=== PATIENT | male | born 1950 | race Caucasian/White ===

== ENCOUNTER 2022-08-24 11:58 | Emergency (ER) | payer OTHER, MEDICAID, SELFPAY ==
[2022-08-24] VITALS (32 sets, daily range): BP systolic 144–187; BP diastolic 83–115; PULSE 83–103; RESP 5–47; TEMP 37.4; O2SAT 89–97; BMI 26.5
--- NOTE | 2022-08-24 12:13 | DI.RAD.S_ITS ---
PROCEDURE: XR CHEST 2V INDICATIONS: URI, coughing up green TECHNIQUE: 2 views of the chest were acquired. COMPARISON: None. FINDINGS: Surgical changes and devices: None. Lungs and pleura: Coarse interstitial markings bilaterally, particularly in the lower lungs sparing costophrenic sulci. No dense parenchymal consolidations, significant pleural effusions, or pneumothorax. Mediastinum: Heart size is normal. Central pulmonary arteries are slightly prominent. No significant central venous congestion. Bones and chest wall: No suspicious bony abnormalities. Soft tissues appear unremarkable. IMPRESSION: 1. Coarse interstitial markings may indicate chronic interstitial lung disease, viral pneumonitis, senescent changes. Presence of an acute process is uncertain. Dictated by: Rita Calles M.D. on 08/24/2022 at 12:32 Approved by: Rita Calles M.D. on 08/24/2022 at 12:35
[2022-08-24 13:02] LABS: Influenza A - CEPHEID Flu A NEGATIVE (NEGATIVE); Influenza B - CEPHEID Flu B NEGATIVE (NEGATIVE); Respiratory Syncytial Virus Negative (Negative)
--- NOTE | 2022-08-24 13:49 | PC.NURSE ---
Pt reports exposure to battery acid about 1 year ago.
[2022-08-24 13:53] LABS: COVID-19 CEPHEID 4-PLEX PCR Negative (Negative)
--- NOTE | 2022-08-24 14:13 | ED_ITS ---
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 (Vancomycin Trough) 1 request MISC 0600 ONE Stop: 08/27/22 06:01 Last Admin: 08/27/22 07:07 Dose: Not Given Documented By: HNG Vancomycin HCl (Vancomycin Peak) 1 request [facility] [place] 0900 ONE Stop: 08/27/22 09:01 Last Admin: 08/27/22 10:52 Dose: 1 request Documented By: GUILLERMO Vital Signs Vital signs: Vital Signs - 8 hr 08/27/22 03:30 08/27/22 04:00 08/27/22 04:01 Pulse Rate 63 62 Respiratory Rate 18 16 Blood Pressure 118/69 Pulse Oximetry 94 94 Oxygen Delivery Method Oxygen Flow Rate 08/27/22 04:01 08/27/22 07:57 08/27/22 07:58 Pulse Rate 63 79 Respiratory Rate 17 21 Blood Pressure 167/88 H Pulse Oximetry 94 95 Oxygen Delivery Method Nasal Cannula Oxygen Flow Rate 2 08/27/22 07:58 08/27/22 08:00 08/27/22 08:00 Pulse Rate 76 77 Respiratory Rate 21 19 Blood Pressure 168/93 H Pulse Oximetry 95 95 Oxygen Delivery Method Oxygen Flow Rate 08/27/22 08:30 08/27/22 08:30 08/27/22 09:00 Pulse Rate 88 Respiratory Rate 21 Blood Pressure 159/86 H 162/80 H Pulse Oximetry 95 Oxygen Delivery Method Nasal Cannula Oxygen Flow Rate 1 08/27/22 09:00 08/27/22 09:30 08/27/22 09:30 Pulse Rate 83 84 Respiratory Rate 18 21 Blood Pressure 150/84 H Pulse Oximetry 96 94 Oxygen Delivery Method Room Air Oxygen Flow Rate 08/27/22 09:59 08/27/22 10:00 08/27/22 10:00 Pulse Rate 74 77 Respiratory Rate 19 19 Blood Pressure 145/81 H Pulse Oximetry 90 L 90 L Oxygen Delivery Method Oxygen Flow Rate 08/27/22 10:30 Pulse Rate 79 Respiratory Rate 16 Blood Pressure Pulse Oximetry 92 Oxygen Delivery Method Oxygen Flow Rate <Finn Cali DO - Last Filed: 08/25/22 18:44> Orders Ordered: Discontinued Medications Amlodipine Besylate (Amlodipine 5 Mg Tablet) 5 mg PO NOW ONE Stop: 08/24/22 19:54 Last Admin: 08/24/22 21:58 Dose: 5 mg Documented By: DUANE Amlodipine Besylate (Amlodipine 5 Mg Tablet) 5 mg PO DAILY [facility] Last Admin: 08/26/22 08:13 Dose: 5 mg Documented By: Admin: 08/25/22 10:58 Dose: 5 mg Documented By: RB Amlodipine Besylate (Amlodipine 5 Mg Tablet) 10 mg PO NOW ONE Stop: 08/26/22 17:00 Last Admin: 08/26/22 17:03 Dose: 10 mg Documented By: RB Amlodipine Besylate (Amlodipine 5 Mg Tablet) 10 mg PO DAILY [facility] Last Admin: 08/27/22 08:28 Dose: 10 mg Documented By: GUILLERMO Aspirin (Aspirin 81 Mg Chew Tab) 324 mg PO NOW ONE Stop: 08/24/22 15:15 Last Admin: 08/24/22 15:20 Dose: 324 mg Documented By: DUANE Azithromycin (Azithromycin 250 Mg Tablet) 500 mg PO NOW ONE Stop: 08/24/22 17:32 Last Admin: 08/24/22 18:16 Dose: 500 mg Documented By: RB Carvedilol (Carvedilol 3.125 Mg Tablet) 6.25 mg PO BID [facility] Last Admin: 08/27/22 08:28 Dose: 6.25 mg Documented By: Admin: 08/26/22 20:53 Dose: 6.25 mg Documented By: VIJAYA Diazepam (Diazepam 5 Mg Tablet) 5 mg PO NOW ONE Stop: 08/24/22 21:56 Last Admin: 08/24/22 22:01 Dose: 5 mg Documented By: DUANE Diazepam (Diazepam 5 Mg Tablet) 5 mg PO NOW ONE Stop: 08/26/22 01:26 Last Admin: 08/26/22 01:32 Dose: 5 mg Documented By: ROLANDO Diazepam (Diazepam 5 Mg Tablet) 5 mg PO BEDTIME [facility] Last Admin: 08/26/22 23:44 Dose: 5 mg Documented By: VIJAYA POTASSIUM CHLORIDE IN WATER (Potassium Cl 10 Meq/100 Ml Leigh) 10 meq in 100 mls @ 100 mls/hr IV Q1H [facility] Stop: 08/24/22 18:59 Last Infusion: 08/24/22 20:16 Dose: 0 mls/hr Documented By: Admin: 08/24/22 19:05 Dose: 100 mls/hr Documented By: Infusion: 08/24/22 19:04 Dose: 0 mls/hr Documented By: Admin: 08/24/22 17:20 Dose: 100 mls/hr Documented By: Infusion: 08/24/22 17:18 Dose: 0 mls/hr Documented By: Admin: 08/24/22 16:16 Dose: 100 mls/hr Documented By: Infusion: 08/24/22 16:07 Dose: 100 mls/hr Documented By: Admin: 08/24/22 15:07 Dose: 100 mls/hr Documented By: SB Sodium Chloride (Normal Saline 0.9%) 1,000 mls @ 100 mls/hr IV CONT [facility] Last Infusion: 08/24/22 22:17 Dose: 0 mls/hr Documented By: Admin: 08/24/22 15:09 Dose: 100 mls/hr Documented By: SB Ceftriaxone Sodium 2,000 mg/ (Sodium Chloride) 100 mls @ 200 mls/hr IV NOW ONE Stop: 08/24/22 17:32 Last Infusion: 08/24/22 19:04 Dose: 0 mls/hr Documented By: Admin: 08/24/22 18:16 Dose: 200 mls/hr Documented By: RB Cefepime HCl 2 gm/ Sodium (Chloride) 100 mls @ 200 mls/hr IV NOW ONE Stop: 08/24/22 19:54 Last Infusion: 08/24/22 21:50 Dose: 0 mls/hr Documented By: Admin: 08/24/22 20:18 Dose: 200 mls/hr Documented By: SB Cefepime HCl 2 gm/ Sodium (Chloride) 100 mls @ 200 mls/hr IV Q8HR [facility] Last Admin: 08/25/22 22:18 Dose: Not Given Documented By: Infusion: 08/25/22 21:54 Dose: 0 mls/hr Documented By: Admin: 08/25/22 21:23 Dose: 200 mls/hr Documented By: HNG Vancomycin HCl (Vancomycin) 1,000 mg in 200 mls @ 200 mls/hr IV NOW ONE Stop: 08/25/22 09:59 Last Infusion: 08/25/22 10:24 Dose: 0 mls/hr Documented By: Admin: 08/25/22 09:24 Dose: 200 mls/hr Documented By: RB POTASSIUM CHLORIDE IN WATER (Potassium Cl 10 Meq/100 Ml Leigh) 10 meq in 100 mls @ 100 mls/hr IV Q1H [facility] Stop: 08/25/22 12:14 Last Infusion: 08/25/22 13:31 Dose: 0 mls/hr Documented By: Admin: 08/25/22 12:23 Dose: 100 mls/hr Documented By: Infusion: 08/25/22 12:22 Dose: 100 mls/hr Documented By: Admin: 08/25/22 11:22 Dose: 100 mls/hr Documented By: Infusion: 08/25/22 11:22 Dose: 100 mls/hr Documented By: Admin: 08/25/22 10:21 Dose: 100 mls/hr Documented By: Infusion: 08/25/22 10:20 Dose: 0 mls/hr Documented By: Admin: 08/25/22 09:14 Dose: 100 mls/hr Documented By: EUSEBIA Sodium Chloride (Normal Saline 0.9%) 1,000 mls @ 125 mls/hr IV CONT [facility] Last Infusion: 08/25/22 17:41 Dose: 0 mls/hr Documented By: Admin: 08/25/22 09:19 Dose: 125 mls/hr Documented By: EUSEBIA Vancomycin HCl/Dextrose (Vancomycin) 1,500 mg in 300 mls @ 200 mls/hr IV Q12H [facility] Last Infusion: 08/27/22 09:34 Dose: 0 mls/hr Documented By: Admin: 08/27/22 07:51 Dose: 200 mls/hr Documented By: Infusion: 08/26/22 19:43 Dose: 0 mls/hr Documented By: Admin: 08/26/22 17:58 Dose: 200 mls/hr Documented By: Infusion: 08/26/22 10:00 Dose: 0 mls/hr Documented By: Admin: 08/26/22 08:12 Dose: 200 mls/hr Documented By: Infusion: 08/25/22 21:01 Dose: 0 mls/hr Documented By: Admin: 08/25/22 19:24 Dose: 200 mls/hr Documented By: ROLANDO POTASSIUM CHLORIDE IN WATER (Potassium Cl 10 Meq/100 Ml Leigh) 10 meq in 100 mls @ 100 mls/hr IV Q1H [facility] Stop: 08/26/22 01:44 Last Infusion: 08/26/22 04:01 Dose: 0 mls/hr Documented By: Admin: 08/26/22 02:49 Dose: 100 mls/hr Documented By: Infusion: 08/26/22 02:49 Dose: 0 mls/hr Documented By: Admin: 08/26/22 01:15 Dose: 100 mls/hr Documented By: Infusion: 08/26/22 01:15 Dose: 0 mls/hr Documented By: Admin: 08/25/22 23:36 Dose: 100 mls/hr Documented By: Infusion: 08/25/22 23:36 Dose: 0 mls/hr Documented By: Admin: 08/25/22 22:11 Dose: 100 mls/hr Documented By: Infusion: 08/25/22 22:11 Dose: 0 mls/hr Documented By: Admin: 08/25/22 20:51 Dose: 100 mls/hr Documented By: Infusion: 08/25/22 20:51 Dose: 0 mls/hr Documented By: Admin: 08/25/22 19:42 Dose: 100 mls/hr Documented By: HNG Cefepime HCl 2 gm/ Sodium (Chloride) 100 mls @ 200 mls/hr IV Q8HR [facility] Last Infusion: 08/27/22 07:50 Dose: 0 mls/hr Documented By: Admin: 08/27/22 06:09 Dose: 200 mls/hr Documented By: Infusion: 08/26/22 21:49 Dose: 0 mls/hr Documented By: Admin: 08/26/22 20:45 Dose: 200 mls/hr Documented By: Infusion: 08/26/22 14:29 Dose: 0 mls/hr Documented By: Admin: 08/26/22 13:49 Dose: 200 mls/hr Documented By: Infusion: 08/26/22 07:58 Dose: 0 mls/hr Documented By: Admin: 08/26/22 06:58 Dose: 200 mls/hr Documented By: HNG POTASSIUM CHLORIDE IN WATER (Potassium Cl 10 Meq/100 Ml Leigh) 10 meq in 100 mls @ 100 mls/hr IV Q1H [facility] Stop: 08/26/22 22:44 Last Infusion: 08/27/22 00:19 Dose: 0 mls/hr Documented By: Admin: 08/26/22 22:55 Dose: 100 mls/hr Documented By: Infusion: 08/26/22 22:54 Dose: 0 mls/hr Documented By: Admin: 08/26/22 21:49 Dose: 100 mls/hr Documented By: Infusion: 08/26/22 21:44 Dose: 0 mls/hr Documented By: Admin: 08/26/22 20:42 Dose: 100 mls/hr Documented By: Infusion: 08/26/22 19:44 Dose: 100 mls/hr Documented By: Admin: 08/26/22 18:44 Dose: 100 mls/hr Documented By: EUSEBIA Sodium Chloride (Normal Saline 0.9%) 1,000 mls @ 125 mls/hr IV NOW ONE Stop: 08/27/22 02:34 Last Infusion: 08/27/22 01:46 Dose: 0 mls/hr Documented By: Admin: 08/26/22 18:43 Dose: 125 mls/hr Documented By: EUSEBIA Losartan Potassium (Losartan 50 Mg Tablet) 100 mg PO NOW ONE Stop: 08/24/22 19:54 Last Admin: 08/24/22 21:58 Dose: 100 mg Documented By: DUANE Losartan Potassium (Losartan 50 Mg Tablet) 100 mg PO DAILY [facility] Last Admin: 08/27/22 08:29 Dose: 100 mg Documented By: Admin: 08/26/22 09:09 Dose: 100 mg Documented By: Admin: 08/25/22 10:58 Dose: 100 mg Documented By: EUSEBIA Potassium Chloride (Potassium Chloride 20 Meq Tab) 40 meq PO NOW ONE Stop: 08/24/22 15:04 Last Admin: 08/24/22 15:20 Dose: 40 meq Documented By: DUANE Potassium Chloride (Potassium Chloride 20 Meq Tab) 40 meq PO NOW ONE Stop: 08/25/22 19:33 Last Admin: 08/25/22 19:41 Dose: 40 meq Documented By: ROLANDO Potassium Chloride ([facility]eq Tab) [facility] Last Admin: 08/27/22 08:28 Dose: 40 meq Documented By: Admin: 08/26/22 08:13 Dose: 40 meq Documented By: EUSEBIA Potassium Chloride (Potassium Chloride 20 Meq Tab) 40 meq PO NOW ONE Stop: 08/26/22 18:33 Last Admin: 08/26/22 18:43 Dose: 40 meq Documented By: RB Prednisone (Prednisone 20 Mg Tablet) 60 mg PO NOW ONE Stop: 08/24/22 17:08 Last Admin: 08/24/22 17:20 Dose: 60 mg Documented By: SB Vancomycin HCl (Vancomycin Per Pharmacy) 1 request MISC NOW ONE Stop: 08/25/22 18:23 Last Admin: 08/25/22 18:41 Dose: Not Given Documented By: RB Vancomycin HCl (Vancomycin Trough) 1 request MISC 0600 ONE Stop: 08/27/22 06:01 Last Admin: 08/27/22 07:07 Dose: Not Given Documented By: HNG Vancomycin HCl (Vancomycin Peak) 1 request MISC 0900 ONE Stop: 08/27/22 09:01 Last Admin: 08/27/22 10:52 Dose: 1 request Documented By: GUILLERMO Vital Signs Vital signs: Vital Signs - 8 hr 08/27/22 03:30 08/27/22 04:00 08/27/22 04:01 Pulse Rate 63 62 Respiratory Rate 18 16 Blood Pressure 118/69 Pulse Oximetry 94 94 Oxygen Delivery Method Oxygen Flow Rate 08/27/22 04:01 08/27/22 07:57 08/27/22 07:58 Pulse Rate 63 79 Respiratory Rate 17 21 Blood Pressure 167/88 H Pulse Oximetry 94 95 Oxygen Delivery Method Nasal Cannula Oxygen Flow Rate 2 08/27/22 07:58 08/27/22 08:00 08/27/22 08:00 Pulse Rate 76 77 Respiratory Rate 21 19 Blood Pressure 168/93 H Pulse Oximetry 95 95 Oxygen Delivery Method Oxygen Flow Rate 08/27/22 08:30 08/27/22 08:30 08/27/22 09:00 Pulse Rate 88 Respiratory Rate 21 Blood Pressure 159/86 H 162/80 H Pulse Oximetry 95 Oxygen Delivery Method Nasal Cannula Oxygen Flow Rate 1 08/27/22 09:00 08/27/22 09:30 08/27/22 09:30 Pulse Rate 83 84 Respiratory Rate 18 21 Blood Pressure 150/84 H Pulse Oximetry 96 94 Oxygen Delivery Method Room Air Oxygen Flow Rate 08/27/22 09:59 08/27/22 10:00 08/27/22 10:00 Pulse Rate 74 77 Respiratory Rate 19 19 Blood Pressure 145/81 H Pulse Oximetry 90 L 90 L Oxygen Delivery Method Oxygen Flow Rate 08/27/22 10:30 Pulse Rate 79 Respiratory Rate 16 Blood Pressure Pulse Oximetry 92 Oxygen Delivery Method Oxygen Flow Rate <Caitlin Emery, DO - Last Filed: 08/27/22 22:13> Orders Ordered: Discontinued Medications Amlodipine Besylate (Amlodipine 5 Mg Tablet) 5 mg PO NOW ONE Stop: 08/24/22 19:54 Last Admin: 08/24/22 21:58 Dose: 5 mg Documented By: DUANE Amlodipine Besylate (Amlodipine 5 Mg Tablet) 5 mg PO DAILY [facility] Last Admin: 08/26/22 08:13 Dose: 5 mg Documented By: Admin: 08/25/22 10:58 Dose: 5 mg Documented By: RB Amlodipine Besylate (Amlodipine 5 Mg Tablet) 10 mg PO NOW ONE Stop: 08/26/22 17:00 Last Admin: 08/26/22 17:03 Dose: 10 mg Documented By: RB Amlodipine Besylate (Amlodipine 5 Mg Tablet) 10 mg PO DAILY [facility] Last Admin: 08/27/22 08:28 Dose: 10 mg Documented By: GUILLERMO Aspirin (Aspirin 81 Mg Chew Tab) 324 mg PO NOW ONE Stop: 08/24/22 15:15 Last Admin: 08/24/22 15:20 Dose: 324 mg Documented By: DUANE Azithromycin (Azithromycin 250 Mg Tablet) 500 mg PO NOW ONE Stop: 08/24/22 17:32 Last Admin: 08/24/22 18:16 Dose: 500 mg Documented By: RB Carvedilol (Carvedilol 3.125 Mg Tablet) 6.25 mg PO BID [facility] Last Admin: 08/27/22 08:28 Dose: 6.25 mg Documented By: Admin: 08/26/22 20:53 Dose: 6.25 mg Documented By: VIJAYA Diazepam (Diazepam 5 Mg Tablet) 5 mg PO NOW ONE Stop: 08/24/22 21:56 Last Admin: 08/24/22 22:01 Dose: 5 mg Documented By: DUANE Diazepam (Diazepam 5 Mg Tablet) 5 mg PO NOW ONE Stop: 08/26/22 01:26 Last Admin: 08/26/22 01:32 Dose: 5 mg Documented By: ROLANDO Diazepam (Diazepam 5 Mg Tablet) 5 mg PO BEDTIME [facility] Last Admin: 08/26/22 23:44 Dose: 5 mg Documented By: VIJAYA POTASSIUM CHLORIDE IN WATER (Potassium Cl 10 Meq/100 Ml Leigh) 10 meq in 100 mls @ 100 mls/hr IV Q1H [facility] Stop: 08/24/22 18:59 Last Infusion: 08/24/22 20:16 Dose: 0 mls/hr Documented By: Admin: 08/24/22 19:05 Dose: 100 mls/hr Documented By: Infusion: 08/24/22 19:04 Dose: 0 mls/hr Documented By: Admin: 08/24/22 17:20 Dose: 100 mls/hr Documented By: Infusion: 08/24/22 17:18 Dose: 0 mls/hr Documented By: Admin: 08/24/22 16:16 Dose: 100 mls/hr Documented By: Infusion: 08/24/22 16:07 Dose: 100 mls/hr Documented By: Admin: 08/24/22 15:07 Dose: 100 mls/hr Documented By: SB Sodium Chloride (Normal Saline 0.9%) 1,000 mls @ 100 mls/hr IV CONT [facility] Last Infusion: 08/24/22 22:17 Dose: 0 mls/hr Documented By: Admin: 08/24/22 15:09 Dose: 100 mls/hr Documented By: SB Ceftriaxone Sodium 2,000 mg/ (Sodium Chloride) 100 mls @ 200 mls/hr IV NOW ONE Stop: 08/24/22 17:32 Last Infusion: 08/24/22 19:04 Dose: 0 mls/hr Documented By: Admin: 08/24/22 18:16 Dose: 200 mls/hr Documented By: RB Cefepime HCl 2 gm/ Sodium (Chloride) 100 mls @ 200 mls/hr IV NOW ONE Stop: 08/24/22 19:54 Last Infusion: 08/24/22 21:50 Dose: 0 mls/hr Documented By: Admin: 08/24/22 20:18 Dose: 200 mls/hr Documented By: SB Cefepime HCl 2 gm/ Sodium (Chloride) 100 mls @ 200 mls/hr IV Q8HR [facility] Last Admin: 08/25/22 22:18 Dose: Not Given Documented By: Infusion: 08/25/22 21:54 Dose: 0 mls/hr Documented By: Admin: 08/25/22 21:23 Dose: 200 mls/hr Documented By: ROLANDO Vancomycin HCl (Vancomycin) 1,000 mg in 200 mls @ 200 mls/hr IV NOW ONE Stop: 08/25/22 09:59 Last Infusion: 08/25/22 10:24 Dose: 0 mls/hr Documented By: Admin: 08/25/22 09:24 Dose: 200 mls/hr Documented By: RB POTASSIUM CHLORIDE IN WATER (Potassium Cl 10 Meq/100 Ml Leigh) 10 meq in 100 mls @ 100 mls/hr IV Q1H [facility] Stop: 08/25/22 12:14 Last Infusion: 08/25/22 13:31 Dose: 0 mls/hr Documented By: Admin: 08/25/22 12:23 Dose: 100 mls/hr Documented By: Infusion: 08/25/22 12:22 Dose: 100 mls/hr Documented By: Admin: 08/25/22 11:22 Dose: 100 mls/hr Documented By: Infusion: 08/25/22 11:22 Dose: 100 mls/hr Documented By: Admin: 08/25/22 10:21 Dose: 100 mls/hr Documented By: Infusion: 08/25/22 10:20 Dose: 0 mls/hr Documented By: Admin: 08/25/22 09:14 Dose: 100 mls/hr Documented By: RB Sodium Chloride (Normal Saline 0.9%) 1,000 mls @ 125 mls/hr IV CONT [facility] Last Infusion: 08/25/22 17:41 Dose: 0 mls/hr Documented By: Admin: 08/25/22 09:19 Dose: 125 mls/hr Documented By: EUSEBIA Vancomycin HCl/Dextrose (Vancomycin) 1,500 mg in 300 mls @ 200 mls/hr IV Q12H [facility] Last Infusion: 08/27/22 09:34 Dose: 0 mls/hr Documented By: Admin: 08/27/22 07:51 Dose: 200 mls/hr Documented By: Infusion: 08/26/22 19:43 Dose: 0 mls/hr Documented By: Admin: 08/26/22 17:58 Dose: 200 mls/hr Documented By: Infusion: 08/26/22 10:00 Dose: 0 mls/hr Documented By: Admin: 08/26/22 08:12 Dose: 200 mls/hr Documented By: Infusion: 08/25/22 21:01 Dose: 0 mls/hr Documented By: Admin: 08/25/22 19:24 Dose: 200 mls/hr Documented By: HNG POTASSIUM CHLORIDE IN WATER (Potassium Cl 10 Meq/100 Ml Leigh) 10 meq in 100 mls @ 100 mls/hr IV Q1H [facility] Stop: 08/26/22 01:44 Last Infusion: 08/26/22 04:01 Dose: 0 mls/hr Documented By: Admin: 08/26/22 02:49 Dose: 100 mls/hr Documented By: Infusion: 08/26/22 02:49 Dose: 0 mls/hr Documented By: Admin: 08/26/22 01:15 Dose: 100 mls/hr Documented By: Infusion: 08/26/22 01:15 Dose: 0 mls/hr Documented By: Admin: 08/25/22 23:36 Dose: 100 mls/hr Documented By: Infusion: 08/25/22 23:36 Dose: 0 mls/hr Documented By: Admin: 08/25/22 22:11 Dose: 100 mls/hr Documented By: Infusion: 08/25/22 22:11 Dose: 0 mls/hr Documented By: Admin: 08/25/22 20:51 Dose: 100 mls/hr Documented By: Infusion: 08/25/22 20:51 Dose: 0 mls/hr Documented By: Admin: 08/25/22 19:42 Dose: 100 mls/hr Documented By: ROLANDO Cefepime HCl 2 gm/ Sodium (Chloride) 100 mls @ 200 mls/hr IV Q8HR [facility] Last Infusion: 08/27/22 07:50 Dose: 0 mls/hr Documented By: Admin: 08/27/22 06:09 Dose: 200 mls/hr Documented By: Infusion: 08/26/22 21:49 Dose: 0 mls/hr Documented By: Admin: 08/26/22 20:45 Dose: 200 mls/hr Documented By: Infusion: 08/26/22 14:29 Dose: 0 mls/hr Documented By: Admin: 08/26/22 13:49 Dose: 200 mls/hr Documented By: Infusion: 08/26/22 07:58 Dose: 0 mls/hr Documented By: Admin: 08/26/22 06:58 Dose: 200 mls/hr Documented By: ROLANDO POTASSIUM CHLORIDE IN WATER (Potassium Cl 10 Meq/100 Ml Leigh) 10 meq in 100 mls @ 100 mls/hr IV Q1H [facility] Stop: 08/26/22 22:44 Last Infusion: 08/27/22 00:19 Dose: 0 mls/hr Documented By: Admin: 08/26/22 22:55 Dose: 100 mls/hr Documented By: Infusion: 08/26/22 22:54 Dose: 0 mls/hr Documented By: Admin: 08/26/22 21:49 Dose: 100 mls/hr Documented By: Infusion: 08/26/22 21:44 Dose: 0 mls/hr Documented By: Admin: 08/26/22 20:42 Dose: 100 mls/hr Documented By: Infusion: 08/26/22 19:44 Dose: 100 mls/hr Documented By: Admin: 08/26/22 18:44 Dose: 100 mls/hr Documented By: EUSEBIA Sodium Chloride (Normal Saline 0.9%) 1,000 mls @ 125 mls/hr IV NOW ONE Stop: 08/27/22 02:34 Last Infusion: 08/27/22 01:46 Dose: 0 mls/hr Documented By: Admin: 08/26/22 18:43 Dose: 125 mls/hr Documented By: EUSEBIA Losartan Potassium (Losartan 50 Mg Tablet) 100 mg PO NOW ONE Stop: 08/24/22 19:54 Last Admin: 08/24/22 21:58 Dose: 100 mg Documented By: DUANE Losartan Potassium (Losartan 50 Mg Tablet) 100 mg PO DAILY [facility] Last Admin: 08/27/22 08:29 Dose: 100 mg Documented By: Admin: 08/26/22 09:09 Dose: 100 mg Documented By: Admin: 08/25/22 10:58 Dose: 100 mg Documented By: EUSEBIA Potassium Chloride (Potassium Chloride 20 Meq Tab) 40 meq PO NOW ONE Stop: 08/24/22 15:04 Last Admin: 08/24/22 15:20 Dose: 40 meq Documented By: SB Potassium Chloride (Potassium Chloride 20 Meq Tab) 40 meq PO NOW ONE Stop: 08/25/22 19:33 Last Admin: 08/25/22 19:41 Dose: 40 meq Documented By: ROLANDO Potassium Chloride (Potassium Chloride 20 Meq Tab) 40 meq PO DAILYCC [facility] Last Admin: 08/27/22 08:28 Dose: 40 meq Documented By: Admin: 08/26/22 08:13 Dose: 40 meq Documented By: RB Potassium Chloride (Potassium Chloride 20 Meq Tab) 40 meq PO NOW ONE Stop: 08/26/22 18:33 Last Admin: 08/26/22 18:43 Dose: 40 meq Documented By: EUSEBIA Prednisone (Prednisone 20 Mg Tablet) 60 mg PO NOW ONE Stop: 08/24/22 17:08 Last Admin: 08/24/22 17:20 Dose: 60 mg Documented By: DUANE Vancomycin HCl (Vancomycin Per Pharmacy) 1 request MISC NOW ONE Stop: 08/25/22 18:23 Last Admin: 08/25/22 18:41 Dose: Not Given Documented By: EUSEBIA Vancomycin HCl (Vancomycin Trough) 1 request MISC 0600 ONE Stop: 08/27/22 06:01 Last Admin: 08/27/22 07:07 Dose: Not Given Documented By: ROLANDO Vancomycin HCl (Vancomycin Peak) 1 request MISC 0900 ONE Stop: 08/27/22 09:01 Last Admin: 08/27/22 10:52 Dose: 1 request Documented By: GUILLERMO Vital Signs Vital signs: Vital Signs - 8 hr 08/27/22 03:30 08/27/22 04:00 08/27/22 04:01 Pulse Rate 63 62 Respiratory Rate 18 16 Blood Pressure 118/69 Pulse Oximetry 94 94 Oxygen Delivery Method Oxygen Flow Rate 08/27/22 04:01 08/27/22 07:57 08/27/22 07:58 Pulse Rate 63 79 Respiratory Rate 17 21 Blood Pressure 167/88 H Pulse Oximetry 94 95 Oxygen Delivery Method Nasal Cannula Oxygen Flow Rate 2 08/27/22 07:58 08/27/22 08:00 08/27/22 08:00 Pulse Rate 76 77 Respiratory Rate 21 19 Blood Pressure 168/93 H Pulse Oximetry 95 95 Oxygen Delivery Method Oxygen Flow Rate 08/27/22 08:30 08/27/22 08:30 08/27/22 09:00 Pulse Rate 88 Respiratory Rate 21 Blood Pressure 159/86 H 162/80 H Pulse Oximetry 95 Oxygen Delivery Method Nasal Cannula Oxygen Flow Rate 1 08/27/22 09:00 08/27/22 09:30 08/27/22 09:30 Pulse Rate 83 84 Respiratory Rate 18 21 Blood Pressure 150/84 H Pulse Oximetry 96 94 Oxygen Delivery Method Room Air Oxygen Flow Rate 08/27/22 09:59 08/27/22 10:00 08/27/22 10:00 Pulse Rate 74 77 Respiratory Rate 19 19 Blood Pressure 145/81 H Pulse Oximetry 90 L 90 L Oxygen Delivery Method Oxygen Flow Rate 08/27/22 10:30 Pulse Rate 79 Respiratory Rate 16 Blood Pressure Pulse Oximetry 92 Oxygen Delivery Method Oxygen Flow Rate <He Olmedo MD - Last Filed: 09/08/22 12:06> Course Course Narrative: Honorio: August 26, 2022 at 9:30 a.m.. I spoke with Dr Pinto, configuration management consultant on-call consult, states patient may not need inpatient bronchoscopy. It can be done on outpatient. Would not be out of reason to admit he patient here 10:[address] Sunshine, hospitalist here, at this time he will follow as consult. But patient needs to be transferred for bronchoscopy. Honorio: s/o dr emery I spoke with Dr. Fuchs, general surgery. They do not do bronchoscopy. No new changes here today. Orders Ordered: Discontinued Medications Amlodipine Besylate (Amlodipine 5 Mg Tablet) 5 mg PO NOW ONE Stop: 08/24/22 19:54 Last Admin: 08/24/22 21:58 Dose: 5 mg Documented By: SB Amlodipine Besylate (Amlodipine 5 Mg Tablet) 5 mg PO DAILY [facility] Last Admin: 08/26/22 08:13 Dose: 5 mg Documented By: Admin: 08/25/22 10:58 Dose: 5 mg Documented By: RB Amlodipine Besylate (Amlodipine 5 Mg Tablet) 10 mg PO NOW ONE Stop: 08/26/22 17:00 Last Admin: 08/26/22 17:03 Dose: 10 mg Documented By: RB Amlodipine Besylate (Amlodipine 5 Mg Tablet) 10 mg PO DAILY [facility] Last Admin: 08/27/22 08:28 Dose: 10 mg Documented By: GUILLERMO Aspirin (Aspirin 81 Mg Chew Tab) 324 mg PO NOW ONE Stop: 08/24/22 15:15 Last Admin: 08/24/22 15:20 Dose: 324 mg Documented By: SB Azithromycin (Azithromycin 250 Mg Tablet) 500 mg PO NOW ONE Stop: 08/24/22 17:32 Last Admin: 08/24/22 18:16 Dose: 500 mg Documented By: RB Carvedilol (Carvedilol 3.125 Mg Tablet) 6.25 mg PO BID [facility] Last Admin: 08/27/22 08:28 Dose: 6.25 mg Documented By: Admin: 08/26/22 20:53 Dose: 6.25 mg Documented By: AW Diazepam (Diazepam 5 Mg Tablet) 5 mg PO NOW ONE Stop: 08/24/22 21:56 Last Admin: 08/24/22 22:01 Dose: 5 mg Documented By: SB Diazepam (Diazepam 5 Mg Tablet) 5 mg PO NOW ONE Stop: 08/26/22 01:26 Last Admin: 08/26/22 01:32 Dose: 5 mg Documented By: ROLANDO Diazepam (Diazepam 5 Mg Tablet) 5 mg PO BEDTIME [facility] Last Admin: 08/26/22 23:44 Dose: 5 mg Documented By: AW POTASSIUM CHLORIDE IN WATER (Potassium Cl 10 Meq/100 Ml Leigh) 10 meq in 100 mls @ 100 mls/hr IV Q1H ARACELI Stop: 08/24/22 18:59 Last Infusion: 08/24/22 20:16 Dose: 0 mls/hr Documented By: Admin: 08/24/22 19:05 Dose: 100 mls/hr Documented By: Infusion: 08/24/22 19:04 Dose: 0 mls/hr Documented By: Admin: 08/24/22 17:20 Dose: 100 mls/hr Documented By: Infusion: 08/24/22 17:18 Dose: 0 mls/hr Documented By: Admin: 08/24/22 16:16 Dose: 100 mls/hr Documented By: Infusion: 08/24/22 16:07 Dose: 100 mls/hr Documented By: Admin: 08/24/22 15:07 Dose: 100 mls/hr Documented By: SB Sodium Chloride (Normal Saline 0.9%) 1,000 mls @ 100 mls/hr IV CONT ARACELI Last Infusion: 08/24/22 22:17 Dose: 0 mls/hr Documented By: Admin: 08/24/22 15:09 Dose: 100 mls/hr Documented By: SB Ceftriaxone Sodium 2,000 mg/ (Sodium Chloride) 100 mls @ 200 mls/hr IV NOW ONE Stop: 08/24/22 17:32 Last Infusion: 08/24/22 19:04 Dose: 0 mls/hr Documented By: Admin: 08/24/22 18:16 Dose: 200 mls/hr Documented By: RB Cefepime HCl 2 gm/ Sodium (Chloride) 100 mls @ 200 mls/hr IV NOW ONE Stop: 08/24/22 19:54 Last Infusion: 08/24/22 21:50 Dose: 0 mls/hr Documented By: Admin: 08/24/22 20:18 Dose: 200 mls/hr Documented By: SB Cefepime HCl 2 gm/ Sodium (Chloride) 100 mls @ 200 mls/hr IV Q8HR ARACELI Last Admin: 08/25/22 22:18 Dose: Not Given Documented By: HNWilbert Infusion: 08/25/22 21:54 Dose: 0 mls/hr Documented By: Admin: 08/25/22 21:23 Dose: 200 mls/hr Documented By: ROLANDO Vancomycin HCl (Vancomycin) 1,000 mg in 200 mls @ 200 mls/hr IV NOW ONE Stop: 08/25/22 09:59 Last Infusion: 08/25/22 10:24 Dose: 0 mls/hr Documented By: Admin: 08/25/22 09:24 Dose: 200 mls/hr Documented By: EUSEBIA POTASSIUM CHLORIDE IN WATER (Potassium Cl 10 Meq/100 Ml Leigh) 10 meq in 100 mls @ 100 mls/hr IV Q1H ARACELI Stop: 08/25/22 12:14 Last Infusion: 08/25/22 13:31 Dose: 0 mls/hr Documented By: Admin: 08/25/22 12:23 Dose: 100 mls/hr Documented By: Infusion: 08/25/22 12:22 Dose: 100 mls/hr Documented By: Admin: 08/25/22 11:22 Dose: 100 mls/hr Documented By: Infusion: 08/25/22 11:22 Dose: 100 mls/hr Documented By: Admin: 08/25/22 10:21 Dose: 100 mls/hr Documented By: Infusion: 08/25/22 10:20 Dose: 0 mls/hr Documented By: Admin: 08/25/22 09:14 Dose: 100 mls/hr Documented By: EUSEBIA Sodium Chloride (Normal Saline 0.9%) 1,000 mls @ 125 mls/hr IV CONT ARACELI Last Infusion: 08/25/22 17:41 Dose: 0 mls/hr Documented By: Admin: 08/25/22 09:19 Dose: 125 mls/hr Documented By: RB Vancomycin HCl/Dextrose (Vancomycin) 1,500 mg in 300 mls @ 200 mls/hr IV Q12H ARACELI Last Infusion: 08/27/22 09:34 Dose: 0 mls/hr Documented By: Admin: 08/27/22 07:51 Dose: 200 mls/hr Documented By: Infusion: 08/26/22 19:43 Dose: 0 mls/hr Documented By: Admin: 08/26/22 17:58 Dose: 200 mls/hr Documented By: Infusion: 08/26/22 10:00 Dose: 0 mls/hr Documented By: Admin: 08/26/22 08:12 Dose: 200 mls/hr Documented By: Infusion: 08/25/22 21:01 Dose: 0 mls/hr Documented By: Admin: 08/25/22 19:24 Dose: 200 mls/hr Documented By: ROLANDO POTASSIUM CHLORIDE IN WATER (Potassium Cl 10 Meq/100 Ml Leigh) 10 meq in 100 mls @ 100 mls/hr IV Q1H ARACELI Stop: 08/26/22 01:44 Last Infusion: 08/26/22 04:01 Dose: 0 mls/hr Documented By: Admin: 08/26/22 02:49 Dose: 100 mls/hr Documented By: Infusion: 08/26/22 02:49 Dose: 0 mls/hr Documented By: Admin: 08/26/22 01:15 Dose: 100 mls/hr Documented By: Infusion: 08/26/22 01:15 Dose: 0 mls/hr Documented By: Admin: 08/25/22 23:36 Dose: 100 mls/hr Documented By: Infusion: 08/25/22 23:36 Dose: 0 mls/hr Documented By: Admin: 08/25/22 22:11 Dose: 100 mls/hr Documented By: Infusion: 08/25/22 22:11 Dose: 0 mls/hr Documented By: Admin: 08/25/22 20:51 Dose: 100 mls/hr Documented By: Infusion: 08/25/22 20:51 Dose: 0 mls/hr Documented By: Admin: 08/25/22 19:42 Dose: 100 mls/hr Documented By: HNG Cefepime HCl 2 gm/ Sodium (Chloride) 100 mls @ 200 mls/hr IV Q8HR ARACELI Last Infusion: 08/27/22 07:50 Dose: 0 mls/hr Documented By: Admin: 08/27/22 06:09 Dose: 200 mls/hr Documented By: Infusion: 08/26/22 21:49 Dose: 0 mls/hr Documented By: Admin: 08/26/22 20:45 Dose: 200 mls/hr Documented By: Infusion: 08/26/22 14:29 Dose: 0 mls/hr Documented By: Admin: 08/26/22 13:49 Dose: 200 mls/hr Documented By: Infusion: 08/26/22 07:58 Dose: 0 mls/hr Documented By: Admin: 08/26/22 06:58 Dose: 200 mls/hr Documented By: HNG POTASSIUM CHLORIDE IN WATER (Potassium Cl 10 Meq/100 Ml Leigh) 10 meq in 100 mls @ 100 mls/hr IV Q1H ARACELI Stop: 08/26/22 22:44 Last Infusion: 08/27/22 00:19 Dose: 0 mls/hr Documented By: Admin: 08/26/22 22:55 Dose: 100 mls/hr Documented By: Infusion: 08/26/22 22:54 Dose: 0 mls/hr Documented By: Admin: 08/26/22 21:49 Dose: 100 mls/hr Documented By: Infusion: 08/26/22 21:44 Dose: 0 mls/hr Documented By: Admin: 08/26/22 20:42 Dose: 100 mls/hr Documented By: Infusion: 08/26/22 19:44 Dose: 100 mls/hr Documented By: Admin: 08/26/22 18:44 Dose: 100 mls/hr Documented By: RB Sodium Chloride (Normal Saline 0.9%) 1,000 mls @ 125 mls/hr IV NOW ONE Stop: 08/27/22 02:34 Last Infusion: 08/27/22 01:46 Dose: 0 mls/hr Documented By: Admin: 08/26/22 18:43 Dose: 125 mls/hr Documented By: RB Losartan Potassium (Losartan 50 Mg Tablet) 100 mg PO NOW ONE Stop: 08/24/22 19:54 Last Admin: 08/24/22 21:58 Dose: 100 mg Documented By: DUANE Losartan Potassium (Losartan 50 Mg Tablet) 100 mg PO DAILY [facility] Last Admin: 08/27/22 08:29 Dose: 100 mg Documented By: Admin: 08/26/22 09:09 Dose: 100 mg Documented By: Admin: 08/25/22 10:58 Dose: 100 mg Documented By: RB Potassium Chloride (Potassium Chloride 20 Meq Tab) 40 meq PO NOW ONE Stop: 08/24/22 15:04 Last Admin: 08/24/22 15:20 Dose: 40 meq Documented By: DUANE Potassium Chloride (Potassium Chloride 20 Meq Tab) 40 meq PO NOW ONE Stop: 08/25/22 19:33 Last Admin: 08/25/22 19:41 Dose: 40 meq Documented By: ROLANDO Potassium Chloride (Potassium Chloride 20 Meq Tab) [facility] Last Admin: 08/27/22 08:28 Dose: 40 meq Documented By: Admin: 08/26/22 08:13 Dose: 40 meq Documented By: EUSEBIA Potassium Chloride (Potassium Chloride 20 Meq Tab) 40 meq PO NOW ONE Stop: 08/26/22 18:33 Last Admin: 08/26/22 18:43 Dose: 40 meq Documented By: RB Prednisone (Prednisone 20 Mg Tablet) 60 mg PO NOW ONE Stop: 08/24/22 17:08 Last Admin: 08/24/22 17:20 Dose: 60 mg Documented By: DUANE Vancomycin HCl (Vancomycin Per Pharmacy) 1 request MISC NOW ONE Stop: 08/25/22 18:23 Last Admin: 08/25/22 18:41 Dose: Not Given Documented By: RB Vancomycin HCl (Vancomycin Trough) 1 request MISC 0600 ONE Stop: 08/27/22 06:01 Last Admin: 08/27/22 07:07 Dose: Not Given Documented By: HNG Vancomycin HCl (Vancomycin Peak) 1 request [facility] [place] 0900 ONE Stop: 08/27/22 09:01 Last Admin: 08/27/22 10:52 Dose: 1 request Documented By: GUILLERMO Reevaluation(s) Reevaluation #1: Honorio: Introduced myself to patient. He is in no distress. Has slightly diminished lung sounds on the bases. Speaking full sentences. Informed him we are still working on transferring however I did speak with configuration management consultant and it is dependent on hospitalist here to admit. August 26, 2022 Time: 10:10 Vital Signs Vital signs: Vital Signs - 8 hr 08/27/22 03:30 08/27/22 04:00 08/27/22 04:01 Pulse Rate 63 62 Respiratory Rate 18 16 Blood Pressure 118/69 Pulse Oximetry 94 94 Oxygen Delivery Method Oxygen Flow Rate 08/27/22 04:01 08/27/22 07:57 08/27/22 07:58 Pulse Rate 63 79 Respiratory Rate 17 21 Blood Pressure 167/88 H Pulse Oximetry 94 95 Oxygen Delivery Method Nasal Cannula Oxygen Flow Rate 2 08/27/22 07:58 08/27/22 08:00 08/27/22 08:00 Pulse Rate 76 77 Respiratory Rate 21 19 Blood Pressure 168/93 H Pulse Oximetry 95 95 Oxygen Delivery Method Oxygen Flow Rate 08/27/22 08:30 08/27/22 08:30 08/27/22 09:00 Pulse Rate 88 Respiratory Rate 21 Blood Pressure 159/86 H 162/80 H Pulse Oximetry 95 Oxygen Delivery Method Nasal Cannula Oxygen Flow Rate 1 08/27/22 09:00 08/27/22 09:30 08/27/22 09:30 Pulse Rate 83 84 Respiratory Rate 18 21 Blood Pressure 150/84 H Pulse Oximetry 96 94 Oxygen Delivery Method Room Air Oxygen Flow Rate 08/27/22 09:59 08/27/22 10:00 08/27/22 10:00 Pulse Rate 74 77 Respiratory Rate 19 19 Blood Pressure 145/81 H Pulse Oximetry 90 L 90 L Oxygen Delivery Method Oxygen Flow Rate 08/27/22 10:30 Pulse Rate 79 Respiratory Rate 16 Blood Pressure Pulse Oximetry 92 Oxygen Delivery Method Oxygen Flow Rate <Divina Cabral DO - Last Filed: 08/27/22 20:10> Orders Ordered: Discontinued Medications Amlodipine Besylate (Amlodipine 5 Mg Tablet) 5 mg PO NOW ONE Stop: 08/24/22 19:54 Last Admin: 08/24/22 21:58 Dose: 5 mg Documented By: DUANE Amlodipine Besylate (Amlodipine 5 Mg Tablet) 5 mg PO DAILY [facility] Last Admin: 08/26/22 08:13 Dose: 5 mg Documented By: Admin: 08/25/22 10:58 Dose: 5 mg Documented By: RB Amlodipine Besylate (Amlodipine 5 Mg Tablet) 10 mg PO NOW ONE Stop: 08/26/22 17:00 Last Admin: 08/26/22 17:03 Dose: 10 mg Documented By: RB Amlodipine Besylate (Amlodipine 5 Mg Tablet) 10 mg PO DAILY [facility] Last Admin: 08/27/22 08:28 Dose: 10 mg Documented By: GUILLERMO Aspirin (Aspirin 81 Mg Chew Tab) 324 mg PO NOW ONE Stop: 08/24/22 15:15 Last Admin: 08/24/22 15:20 Dose: 324 mg Documented By: DUANE Azithromycin (Azithromycin 250 Mg Tablet) 500 mg PO NOW ONE Stop: 08/24/22 17:32 Last Admin: 08/24/22 18:16 Dose: 500 mg Documented By: EUSEBIA Carvedilol (Carvedilol 3.125 Mg Tablet) 6.25 mg PO BID [facility] Last Admin: 08/27/22 08:28 Dose: 6.25 mg Documented By: Admin: 08/26/22 20:53 Dose: 6.25 mg Documented By: VIJAYA Diazepam (Diazepam 5 Mg Tablet) 5 mg PO NOW ONE Stop: 08/24/22 21:56 Last Admin: 08/24/22 22:01 Dose: 5 mg Documented By: DUANE Diazepam (Diazepam 5 Mg Tablet) 5 mg PO NOW ONE Stop: 08/26/22 01:26 Last Admin: 08/26/22 01:32 Dose: 5 mg Documented By: ROLANDO Diazepam (Diazepam 5 Mg Tablet) 5 mg PO BEDTIME [facility] Last Admin: 08/26/22 23:44 Dose: 5 mg Documented By: VIJAYA POTASSIUM CHLORIDE IN WATER (Potassium Cl 10 Meq/100 Ml Leigh) 10 meq in 100 mls @ 100 mls/hr IV Q1H ARACELI Stop: 08/24/22 18:59 Last Infusion: 08/24/22 20:16 Dose: 0 mls/hr Documented By: Admin: 08/24/22 19:05 Dose: 100 mls/hr Documented By: Infusion: 08/24/22 19:04 Dose: 0 mls/hr Documented By: Admin: 08/24/22 17:20 Dose: 100 mls/hr Documented By: Infusion: 08/24/22 17:18 Dose: 0 mls/hr Documented By: Admin: 08/24/22 16:16 Dose: 100 mls/hr Documented By: Infusion: 08/24/22 16:07 Dose: 100 mls/hr Documented By: Admin: 08/24/22 15:07 Dose: 100 mls/hr Documented By: SB Sodium Chloride (Normal Saline 0.9%) 1,000 mls @ 100 mls/hr IV CONT ARACELI Last Infusion: 08/24/22 22:17 Dose: 0 mls/hr Documented By: Admin: 08/24/22 15:09 Dose: 100 mls/hr Documented By: SB Ceftriaxone Sodium 2,000 mg/ (Sodium Chloride) 100 mls @ 200 mls/hr IV NOW ONE Stop: 08/24/22 17:32 Last Infusion: 08/24/22 19:04 Dose: 0 mls/hr Documented By: Admin: 08/24/22 18:16 Dose: 200 mls/hr Documented By: RB Cefepime HCl 2 gm/ Sodium (Chloride) 100 mls @ 200 mls/hr IV NOW ONE Stop: 08/24/22 19:54 Last Infusion: 08/24/22 21:50 Dose: 0 mls/hr Documented By: Admin: 08/24/22 20:18 Dose: 200 mls/hr Documented By: SB Cefepime HCl 2 gm/ Sodium (Chloride) 100 mls @ 200 mls/hr IV Q8HR ARACELI Last Admin: 08/25/22 22:18 Dose: Not Given Documented By: Infusion: 08/25/22 21:54 Dose: 0 mls/hr Documented By: Admin: 08/25/22 21:23 Dose: 200 mls/hr Documented By: HNG Vancomycin HCl (Vancomycin) 1,000 mg in 200 mls @ 200 mls/hr IV NOW ONE Stop: 08/25/22 09:59 Last Infusion: 08/25/22 10:24 Dose: 0 mls/hr Documented By: Admin: 08/25/22 09:24 Dose: 200 mls/hr Documented By: RB POTASSIUM CHLORIDE IN WATER (Potassium Cl 10 Meq/100 Ml Leigh) 10 meq in 100 mls @ 100 mls/hr IV Q1H ARACELI Stop: 08/25/22 12:14 Last Infusion: 08/25/22 13:31 Dose: 0 mls/hr Documented By: Admin: 08/25/22 12:23 Dose: 100 mls/hr Documented By: Infusion: 08/25/22 12:22 Dose: 100 mls/hr Documented By: Admin: 08/25/22 11:22 Dose: 100 mls/hr Documented By: Infusion: 08/25/22 11:22 Dose: 100 mls/hr Documented By: Admin: 08/25/22 10:21 Dose: 100 mls/hr Documented By: Infusion: 08/25/22 10:20 Dose: 0 mls/hr Documented By: Admin: 08/25/22 09:14 Dose: 100 mls/hr Documented By: EUSEBIA Sodium Chloride (Normal Saline 0.9%) 1,000 mls @ 125 mls/hr IV CONT ARACELI Last Infusion: 08/25/22 17:41 Dose: 0 mls/hr Documented By: Admin: 08/25/22 09:19 Dose: 125 mls/hr Documented By: RB Vancomycin HCl/Dextrose (Vancomycin) 1,500 mg in 300 mls @ 200 mls/hr IV Q12H ARACELI Last Infusion: 08/27/22 09:34 Dose: 0 mls/hr Documented By: Admin: 08/27/22 07:51 Dose: 200 mls/hr Documented By: Infusion: 08/26/22 19:43 Dose: 0 mls/hr Documented By: Admin: 08/26/22 17:58 Dose: 200 mls/hr Documented By: Infusion: 08/26/22 10:00 Dose: 0 mls/hr Documented By: Admin: 08/26/22 08:12 Dose: 200 mls/hr Documented By: Infusion: 08/25/22 21:01 Dose: 0 mls/hr Documented By: Admin: 08/25/22 19:24 Dose: 200 mls/hr Documented By: ROLANDO POTASSIUM CHLORIDE IN WATER (Potassium Cl 10 Meq/100 Ml Leigh) 10 meq in 100 mls @ 100 mls/hr IV Q1H ARACELI Stop: 08/26/22 01:44 Last Infusion: 08/26/22 04:01 Dose: 0 mls/hr Documented By: Admin: 08/26/22 02:49 Dose: 100 mls/hr Documented By: Infusion: 08/26/22 02:49 Dose: 0 mls/hr Documented By: Admin: 08/26/22 01:15 Dose: 100 mls/hr Documented By: Infusion: 08/26/22 01:15 Dose: 0 mls/hr Documented By: Admin: 08/25/22 23:36 Dose: 100 mls/hr Documented By: Infusion: 08/25/22 23:36 Dose: 0 mls/hr Documented By: Admin: 08/25/22 22:11 Dose: 100 mls/hr Documented By: Infusion: 08/25/22 22:11 Dose: 0 mls/hr Documented By: Admin: 08/25/22 20:51 Dose: 100 mls/hr Documented By: Infusion: 08/25/22 20:51 Dose: 0 mls/hr Documented By: Admin: 08/25/22 19:42 Dose: 100 mls/hr Documented By: ELLENG Cefepime HCl 2 gm/ Sodium (Chloride) 100 mls @ 200 mls/hr IV Q8HR ARACELI Last Infusion: 08/27/22 07:50 Dose: 0 mls/hr Documented By: Admin: 08/27/22 06:09 Dose: 200 mls/hr Documented By: Infusion: 08/26/22 21:49 Dose: 0 mls/hr Documented By: Admin: 08/26/22 20:45 Dose: 200 mls/hr Documented By: Infusion: 08/26/22 14:29 Dose: 0 mls/hr Documented By: Admin: 08/26/22 13:49 Dose: 200 mls/hr Documented By: Infusion: 08/26/22 07:58 Dose: 0 mls/hr Documented By: Admin: 08/26/22 06:58 Dose: 200 mls/hr Documented By: ROLANDO POTASSIUM CHLORIDE IN WATER (Potassium Cl 10 Meq/100 Ml Leigh) 10 meq in 100 mls @ 100 mls/hr IV Q1H ARACELI Stop: 08/26/22 22:44 Last Infusion: 08/27/22 00:19 Dose: 0 mls/hr Documented By: Admin: 08/26/22 22:55 Dose: 100 mls/hr Documented By: Infusion: 08/26/22 22:54 Dose: 0 mls/hr Documented By: Admin: 08/26/22 21:49 Dose: 100 mls/hr Documented By: Infusion: 08/26/22 21:44 Dose: 0 mls/hr Documented By: Admin: 08/26/22 20:42 Dose: 100 mls/hr Documented By: Infusion: 08/26/22 19:44 Dose: 100 mls/hr Documented By: Admin: 08/26/22 18:44 Dose: 100 mls/hr Documented By: EUSEBIA Sodium Chloride (Normal Saline 0.9%) 1,000 mls @ 125 mls/hr IV NOW ONE Stop: 08/27/22 02:34 Last Infusion: 08/27/22 01:46 Dose: 0 mls/hr Documented By: Admin: 08/26/22 18:43 Dose: 125 mls/hr Documented By: EUSEBIA Losartan Potassium (Losartan 50 Mg Tablet) 100 mg PO NOW ONE Stop: 08/24/22 19:54 Last Admin: 08/24/22 21:58 Dose: 100 mg Documented By: DUANE Losartan Potassium (Losartan 50 Mg Tablet) 100 mg PO DAILY [facility] Last Admin: 08/27/22 08:29 Dose: 100 mg Documented By: Admin: 08/26/22 09:09 Dose: 100 mg Documented By: Admin: 08/25/22 10:58 Dose: 100 mg Documented By: EUSEBIA Potassium Chloride (Potassium Chloride 20 Meq Tab) 40 meq PO NOW ONE Stop: 08/24/22 15:04 Last Admin: 08/24/22 15:20 Dose: 40 meq Documented By: DUANE Potassium Chloride (Potassium Chloride 20 Meq Tab) 40 meq PO NOW ONE Stop: 08/25/22 19:33 Last Admin: 08/25/22 19:41 Dose: 40 meq Documented By: ROLANDO Potassium Chloride (Potassium Chloride 20 Meq Tab) 40 meq PO DAILYCC [facility] Last Admin: 08/27/22 08:28 Dose: 40 meq Documented By: Admin: 08/26/22 08:13 Dose: 40 meq Documented By: RB Potassium Chloride (Potassium Chloride 20 Meq Tab) 40 meq PO NOW ONE Stop: 08/26/22 18:33 Last Admin: 08/26/22 18:43 Dose: 40 meq Documented By: RB Prednisone (Prednisone 20 Mg Tablet) 60 mg PO NOW ONE Stop: 08/24/22 17:08 Last Admin: 08/24/22 17:20 Dose: 60 mg Documented By: DUANE Vancomycin HCl (Vancomycin Per Pharmacy) 1 request MISC NOW ONE Stop: 08/25/22 18:23 Last Admin: 08/25/22 18:41 Dose: Not Given Documented By: RB Vancomycin HCl (Vancomycin Trough) 1 request MISC 0600 ONE Stop: 08/27/22 06:01 Last Admin: 08/27/22 07:07 Dose: Not Given Documented By: ELLENG Vancomycin HCl (Vancomycin Peak) 1 request [facility] 0900 ONE Stop: 08/27/22 09:01 Last Admin: 08/27/22 10:52 Dose: 1 request Documented By: GUILLERMO Vital Signs Vital signs: Vital Signs - 8 hr 08/27/22 03:30 08/27/22 04:00 08/27/22 04:01 Pulse Rate 63 62 Respiratory Rate 18 16 Blood Pressure 118/69 Pulse Oximetry 94 94 Oxygen Delivery Method Oxygen Flow Rate 08/27/22 04:01 08/27/22 07:57 08/27/22 07:58 Pulse Rate 63 79 Respiratory Rate 17 21 Blood Pressure 167/88 H Pulse Oximetry 94 95 Oxygen Delivery Method Nasal Cannula Oxygen Flow Rate 2 08/27/22 07:58 08/27/22 08:00 08/27/22 08:00 Pulse Rate 76 77 Respiratory Rate 21 19 Blood Pressure 168/93 H Pulse Oximetry 95 95 Oxygen Delivery Method Oxygen Flow Rate 08/27/22 08:30 08/27/22 08:30 08/27/22 09:00 Pulse Rate 88 Respiratory Rate 21 Blood Pressure 159/86 H 162/80 H Pulse Oximetry 95 Oxygen Delivery Method Nasal Cannula Oxygen Flow Rate 1 08/27/22 09:00 08/27/22 09:30 08/27/22 09:30 Pulse Rate 83 84 Respiratory Rate 18 21 Blood Pressure 150/84 H Pulse Oximetry 96 94 Oxygen Delivery Method Room Air Oxygen Flow Rate 08/27/22 09:59 08/27/22 10:00 08/27/22 10:00 Pulse Rate 74 77 Respiratory Rate 19 19 Blood Pressure 145/81 H Pulse Oximetry 90 L 90 L Oxygen Delivery Method Oxygen Flow Rate 08/27/22 10:30 Pulse Rate 79 Respiratory Rate 16 Blood Pressure Pulse Oximetry 92 Oxygen Delivery Method Oxygen Flow Rate MDM - URI/Sore Throat <Miranda Esparza PA-C - Last Filed: 08/24/22 20:05> Lab Data 08/27/22 06:15 08/27/22 06:15 Labs: Lab Results 08/24/22 08/24/22 08/24/22 Range/Units 12:14 14:27 14:27 WBC 17.7 H (4.5-11.0) X10^3/uL RBC 5.73 (4.5-5.9) X10^6/uL Hgb 17.2 (13.5-17.5) g/dL Hct 51.3 (41-53) % MCV 89.5 (80-100) fL MCH 30.0 (26-34) PG MCHC 33.6 (30-36) % RDW 14.3 (11.6-14.8) % Plt Count 220 (150-400) X10^3/uL Neut % (Auto) 87.1 H (50-75) % Lymph % (Auto) 6.1 L (25-40) % [place] % (Auto) 6.1 (3-14) % Eos % (Auto) 0.2 L (2-4) % Baso % (Auto) 0.5 (0-2) % Neut # (Auto) 05063 H (2466-0803) /uL Lymph # (Auto) 1100 (8847-1242) /uL [place] # (Auto) 1100 H (0-900) /uL Eos # (Auto) 0 (0-450) /uL Baso # (Auto) 100 (0-100) /uL ABG pH (7.35-7.45) ABG pCO2 (35-45) mmHg ABG pO2 (80-100) mmHg ABG HCO3 (23-27) mmol/L ABG Total CO2 (23-27) mmol/L ABG O2 Saturation (95-100) % ABG Base Excess (-2-3) mmol/L FiO2 Sodium 139 (137-145) mmol/L Potassium 2.1 L* (3.4-5.1) mmol/L Chloride 90 L (98-107) mmol/L Carbon Dioxide 44 H* (22-32) mmol/L BUN 17 (9-20) mg/dL Creatinine 0.72 (0.66-1.25) mg/dL Estimated GFR > 60 (>60) mL/min BUN/Creatinine Ratio 23.6 H (6-22) Glucose 141 H (80-110) mg/dL Lactate (0.7-2.1) mmol/L Calcium 8.9 (8.4-10.2) mg/dL Phosphorus (2.3-3.7) mg/dL Magnesium (1.6-2.3) mg/dL Total Bilirubin 0.9 (0.2-1.3) mg/dL AST 63 H (17-59) IU/L ALT 169 H (<50) IU/L Alkaline Phosphatase 98 (38-126) U/L Total Creatine Kinase 31 L (55-170) U/L CK-MB (CK-2) TNP CK-MB (CK-2) Rel Index TNP Troponin I 0.046 H (0.01-0.034) ng/mL NT-Pro-B Natriuret Pep 401 H (<125) pg/mL Total Protein 7.2 (6.3-8.2) g/dL Albumin 3.6 (3.5-5.0) g/dL Globulin 3.6 (1.7-4.1) g/dL Albumin/Globulin Ratio 1.0 (1.0-2.8) Lipase 173 (23-300) U/L Procalcitonin (<0.5) ng/mL Nasal Screen MRSA (PCR) (Not Detect) Vancomycin Peak (20-40) ug/mL Vancomycin Trough (10-20) ug/mL SARS-CoV-2 (PCR) Negative (Negative) Influenza A (RT-PCR) Flu a negative (NEGATIVE) Influenza B (RT-PCR) Flu b negative (NEGATIVE) RSV (PCR) Negative (Negative) 08/24/22 08/24/22 08/24/22 Range/Units 14:27 16:27 16:41 WBC (4.5-11.0) X10^3/uL RBC (4.5-5.9) X10^6/uL Hgb (13.5-17.5) g/dL Hct (41-53) % MCV (80-100) fL MCH (26-34) PG MCHC (30-36) % RDW (11.6-14.8) % Plt Count (150-400) X10^3/uL Neut % (Auto) (50-75) % Lymph % (Auto) (25-40) % [place] % (Auto) (3-14) % Eos % (Auto) (2-4) % Baso % (Auto) (0-2) % Neut # (Auto) (0529-0899) /uL Lymph # (Auto) (7165-6649) /uL [place] # (Auto) (0-900) /uL Eos # (Auto) (0-450) /uL Baso # (Auto) (0-100) /uL ABG pH 7.53 H (7.35-7.45) ABG pCO2 52.0 H (35-45) mmHg ABG pO2 54 L (80-100) mmHg ABG HCO3 44 H (23-27) mmol/L ABG Total CO2 45 H (23-27) mmol/L ABG O2 Saturation 90 L (95-100) % ABG Base Excess 21.0 H (-2-3) mmol/L FiO2 24 Sodium (137-145) mmol/L Potassium (3.4-5.1) mmol/L Chloride (98-107) mmol/L Carbon Dioxide (22-32) mmol/L BUN (9-20) mg/dL Creatinine (0.66-1.25) mg/dL Estimated GFR (>60) mL/min BUN/Creatinine Ratio (6-22) Glucose (80-110) mg/dL Lactate (0.7-2.1) mmol/L Calcium (8.4-10.2) mg/dL Phosphorus (2.3-3.7) mg/dL Magnesium 2.1 (1.6-2.3) mg/dL Total Bilirubin (0.2-1.3) mg/dL AST (17-59) IU/L ALT (<50) IU/L Alkaline Phosphatase (38-126) U/L Total Creatine Kinase 29 L (55-170) U/L CK-MB (CK-2) TNP CK-MB (CK-2) Rel Index TNP Troponin I 0.053 H (0.01-0.034) ng/mL NT-Pro-B Natriuret Pep (<125) pg/mL Total Protein (6.3-8.2) g/dL Albumin (3.5-5.0) g/dL Globulin (1.7-4.1) g/dL Albumin/Globulin Ratio (1.0-2.8) Lipase (23-300) U/L Procalcitonin (<0.5) ng/mL Nasal Screen MRSA (PCR) (Not Detect) Vancomycin Peak (20-40) ug/mL Vancomycin Trough (10-20) ug/mL SARS-CoV-2 (PCR) (Negative) Influenza A (RT-PCR) (NEGATIVE) Influenza B (RT-PCR) (NEGATIVE) RSV (PCR) (Negative) 08/24/22 08/24/22 08/24/22 Range/Units 18:03 18:03 19:55 WBC (4.5-11.0) X10^3/uL RBC (4.5-5.9) X10^6/uL Hgb (13.5-17.5) g/dL Hct (41-53) % MCV (80-100) fL MCH (26-34) PG MCHC (30-36) % RDW (11.6-14.8) % Plt Count (150-400) X10^3/uL Neut % (Auto) (50-75) % Lymph % (Auto) (25-40) % [place] % (Auto) (3-14) % Eos % (Auto) (2-4) % Baso % (Auto) (0-2) % Neut # (Auto) (2674-3220) /uL Lymph # (Auto) (3377-0724) /uL [place] # (Auto) (0-900) /uL Eos # (Auto) (0-450) /uL Baso # (Auto) (0-100) /uL ABG pH (7.35-7.45) ABG pCO2 (35-45) mmHg ABG pO2 (80-100) mmHg ABG HCO3 (23-27) mmol/L ABG Total CO2 (23-27) mmol/L ABG O2 Saturation (95-100) % ABG Base Excess (-2-3) mmol/L FiO2 Sodium 139 (137-145) mmol/L Potassium 2.7 L* (3.4-5.1) mmol/L Chloride 90 L (98-107) mmol/L Carbon Dioxide 40 H* (22-32) mmol/L BUN 16 (9-20) mg/dL Creatinine 0.67 (0.66-1.25) mg/dL Estimated GFR > 60 (>60) mL/min BUN/Creatinine Ratio 23.9 H (6-22) Glucose 147 H (80-110) mg/dL Lactate (0.7-2.1) mmol/L Calcium 8.9 (8.4-10.2) mg/dL Phosphorus 2.4 (2.3-3.7) mg/dL Magnesium 2.1 (1.6-2.3) mg/dL Total Bilirubin 1.0 (0.2-1.3) mg/dL AST 67 H (17-59) IU/L ALT 166 H (<50) IU/L Alkaline Phosphatase 105 (38-126) U/L Total Creatine Kinase (55-170) U/L CK-MB (CK-2) CK-MB (CK-2) Rel Index Troponin I 0.054 H (0.01-0.034) ng/mL NT-Pro-B Natriuret Pep (<125) pg/mL Total Protein 7.4 (6.3-8.2) g/dL Albumin 3.7 (3.5-5.0) g/dL Globulin 3.7 (1.7-4.1) g/dL Albumin/Globulin Ratio 1.0 (1.0-2.8) Lipase (23-300) U/L Procalcitonin 0.43 (<0.5) ng/mL Nasal Screen MRSA (PCR) (Not Detect) Vancomycin Peak (20-40) ug/mL Vancomycin Trough (10-20) ug/mL SARS-CoV-2 (PCR) (Negative) Influenza A (RT-PCR) (NEGATIVE) Influenza B (RT-PCR) (NEGATIVE) RSV (PCR) (Negative) 08/24/22 08/25/22 08/25/22 Range/Units 19:55 07:30 07:30 WBC 14.6 H (4.5-11.0) X10^3/uL RBC 5.53 (4.5-5.9) X10^6/uL Hgb 16.7 (13.5-17.5) g/dL Hct 49.6 (41-53) % MCV 89.6 (80-100) fL MCH 30.2 (26-34) PG MCHC 33.7 (30-36) % RDW 14.3 (11.6-14.8) % Plt Count 216 (150-400) X10^3/uL Neut % (Auto) 84.7 H (50-75) % Lymph % (Auto) 9.8 L (25-40) % [place] % (Auto) 5.1 (3-14) % Eos % (Auto) 0.0 L (2-4) % Baso % (Auto) 0.4 (0-2) % Neut # (Auto) 32795 H (9716-3069) /uL Lymph # (Auto) 1400 (8276-5332) /uL [place] # (Auto) 700 (0-900) /uL Eos # (Auto) 0 (0-450) /uL Baso # (Auto) 100 (0-100) /uL ABG pH (7.35-7.45) ABG pCO2 (35-45) mmHg ABG pO2 (80-100) mmHg ABG HCO3 (23-27) mmol/L ABG Total CO2 (23-27) mmol/L ABG O2 Saturation (95-100) % ABG Base Excess (-2-3) mmol/L FiO2 Sodium 140 (137-145) mmol/L Potassium 2.6 L* (3.4-5.1) mmol/L Chloride 93 L (98-107) mmol/L Carbon Dioxide 43 H* (22-32) mmol/L BUN 20 (9-20) mg/dL Creatinine 0.67 (0.66-1.25) mg/dL Estimated GFR > 60 (>60) mL/min BUN/Creatinine Ratio 29.9 H (6-22) Glucose 129 H (80-110) mg/dL Lactate 1.2 (0.7-2.1) mmol/L Calcium 8.7 (8.4-10.2) mg/dL Phosphorus (2.3-3.7) mg/dL Magnesium (1.6-2.3) mg/dL Total Bilirubin 0.9 (0.2-1.3) mg/dL AST 51 (17-59) IU/L ALT 142 H (<50) IU/L Alkaline Phosphatase 87 (38-126) U/L Total Creatine Kinase (55-170) U/L CK-MB (CK-2) CK-MB (CK-2) Rel Index Troponin I (0.01-0.034) ng/mL NT-Pro-B Natriuret Pep (<125) pg/mL Total Protein 7.1 (6.3-8.2) g/dL Albumin 3.6 (3.5-5.0) g/dL Globulin 3.5 (1.7-4.1) g/dL Albumin/Globulin Ratio 1.0 (1.0-2.8) Lipase (23-300) U/L Procalcitonin (<0.5) ng/mL Nasal Screen MRSA (PCR) (Not Detect) Vancomycin Peak (20-40) ug/mL Vancomycin Trough (10-20) ug/mL SARS-CoV-2 (PCR) (Negative) Influenza A (RT-PCR) (NEGATIVE) Influenza B (RT-PCR) (NEGATIVE) RSV (PCR) (Negative) 08/25/22 08/25/22 08/26/22 Range/Units 18:40 19:50 03:55 WBC 19.6 H (4.5-11.0) X10^3/uL RBC 5.23 (4.5-5.9) X10^6/uL Hgb 15.7 (13.5-17.5) g/dL Hct 47.1 (41-53) % MCV 90.1 (80-100) fL MCH 30.1 (26-34) PG MCHC 33.4 (30-36) % RDW 14.2 (11.6-14.8) % Plt Count 222 (150-400) X10^3/uL Neut % (Auto) 88.3 H (50-75) % Lymph % (Auto) 6.4 L (25-40) % [place] % (Auto) 4.9 (3-14) % Eos % (Auto) 0.0 L (2-4) % Baso % (Auto) 0.4 (0-2) % Neut # (Auto) 33607 H (2813-1358) /uL Lymph # (Auto) 1300 (3392-1886) /uL [place] # (Auto) 1000 H (0-900) /uL Eos # (Auto) 0 (0-450) /uL Baso # (Auto) 100 (0-100) /uL ABG pH (7.35-7.45) ABG pCO2 (35-45) mmHg ABG pO2 (80-100) mmHg ABG HCO3 (23-27) mmol/L ABG Total CO2 (23-27) mmol/L ABG O2 Saturation (95-100) % ABG Base Excess (-2-3) mmol/L FiO2 Sodium 139 (137-145) mmol/L Potassium 2.3 L* (3.4-5.1) mmol/L Chloride 95 L (98-107) mmol/L Carbon Dioxide 37 H (22-32) mmol/L BUN 22 H (9-20) mg/dL Creatinine 0.69 (0.66-1.25) mg/dL Estimated GFR > 60 (>60) mL/min BUN/Creatinine Ratio 31.9 H (6-22) Glucose 163 H (80-110) mg/dL Lactate (0.7-2.1) mmol/L Calcium 8.5 (8.4-10.2) mg/dL Phosphorus (2.3-3.7) mg/dL Magnesium 2.0 (1.6-2.3) mg/dL Total Bilirubin (0.2-1.3) mg/dL AST (17-59) IU/L ALT (<50) IU/L Alkaline Phosphatase (38-126) U/L Total Creatine Kinase (55-170) U/L CK-MB (CK-2) CK-MB (CK-2) Rel Index Troponin I (0.01-0.034) ng/mL NT-Pro-B Natriuret Pep (<125) pg/mL Total Protein (6.3-8.2) g/dL Albumin (3.5-5.0) g/dL Globulin (1.7-4.1) g/dL Albumin/Globulin Ratio (1.0-2.8) Lipase (23-300) U/L Procalcitonin (<0.5) ng/mL Nasal Screen MRSA (PCR) Not detected (Not Detect) Vancomycin Peak (20-40) ug/mL Vancomycin Trough (10-20) ug/mL SARS-CoV-2 (PCR) (Negative) Influenza A (RT-PCR) (NEGATIVE) Influenza B (RT-PCR) (NEGATIVE) RSV (PCR) (Negative) 08/26/22 08/26/22 08/26/22 Range/Units 03:55 03:55 17:38 WBC (4.5-11.0) X10^3/uL RBC (4.5-5.9) X10^6/uL Hgb (13.5-17.5) g/dL Hct (41-53) % MCV (80-100) fL MCH (26-34) PG MCHC (30-36) % RDW (11.6-14.8) % Plt Count (150-400) X10^3/uL Neut % (Auto) (50-75) % Lymph % (Auto) (25-40) % [place] % (Auto) (3-14) % Eos % (Auto) (2-4) % Baso % (Auto) (0-2) % Neut # (Auto) (9815-1784) /uL Lymph # (Auto) (2208-8153) /uL [place] # (Auto) (0-900) /uL Eos # (Auto) (0-450) /uL Baso # (Auto) (0-100) /uL ABG pH (7.35-7.45) ABG pCO2 (35-45) mmHg ABG pO2 (80-100) mmHg ABG HCO3 (23-27) mmol/L ABG Total CO2 (23-27) mmol/L ABG O2 Saturation (95-100) % ABG Base Excess (-2-3) mmol/L FiO2 Sodium 139 141 (137-145) mmol/L Potassium 3.2 L 2.6 L* (3.4-5.1) mmol/L Chloride 97 L 96 L (98-107) mmol/L Carbon Dioxide 39 H 39 H (22-32) mmol/L BUN 18 22 H (9-20) mg/dL Creatinine 0.60 L 0.69 (0.66-1.25) mg/dL Estimated GFR > 60 > 60 (>60) mL/min BUN/Creatinine Ratio 30.0 H 31.9 H (6-22) Glucose 151 H 132 H (80-110) mg/dL Lactate (0.7-2.1) mmol/L Calcium 8.6 8.7 (8.4-10.2) mg/dL Phosphorus (2.3-3.7) mg/dL Magnesium (1.6-2.3) mg/dL Total Bilirubin (0.2-1.3) mg/dL AST (17-59) IU/L ALT (<50) IU/L Alkaline Phosphatase (38-126) U/L Total Creatine Kinase (55-170) U/L CK-MB (CK-2) CK-MB (CK-2) Rel Index Troponin I (0.01-0.034) ng/mL NT-Pro-B Natriuret Pep (<125) pg/mL Total Protein (6.3-8.2) g/dL Albumin (3.5-5.0) g/dL Globulin (1.7-4.1) g/dL Albumin/Globulin Ratio (1.0-2.8) Lipase (23-300) U/L Procalcitonin 0.39 (<0.5) ng/mL Nasal Screen MRSA (PCR) (Not Detect) Vancomycin Peak (20-40) ug/mL Vancomycin Trough (10-20) ug/mL SARS-CoV-2 (PCR) (Negative) Influenza A (RT-PCR) (NEGATIVE) Influenza B (RT-PCR) (NEGATIVE) RSV (PCR) (Negative) 08/27/22 08/27/22 08/27/22 Range/Units 06:15 06:15 06:15 WBC 13.9 H (4.5-11.0) X10^3/uL RBC 4.79 (4.5-5.9) X10^6/uL Hgb 14.5 (13.5-17.5) g/dL Hct 42.8 (41-53) % MCV 89.4 (80-100) fL MCH 30.3 (26-34) PG MCHC 33.9 (30-36) % RDW 13.9 (11.6-14.8) % Plt Count 189 (150-400) X10^3/uL Neut % (Auto) 87.8 H (50-75) % Lymph % (Auto) 7.5 L (25-40) % [place] % (Auto) 4.5 (3-14) % Eos % (Auto) 0.0 L (2-4) % Baso % (Auto) 0.2 (0-2) % Neut # (Auto) 56361 H (0859-6211) /uL Lymph # (Auto) 1000 L (0303-4995) /uL [place] # (Auto) 600 (0-900) /uL Eos # (Auto) 0 (0-450) /uL Baso # (Auto) 0 (0-100) /uL ABG pH (7.35-7.45) ABG pCO2 (35-45) mmHg ABG pO2 (80-100) mmHg ABG HCO3 (23-27) mmol/L ABG Total CO2 (23-27) mmol/L ABG O2 Saturation (95-100) % ABG Base Excess (-2-3) mmol/L FiO2 Sodium 140 (137-145) mmol/L Potassium 3.2 L (3.4-5.1) mmol/L Chloride 101 (98-107) mmol/L Carbon Dioxide 38 H (22-32) mmol/L BUN 23 H (9-20) mg/dL Creatinine 0.66 (0.66-1.25) mg/dL Estimated GFR > 60 (>60) mL/min BUN/Creatinine Ratio 34.8 H (6-22) Glucose 135 H (80-110) mg/dL Lactate (0.7-2.1) mmol/L Calcium 8.3 L (8.4-10.2) mg/dL Phosphorus (2.3-3.7) mg/dL Magnesium (1.6-2.3) mg/dL Total Bilirubin (0.2-1.3) mg/dL AST (17-59) IU/L ALT (<50) IU/L Alkaline Phosphatase (38-126) U/L Total Creatine Kinase (55-170) U/L CK-MB (CK-2) CK-MB (CK-2) Rel Index Troponin I (0.01-0.034) ng/mL NT-Pro-B Natriuret Pep (<125) pg/mL Total Protein (6.3-8.2) g/dL Albumin (3.5-5.0) g/dL Globulin (1.7-4.1) g/dL Albumin/Globulin Ratio (1.0-2.8) Lipase (23-300) U/L Procalcitonin (<0.5) ng/mL Nasal Screen MRSA (PCR) (Not Detect) Vancomycin Peak (20-40) ug/mL Vancomycin Trough 9.4 L (10-20) ug/mL SARS-CoV-2 (PCR) (Negative) Influenza A (RT-PCR) (NEGATIVE) Influenza B (RT-PCR) (NEGATIVE) RSV (PCR) (Negative) 08/27/22 Range/Units 10:35 WBC (4.5-11.0) X10^3/uL RBC (4.5-5.9) X10^6/uL Hgb (13.5-17.5) g/dL Hct (41-53) % MCV (80-100) fL MCH (26-34) PG MCHC (30-36) % RDW (11.6-14.8) % Plt Count (150-400) X10^3/uL Neut % (Auto) (50-75) % Lymph % (Auto) (25-40) % [place] % (Auto) (3-14) % Eos % (Auto) (2-4) % Baso % (Auto) (0-2) % Neut # (Auto) (6817-6622) /uL Lymph # (Auto) (9300-8146) /uL [place] # (Auto) (0-900) /uL Eos # (Auto) (0-450) /uL Baso # (Auto) (0-100) /uL ABG pH (7.35-7.45) ABG pCO2 (35-45) mmHg ABG pO2 (80-100) mmHg ABG HCO3 (23-27) mmol/L ABG Total CO2 (23-27) mmol/L ABG O2 Saturation (95-100) % ABG Base Excess (-2-3) mmol/L FiO2 Sodium (137-145) mmol/L Potassium (3.4-5.1) mmol/L Chloride (98-107) mmol/L Carbon Dioxide (22-32) mmol/L BUN (9-20) mg/dL Creatinine (0.66-1.25) mg/dL Estimated GFR (>60) mL/min BUN/Creatinine Ratio (6-22) Glucose (80-110) mg/dL Lactate (0.7-2.1) mmol/L Calcium (8.4-10.2) mg/dL Phosphorus (2.3-3.7) mg/dL Magnesium (1.6-2.3) mg/dL Total Bilirubin (0.2-1.3) mg/dL AST (17-59) IU/L ALT (<50) IU/L Alkaline Phosphatase (38-126) U/L Total Creatine Kinase (55-170) U/L CK-MB (CK-2) CK-MB (CK-2) Rel Index Troponin I (0.01-0.034) ng/mL NT-Pro-B Natriuret Pep (<125) pg/mL Total Protein (6.3-8.2) g/dL Albumin (3.5-5.0) g/dL Globulin (1.7-4.1) g/dL Albumin/Globulin Ratio (1.0-2.8) Lipase (23-300) U/L Procalcitonin (<0.5) ng/mL Nasal Screen MRSA (PCR) (Not Detect) Vancomycin Peak 24.1 (20-40) ug/mL Vancomycin Trough (10-20) ug/mL SARS-CoV-2 (PCR) (Negative) Influenza A (RT-PCR) (NEGATIVE) Influenza B (RT-PCR) (NEGATIVE) RSV (PCR) (Negative) Urine Dip Bedside Urine Glucose Negative Bedside Urine Bilirubin - Negative Bedside Urine Ketone - Negative Urine Specific [place] 1.015 Bedside Urine Occult Blood - Negative Bedside Urine pH 7.5 Bedside Urine Protein - Negative Bedside Urine Urobilinogen - Negative Bedside Urine Nitrite - Negative Bedside Urine Leukocytes - Negative Esterase MDM Narrative Medical decision making narrative: 71-year-old male with past medical history hypertension presents to the ED with 2 weeks of cough, sputum, chest tightness. Concern for URI versus ACS versus pneumonia versus congestive heart failure versus hypertension versus other. Will obtain EKG, chest x-ray, labs, troponin, BNP. Will reassess. EKG without acute ST-T changes. Chest x-ray shows chronic interstitial lung disease versus viral pneumonitis. Potassium low at 2.1. CO2 elevated to 44. Troponin elevated to 0.046. WBC elevated to 17. Urine without UTI. Cardiology was consulted regarding the troponin rise. Dr. Preston suspects that the troponin rise is more related to patient's pulmonary issues, which could be possibly COPD versus ILD versus pneumonitis vs other. He recommends getting an echo, stress test, serial troponins, no strong indication for heparin. Repeat troponin was 0.053. No EKG changes noted on repeat EKG. Potassium was repleted with 40 p.o. and 40 IV, IV fluids. Repeat potassium was 2.7. ABG was obtained which shows metabolic alkalosis. Patient was given aspirin 324. Patient's SpO2 hovered between 90 and 92, sometimes dipping to 88. A CT PE was obtained to rule out PE. The CT showed no pulmonary embolism, however shows possible postobstructive pneumonitis versus neoplasm. Patient also treated like a COPD exacerbation with prednisone, azithromycin, Rocephin. No albuterol at this time, given the hypokalemia. Patient was discussed with Dr. Jessica Simon, and hospitalist Dr. Storey and the consensus was to find a outside facility to transfer the patient to that has pulmonology. Patient's antibiotic coverage broadened with vancomycin and Zosyn. Patient signed out to Dr. Tracy Simon. <Jessica Simon MD - Last Filed: 09/04/22 15:45> Lab Data Labs: Lab Results 08/24/22 08/24/22 08/24/22 Range/Units 12:14 14:27 14:27 WBC 17.7 H (4.5-11.0) X10^3/uL RBC 5.73 (4.5-5.9) X10^6/uL Hgb 17.2 (13.5-17.5) g/dL Hct 51.3 (41-53) % MCV 89.5 (80-100) fL MCH 30.0 (26-34) PG MCHC 33.6 (30-36) % RDW 14.3 (11.6-14.8) % Plt Count 220 (150-400) X10^3/uL Neut % (Auto) 87.1 H (50-75) % Lymph % (Auto) 6.1 L (25-40) % [place] % (Auto) 6.1 (3-14) % Eos % (Auto) 0.2 L (2-4) % Baso % (Auto) 0.5 (0-2) % Neut # (Auto) 61239 H (6312-9015) /uL Lymph # (Auto) 1100 (0820-7390) /uL [place] # (Auto) 1100 H (0-900) /uL Eos # (Auto) 0 (0-450) /uL Baso # (Auto) 100 (0-100) /uL ABG pH (7.35-7.45) ABG pCO2 (35-45) mmHg ABG pO2 (80-100) mmHg ABG HCO3 (23-27) mmol/L ABG Total CO2 (23-27) mmol/L ABG O2 Saturation (95-100) % ABG Base Excess (-2-3) mmol/L FiO2 Sodium 139 (137-145) mmol/L Potassium 2.1 L* (3.4-5.1) mmol/L Chloride 90 L (98-107) mmol/L Carbon Dioxide 44 H* (22-32) mmol/L BUN 17 (9-20) mg/dL Creatinine 0.72 (0.66-1.25) mg/dL Estimated GFR > 60 (>60) mL/min BUN/Creatinine Ratio 23.6 H (6-22) Glucose 141 H (80-110) mg/dL Lactate (0.7-2.1) mmol/L Calcium 8.9 (8.4-10.2) mg/dL Phosphorus (2.3-3.7) mg/dL Magnesium (1.6-2.3) mg/dL Total Bilirubin 0.9 (0.2-1.3) mg/dL AST 63 H (17-59) IU/L ALT 169 H (<50) IU/L Alkaline Phosphatase 98 (38-126) U/L Total Creatine Kinase 31 L (55-170) U/L CK-MB (CK-2) TNP CK-MB (CK-2) Rel Index TNP Troponin I 0.046 H (0.01-0.034) ng/mL NT-Pro-B Natriuret Pep 401 H (<125) pg/mL Total Protein 7.2 (6.3-8.2) g/dL Albumin 3.6 (3.5-5.0) g/dL Globulin 3.6 (1.7-4.1) g/dL Albumin/Globulin Ratio 1.0 (1.0-2.8) Lipase 173 (23-300) U/L Procalcitonin (<0.5) ng/mL Nasal Screen MRSA (PCR) (Not Detect) Vancomycin Peak (20-40) ug/mL Vancomycin Trough (10-20) ug/mL SARS-CoV-2 (PCR) Negative (Negative) Influenza A (RT-PCR) Flu a negative (NEGATIVE) Influenza B (RT-PCR) Flu b negative (NEGATIVE) RSV (PCR) Negative (Negative) 08/24/22 08/24/22 08/24/22 Range/Units 14:27 16:27 16:41 WBC (4.5-11.0) X10^3/uL RBC (4.5-5.9) X10^6/uL Hgb (13.5-17.5) g/dL Hct (41-53) % MCV (80-100) fL MCH (26-34) PG MCHC (30-36) % RDW (11.6-14.8) % Plt Count (150-400) X10^3/uL Neut % (Auto) (50-75) % Lymph % (Auto) (25-40) % [place] % (Auto) (3-14) % Eos % (Auto) (2-4) % Baso % (Auto) (0-2) % Neut # (Auto) (2058-4694) /uL Lymph # (Auto) (4959-7552) /uL [place] # (Auto) (0-900) /uL Eos # (Auto) (0-450) /uL Baso # (Auto) (0-100) /uL ABG pH 7.53 H (7.35-7.45) ABG pCO2 52.0 H (35-45) mmHg ABG pO2 54 L (80-100) mmHg ABG HCO3 44 H (23-27) mmol/L ABG Total CO2 45 H (23-27) mmol/L ABG O2 Saturation 90 L (95-100) % ABG Base Excess 21.0 H (-2-3) mmol/L FiO2 24 Sodium (137-145) mmol/L Potassium (3.4-5.1) mmol/L Chloride (98-107) mmol/L Carbon Dioxide (22-32) mmol/L BUN (9-20) mg/dL Creatinine (0.66-1.25) mg/dL Estimated GFR (>60) mL/min BUN/Creatinine Ratio (6-22) Glucose (80-110) mg/dL Lactate (0.7-2.1) mmol/L Calcium (8.4-10.2) mg/dL Phosphorus (2.3-3.7) mg/dL Magnesium 2.1 (1.6-2.3) mg/dL Total Bilirubin (0.2-1.3) mg/dL AST (17-59) IU/L ALT (<50) IU/L Alkaline Phosphatase (38-126) U/L Total Creatine Kinase 29 L (55-170) U/L CK-MB (CK-2) TNP CK-MB (CK-2) Rel Index TNP Troponin I 0.053 H (0.01-0.034) ng/mL NT-Pro-B Natriuret Pep (<125) pg/mL Total Protein (6.3-8.2) g/dL Albumin (3.5-5.0) g/dL Globulin (1.7-4.1) g/dL Albumin/Globulin Ratio (1.0-2.8) Lipase (23-300) U/L Procalcitonin (<0.5) ng/mL Nasal Screen MRSA (PCR) (Not Detect) Vancomycin Peak (20-40) ug/mL Vancomycin Trough (10-20) ug/mL SARS-CoV-2 (PCR) (Negative) Influenza A (RT-PCR) (NEGATIVE) Influenza B (RT-PCR) (NEGATIVE) RSV (PCR) (Negative) 08/24/22 08/24/22 08/24/22 Range/Units 18:03 18:03 19:55 WBC (4.5-11.0) X10^3/uL RBC (4.5-5.9) X10^6/uL Hgb (13.5-17.5) g/dL Hct (41-53) % MCV (80-100) fL MCH (26-34) PG MCHC (30-36) % RDW (11.6-14.8) % Plt Count (150-400) X10^3/uL Neut % (Auto) (50-75) % Lymph % (Auto) (25-40) % [place] % (Auto) (3-14) % Eos % (Auto) (2-4) % Baso % (Auto) (0-2) % Neut # (Auto) (9830-7719) /uL Lymph # (Auto) (6222-7598) /uL [place] # (Auto) (0-900) /uL Eos # (Auto) (0-450) /uL Baso # (Auto) (0-100) /uL ABG pH (7.35-7.45) ABG pCO2 (35-45) mmHg ABG pO2 (80-100) mmHg ABG HCO3 (23-27) mmol/L ABG Total CO2 (23-27) mmol/L ABG O2 Saturation (95-100) % ABG Base Excess (-2-3) mmol/L FiO2 Sodium 139 (137-145) mmol/L Potassium 2.7 L* (3.4-5.1) mmol/L Chloride 90 L (98-107) mmol/L Carbon Dioxide 40 H* (22-32) mmol/L BUN 16 (9-20) mg/dL Creatinine 0.67 (0.66-1.25) mg/dL Estimated GFR > 60 (>60) mL/min BUN/Creatinine Ratio 23.9 H (6-22) Glucose 147 H (80-110) mg/dL Lactate (0.7-2.1) mmol/L Calcium 8.9 (8.4-10.2) mg/dL Phosphorus 2.4 (2.3-3.7) mg/dL Magnesium 2.1 (1.6-2.3) mg/dL Total Bilirubin 1.0 (0.2-1.3) mg/dL AST 67 H (17-59) IU/L ALT 166 H (<50) IU/L Alkaline Phosphatase 105 (38-126) U/L Total Creatine Kinase (55-170) U/L CK-MB (CK-2) CK-MB (CK-2) Rel Index Troponin I 0.054 H (0.01-0.034) ng/mL NT-Pro-B Natriuret Pep (<125) pg/mL Total Protein 7.4 (6.3-8.2) g/dL Albumin 3.7 (3.5-5.0) g/dL Globulin 3.7 (1.7-4.1) g/dL Albumin/Globulin Ratio 1.0 (1.0-2.8) Lipase (23-300) U/L Procalcitonin 0.43 (<0.5) ng/mL Nasal Screen MRSA (PCR) (Not Detect) Vancomycin Peak (20-40) ug/mL Vancomycin Trough (10-20) ug/mL SARS-CoV-2 (PCR) (Negative) Influenza A (RT-PCR) (NEGATIVE) Influenza B (RT-PCR) (NEGATIVE) RSV (PCR) (Negative) 08/24/22 08/25/22 08/25/22 Range/Units 19:55 07:30 07:30 WBC 14.6 H (4.5-11.0) X10^3/uL RBC 5.53 (4.5-5.9) X10^6/uL Hgb 16.7 (13.5-17.5) g/dL Hct 49.6 (41-53) % MCV 89.6 (80-100) fL MCH 30.2 (26-34) PG MCHC 33.7 (30-36) % RDW 14.3 (11.6-14.8) % Plt Count 216 (150-400) X10^3/uL Neut % (Auto) 84.7 H (50-75) % Lymph % (Auto) 9.8 L (25-40) % [place] % (Auto) 5.1 (3-14) % Eos % (Auto) 0.0 L (2-4) % Baso % (Auto) 0.4 (0-2) % Neut # (Auto) 64457 H (1605-9309) /uL Lymph # (Auto) 1400 (9449-5532) /uL [place] # (Auto) 700 (0-900) /uL Eos # (Auto) 0 (0-450) /uL Baso # (Auto) 100 (0-100) /uL ABG pH (7.35-7.45) ABG pCO2 (35-45) mmHg ABG pO2 (80-100) mmHg ABG HCO3 (23-27) mmol/L ABG Total CO2 (23-27) mmol/L ABG O2 Saturation (95-100) % ABG Base Excess (-2-3) mmol/L FiO2 Sodium 140 (137-145) mmol/L Potassium 2.6 L* (3.4-5.1) mmol/L Chloride 93 L (98-107) mmol/L Carbon Dioxide 43 H* (22-32) mmol/L BUN 20 (9-20) mg/dL Creatinine 0.67 (0.66-1.25) mg/dL Estimated GFR > 60 (>60) mL/min BUN/Creatinine Ratio 29.9 H (6-22) Glucose 129 H (80-110) mg/dL Lactate 1.2 (0.7-2.1) mmol/L Calcium 8.7 (8.4-10.2) mg/dL Phosphorus (2.3-3.7) mg/dL Magnesium (1.6-2.3) mg/dL Total Bilirubin 0.9 (0.2-1.3) mg/dL AST 51 (17-59) IU/L ALT 142 H (<50) IU/L Alkaline Phosphatase 87 (38-126) U/L Total Creatine Kinase (55-170) U/L CK-MB (CK-2) CK-MB (CK-2) Rel Index Troponin I (0.01-0.034) ng/mL NT-Pro-B Natriuret Pep (<125) pg/mL Total Protein 7.1 (6.3-8.2) g/dL Albumin 3.6 (3.5-5.0) g/dL Globulin 3.5 (1.7-4.1) g/dL Albumin/Globulin Ratio 1.0 (1.0-2.8) Lipase (23-300) U/L Procalcitonin (<0.5) ng/mL Nasal Screen MRSA (PCR) (Not Detect) Vancomycin Peak (20-40) ug/mL Vancomycin Trough (10-20) ug/mL SARS-CoV-2 (PCR) (Negative) Influenza A (RT-PCR) (NEGATIVE) Influenza B (RT-PCR) (NEGATIVE) RSV (PCR) (Negative) 08/25/22 08/25/22 08/26/22 Range/Units 18:40 19:50 03:55 WBC 19.6 H (4.5-11.0) X10^3/uL RBC 5.23 (4.5-5.9) X10^6/uL Hgb 15.7 (13.5-17.5) g/dL Hct 47.1 (41-53) % MCV 90.1 (80-100) fL MCH 30.1 (26-34) PG MCHC 33.4 (30-36) % RDW 14.2 (11.6-14.8) % Plt Count 222 (150-400) X10^3/uL Neut % (Auto) 88.3 H (50-75) % Lymph % (Auto) 6.4 L (25-40) % [place] % (Auto) 4.9 (3-14) % Eos % (Auto) 0.0 L (2-4) % Baso % (Auto) 0.4 (0-2) % Neut # (Auto) 90351 H (6629-6042) /uL Lymph # (Auto) 1300 (1971-1272) /uL [place] # (Auto) 1000 H (0-900) /uL Eos # (Auto) 0 (0-450) /uL Baso # (Auto) 100 (0-100) /uL ABG pH (7.35-7.45) ABG pCO2 (35-45) mmHg ABG pO2 (80-100) mmHg ABG HCO3 (23-27) mmol/L ABG Total CO2 (23-27) mmol/L ABG O2 Saturation (95-100) % ABG Base Excess (-2-3) mmol/L FiO2 Sodium 139 (137-145) mmol/L Potassium 2.3 L* (3.4-5.1) mmol/L Chloride 95 L (98-107) mmol/L Carbon Dioxide 37 H (22-32) mmol/L BUN 22 H (9-20) mg/dL Creatinine 0.69 (0.66-1.25) mg/dL Estimated GFR > 60 (>60) mL/min BUN/Creatinine Ratio 31.9 H (6-22) Glucose 163 H (80-110) mg/dL Lactate (0.7-2.1) mmol/L Calcium 8.5 (8.4-10.2) mg/dL Phosphorus (2.3-3.7) mg/dL Magnesium 2.0 (1.6-2.3) mg/dL Total Bilirubin (0.2-1.3) mg/dL AST (17-59) IU/L ALT (<50) IU/L Alkaline Phosphatase (38-126) U/L Total Creatine Kinase (55-170) U/L CK-MB (CK-2) CK-MB (CK-2) Rel Index Troponin I (0.01-0.034) ng/mL NT-Pro-B Natriuret Pep (<125) pg/mL Total Protein (6.3-8.2) g/dL Albumin (3.5-5.0) g/dL Globulin (1.7-4.1) g/dL Albumin/Globulin Ratio (1.0-2.8) Lipase (23-300) U/L Procalcitonin (<0.5) ng/mL Nasal Screen MRSA (PCR) Not detected (Not Detect) Vancomycin Peak (20-40) ug/mL Vancomycin Trough (10-20) ug/mL SARS-CoV-2 (PCR) (Negative) Influenza A (RT-PCR) (NEGATIVE) Influenza B (RT-PCR) (NEGATIVE) RSV (PCR) (Negative) 08/26/22 08/26/22 08/26/22 Range/Units 03:55 03:55 17:38 WBC (4.5-11.0) X10^3/uL RBC (4.5-5.9) X10^6/uL Hgb (13.5-17.5) g/dL Hct (41-53) % MCV (80-100) fL MCH (26-34) PG MCHC (30-36) % RDW (11.6-14.8) % Plt Count (150-400) X10^3/uL Neut % (Auto) (50-75) % Lymph % (Auto) (25-40) % [place] % (Auto) (3-14) % Eos % (Auto) (2-4) % Baso % (Auto) (0-2) % Neut # (Auto) (9308-8599) /uL Lymph # (Auto) (7070-9937) /uL [place] # (Auto) (0-900) /uL Eos # (Auto) (0-450) /uL Baso # (Auto) (0-100) /uL ABG pH (7.35-7.45) ABG pCO2 (35-45) mmHg ABG pO2 (80-100) mmHg ABG HCO3 (23-27) mmol/L ABG Total CO2 (23-27) mmol/L ABG O2 Saturation (95-100) % ABG Base Excess (-2-3) mmol/L FiO2 Sodium 139 141 (137-145) mmol/L Potassium 3.2 L 2.6 L* (3.4-5.1) mmol/L Chloride 97 L 96 L (98-107) mmol/L Carbon Dioxide 39 H 39 H (22-32) mmol/L BUN 18 22 H (9-20) mg/dL Creatinine 0.60 L 0.69 (0.66-1.25) mg/dL Estimated GFR > 60 > 60 (>60) mL/min BUN/Creatinine Ratio 30.0 H 31.9 H (6-22) Glucose 151 H 132 H (80-110) mg/dL Lactate (0.7-2.1) mmol/L Calcium 8.6 8.7 (8.4-10.2) mg/dL Phosphorus (2.3-3.7) mg/dL Magnesium (1.6-2.3) mg/dL Total Bilirubin (0.2-1.3) mg/dL AST (17-59) IU/L ALT (<50) IU/L Alkaline Phosphatase (38-126) U/L Total Creatine Kinase (55-170) U/L CK-MB (CK-2) CK-MB (CK-2) Rel Index Troponin I (0.01-0.034) ng/mL NT-Pro-B Natriuret Pep (<125) pg/mL Total Protein (6.3-8.2) g/dL Albumin (3.5-5.0) g/dL Globulin (1.7-4.1) g/dL Albumin/Globulin Ratio (1.0-2.8) Lipase (23-300) U/L Procalcitonin 0.39 (<0.5) ng/mL Nasal Screen MRSA (PCR) (Not Detect) Vancomycin Peak (20-40) ug/mL Vancomycin Trough (10-20) ug/mL SARS-CoV-2 (PCR) (Negative) Influenza A (RT-PCR) (NEGATIVE) Influenza B (RT-PCR) (NEGATIVE) RSV (PCR) (Negative) 08/27/22 08/27/22 08/27/22 Range/Units 06:15 06:15 06:15 WBC 13.9 H (4.5-11.0) X10^3/uL RBC 4.79 (4.5-5.9) X10^6/uL Hgb 14.5 (13.5-17.5) g/dL Hct 42.8 (41-53) % MCV 89.4 (80-100) fL MCH 30.3 (26-34) PG MCHC 33.9 (30-36) % RDW 13.9 (11.6-14.8) % Plt Count 189 (150-400) X10^3/uL Neut % (Auto) 87.8 H (50-75) % Lymph % (Auto) 7.5 L (25-40) % [place] % (Auto) 4.5 (3-14) % Eos % (Auto) 0.0 L (2-4) % Baso % (Auto) 0.2 (0-2) % Neut # (Auto) 72090 H (2990-1933) /uL Lymph # (Auto) 1000 L (8139-0987) /uL [place] # (Auto) 600 (0-900) /uL Eos # (Auto) 0 (0-450) /uL Baso # (Auto) 0 (0-100) /uL ABG pH (7.35-7.45) ABG pCO2 (35-45) mmHg ABG pO2 (80-100) mmHg ABG HCO3 (23-27) mmol/L ABG Total CO2 (23-27) mmol/L ABG O2 Saturation (95-100) % ABG Base Excess (-2-3) mmol/L FiO2 Sodium 140 (137-145) mmol/L Potassium 3.2 L (3.4-5.1) mmol/L Chloride 101 (98-107) mmol/L Carbon Dioxide 38 H (22-32) mmol/L BUN 23 H (9-20) mg/dL Creatinine 0.66 (0.66-1.25) mg/dL Estimated GFR > 60 (>60) mL/min BUN/Creatinine Ratio 34.8 H (6-22) Glucose 135 H (80-110) mg/dL Lactate (0.7-2.1) mmol/L Calcium 8.3 L (8.4-10.2) mg/dL Phosphorus (2.3-3.7) mg/dL Magnesium (1.6-2.3) mg/dL Total Bilirubin (0.2-1.3) mg/dL AST (17-59) IU/L ALT (<50) IU/L Alkaline Phosphatase (38-126) U/L Total Creatine Kinase (55-170) U/L CK-MB (CK-2) CK-MB (CK-2) Rel Index Troponin I (0.01-0.034) ng/mL NT-Pro-B Natriuret Pep (<125) pg/mL Total Protein (6.3-8.2) g/dL Albumin (3.5-5.0) g/dL Globulin (1.7-4.1) g/dL Albumin/Globulin Ratio (1.0-2.8) Lipase (23-300) U/L Procalcitonin (<0.5) ng/mL Nasal Screen MRSA (PCR) (Not Detect) Vancomycin Peak (20-40) ug/mL Vancomycin Trough 9.4 L (10-20) ug/mL SARS-CoV-2 (PCR) (Negative) Influenza A (RT-PCR) (NEGATIVE) Influenza B (RT-PCR) (NEGATIVE) RSV (PCR) (Negative) 08/27/22 Range/Units 10:35 WBC (4.5-11.0) X10^3/uL RBC (4.5-5.9) X10^6/uL Hgb (13.5-17.5) g/dL Hct (41-53) % MCV (80-100) fL MCH (26-34) PG MCHC (30-36) % RDW (11.6-14.8) % Plt Count (150-400) X10^3/uL Neut % (Auto) (50-75) % Lymph % (Auto) (25-40) % [place] % (Auto) (3-14) % Eos % (Auto) (2-4) % Baso % (Auto) (0-2) % Neut # (Auto) (8612-9550) /uL Lymph # (Auto) (8995-0699) /uL [place] # (Auto) (0-900) /uL Eos # (Auto) (0-450) /uL Baso # (Auto) (0-100) /uL ABG pH (7.35-7.45) ABG pCO2 (35-45) mmHg ABG pO2 (80-100) mmHg ABG HCO3 (23-27) mmol/L ABG Total CO2 (23-27) mmol/L ABG O2 Saturation (95-100) % ABG Base Excess (-2-3) mmol/L FiO2 Sodium (137-145) mmol/L Potassium (3.4-5.1) mmol/L Chloride (98-107) mmol/L Carbon Dioxide (22-32) mmol/L BUN (9-20) mg/dL Creatinine (0.66-1.25) mg/dL Estimated GFR (>60) mL/min BUN/Creatinine Ratio (6-22) Glucose (80-110) mg/dL Lactate (0.7-2.1) mmol/L Calcium (8.4-10.2) mg/dL Phosphorus (2.3-3.7) mg/dL Magnesium (1.6-2.3) mg/dL Total Bilirubin (0.2-1.3) mg/dL AST (17-59) IU/L ALT (<50) IU/L Alkaline Phosphatase (38-126) U/L Total Creatine Kinase (55-170) U/L CK-MB (CK-2) CK-MB (CK-2) Rel Index Troponin I (0.01-0.034) ng/mL NT-Pro-B Natriuret Pep (<125) pg/mL Total Protein (6.3-8.2) g/dL Albumin (3.5-5.0) g/dL Globulin (1.7-4.1) g/dL Albumin/Globulin Ratio (1.0-2.8) Lipase (23-300) U/L Procalcitonin (<0.5) ng/mL Nasal Screen MRSA (PCR) (Not Detect) Vancomycin Peak 24.1 (20-40) ug/mL Vancomycin Trough (10-20) ug/mL SARS-CoV-2 (PCR) (Negative) Influenza A (RT-PCR) (NEGATIVE) Influenza B (RT-PCR) (NEGATIVE) RSV (PCR) (Negative) Urine Dip Bedside Urine Glucose Negative Bedside Urine Bilirubin - Negative Bedside Urine Ketone - Negative Urine Specific [place] 1.015 Bedside Urine Occult Blood - Negative Bedside Urine pH 7.5 Bedside Urine Protein - Negative Bedside Urine Urobilinogen - Negative Bedside Urine Nitrite - Negative Bedside Urine Leukocytes - Negative Esterase MDM Narrative Medical decision making narrative: 71-year-old male with past medical history hypertension presents to the ED with 2 weeks of cough, sputum, chest tightness. Concern for URI versus ACS versus pneumonia versus congestive heart failure versus hypertension versus other. Will obtain EKG, chest x-ray, labs, troponin, BNP. Will reassess. EKG without acute ST-T changes. Chest x-ray shows chronic interstitial lung disease versus viral pneumonitis. Potassium low at 2.1. CO2 elevated to 44. Troponin elevated to 0.046. WBC elevated to 17. Urine without UTI. Cardiology was consulted regarding the troponin rise. Dr. Preston suspects that the troponin rise is more related to patient's pulmonary issues, which could be possibly COPD versus ILD versus pneumonitis vs other. He recommends getting an echo, stress test, serial troponins, no strong indication for heparin. Repeat troponin was 0.053. No EKG changes noted on repeat EKG. Potassium was repleted with 40 p.o. and 40 IV, IV fluids. Repeat potassium was 2.7. ABG was obtained which shows metabolic alkalosis. Patient was given aspirin 324. Patient's SpO2 hovered between 90 and 92, sometimes dipping to 88. A CT PE was obtained to rule out PE. The CT showed no pulmonary embolism, however shows possible postobstructive pneumonitis versus neoplasm. Patient also treated like a COPD exacerbation with prednisone, azithromycin, Rocephin. No albuterol at this time, given the hypokalemia. Patient was discussed with Dr. Jessica Simon, and hospitalist Dr. Storey and the consensus was to find a outside facility to transfer the patient to that has pulmonology. Patient's antibiotic coverage broadened with vancomycin and Zosyn. Patient signed out to Dr. Jessica Simon. 930pm Care is accepted. Patient is independently reviewed and labs and studies reviewed. In short, 71-year-old gentleman with increasing cough CT scan suggests mediastinal and right hilar adenopathy suspicious for neoplasm with right lower lung abnormalities that likely are postobstructive pneumonia. Patient does have a significant white count at 17.7 was initially started on ceftriaxone and azithromycin which was broadened to cefepime and vancomycin once CT scan was reviewed. He is mildly hypoxic and oxygen is in place with goal to keep sats 90-94%. Lactic acid is not elevated and he is not hypotensive. Slightly elevated transaminases. Mild bump in troponin that seems to be stabilizing in his likely reaction to work of breathing and pulmonary source rather than NSTEMI. EKG does not suggest acute ischemia or STEMI. Currently needing minimal ventilatory support and is feeling significantly improved. Blood pressure is dramatically elevated and has been as an outpatient as well. There had been an extended period of time he was not taking his losartan and that was restarted along with the addition of amlodipine about a week ago. He was given these medications this morning will give him a 2nd dose this evening as systolics were consistently above 200. We are looking for bed availability with pulmonary inpatient consultation available. At this point is not an ICU candidate and I do not anticipate need for advanced oxygen such as high-flow CPAP or intubation was in the next 24 hours. Patient understands findings, concerns on CT scan and reasons for transfer. Patient is appropriately upset over diagnosis and inability to transfer. With shared decision-making we opted to treat with 5 mg of oral diaze christina for this evening. Multiple hospitals have been contacted and currently beds are not immediately available. Will continue working on availablilty 10pm discussed with [facility] transfer center <Finn Cali DO - Last Filed: 08/25/22 18:44> Lab Data Labs: Lab Results 08/24/22 08/24/22 08/24/22 Range/Units 12:14 14:27 14:27 WBC 17.7 H (4.5-11.0) X10^3/uL RBC 5.73 (4.5-5.9) X10^6/uL Hgb 17.2 (13.5-17.5) g/dL Hct 51.3 (41-53) % MCV 89.5 (80-100) fL MCH 30.0 (26-34) PG MCHC 33.6 (30-36) % RDW 14.3 (11.6-14.8) % Plt Count 220 (150-400) X10^3/uL Neut % (Auto) 87.1 H (50-75) % Lymph % (Auto) 6.1 L (25-40) % [place] % (Auto) 6.1 (3-14) % Eos % (Auto) 0.2 L (2-4) % Baso % (Auto) 0.5 (0-2) % Neut # (Auto) 98016 H (7226-8497) /uL Lymph # (Auto) 1100 (6528-5717) /uL [place] # (Auto) 1100 H (0-900) /uL Eos # (Auto) 0 (0-450) /uL Baso # (Auto) 100 (0-100) /uL ABG pH (7.35-7.45) ABG pCO2 (35-45) mmHg ABG pO2 (80-100) mmHg ABG HCO3 (23-27) mmol/L ABG Total CO2 (23-27) mmol/L ABG O2 Saturation (95-100) % ABG Base Excess (-2-3) mmol/L FiO2 Sodium 139 (137-145) mmol/L Potassium 2.1 L* (3.4-5.1) mmol/L Chloride 90 L (98-107) mmol/L Carbon Dioxide 44 H* (22-32) mmol/L BUN 17 (9-20) mg/dL Creatinine 0.72 (0.66-1.25) mg/dL Estimated GFR > 60 (>60) mL/min BUN/Creatinine Ratio 23.6 H (6-22) Glucose 141 H (80-110) mg/dL Lactate (0.7-2.1) mmol/L Calcium 8.9 (8.4-10.2) mg/dL Phosphorus (2.3-3.7) mg/dL Magnesium (1.6-2.3) mg/dL Total Bilirubin 0.9 (0.2-1.3) mg/dL AST 63 H (17-59) IU/L ALT 169 H (<50) IU/L Alkaline Phosphatase 98 (38-126) U/L Total Creatine Kinase 31 L (55-170) U/L CK-MB (CK-2) TNP CK-MB (CK-2) Rel Index TNP Troponin I 0.046 H (0.01-0.034) ng/mL NT-Pro-B Natriuret Pep 401 H (<125) pg/mL Total Protein 7.2 (6.3-8.2) g/dL Albumin 3.6 (3.5-5.0) g/dL Globulin 3.6 (1.7-4.1) g/dL Albumin/Globulin Ratio 1.0 (1.0-2.8) Lipase 173 (23-300) U/L Procalcitonin (<0.5) ng/mL Nasal Screen MRSA (PCR) (Not Detect) Vancomycin Peak (20-40) ug/mL Vancomycin Trough (10-20) ug/mL SARS-CoV-2 (PCR) Negative (Negative) Influenza A (RT-PCR) Flu a negative (NEGATIVE) Influenza B (RT-PCR) Flu b negative (NEGATIVE) RSV (PCR) Negative (Negative) 08/24/22 08/24/22 08/24/22 Range/Units 14:27 16:27 16:41 WBC (4.5-11.0) X10^3/uL RBC (4.5-5.9) X10^6/uL Hgb (13.5-17.5) g/dL Hct (41-53) % MCV (80-100) fL MCH (26-34) PG MCHC (30-36) % RDW (11.6-14.8) % Plt Count (150-400) X10^3/uL Neut % (Auto) (50-75) % Lymph % (Auto) (25-40) % [place] % (Auto) (3-14) % Eos % (Auto) (2-4) % Baso % (Auto) (0-2) % Neut # (Auto) (7357-8562) /uL Lymph # (Auto) (7673-5743) /uL [place] # (Auto) (0-900) /uL Eos # (Auto) (0-450) /uL Baso # (Auto) (0-100) /uL ABG pH 7.53 H (7.35-7.45) ABG pCO2 52.0 H (35-45) mmHg ABG pO2 54 L (80-100) mmHg ABG HCO3 44 H (23-27) mmol/L ABG Total CO2 45 H (23-27) mmol/L ABG O2 Saturation 90 L (95-100) % ABG Base Excess 21.0 H (-2-3) mmol/L FiO2 24 Sodium (137-145) mmol/L Potassium (3.4-5.1) mmol/L Chloride (98-107) mmol/L Carbon Dioxide (22-32) mmol/L BUN (9-20) mg/dL Creatinine (0.66-1.25) mg/dL Estimated GFR (>60) mL/min BUN/Creatinine Ratio (6-22) Glucose (80-110) mg/dL Lactate (0.7-2.1) mmol/L Calcium (8.4-10.2) mg/dL Phosphorus (2.3-3.7) mg/dL Magnesium 2.1 (1.6-2.3) mg/dL Total Bilirubin (0.2-1.3) mg/dL AST (17-59) IU/L ALT (<50) IU/L Alkaline Phosphatase (38-126) U/L Total Creatine Kinase 29 L (55-170) U/L CK-MB (CK-2) TNP CK-MB (CK-2) Rel Index TNP Troponin I 0.053 H (0.01-0.034) ng/mL NT-Pro-B Natriuret Pep (<125) pg/mL Total Protein (6.3-8.2) g/dL Albumin (3.5-5.0) g/dL Globulin (1.7-4.1) g/dL Albumin/Globulin Ratio (1.0-2.8) Lipase (23-300) U/L Procalcitonin (<0.5) ng/mL Nasal Screen MRSA (PCR) (Not Detect) Vancomycin Peak (20-40) ug/mL Vancomycin Trough (10-20) ug/mL SARS-CoV-2 (PCR) (Negative) Influenza A (RT-PCR) (NEGATIVE) Influenza B (RT-PCR) (NEGATIVE) RSV (PCR) (Negative) 08/24/22 08/24/22 08/24/22 Range/Units 18:03 18:03 19:55 WBC (4.5-11.0) X10^3/uL RBC (4.5-5.9) X10^6/uL Hgb (13.5-17.5) g/dL Hct (41-53) % MCV (80-100) fL MCH (26-34) PG MCHC (30-36) % RDW (11.6-14.8) % Plt Count (150-400) X10^3/uL Neut % (Auto) (50-75) % Lymph % (Auto) (25-40) % [place] % (Auto) (3-14) % Eos % (Auto) (2-4) % Baso % (Auto) (0-2) % Neut # (Auto) (6451-4891) /uL Lymph # (Auto) (0292-5024) /uL [place] # (Auto) (0-900) /uL Eos # (Auto) (0-450) /uL Baso # (Auto) (0-100) /uL ABG pH (7.35-7.45) ABG pCO2 (35-45) mmHg ABG pO2 (80-100) mmHg ABG HCO3 (23-27) mmol/L ABG Total CO2 (23-27) mmol/L ABG O2 Saturation (95-100) % ABG Base Excess (-2-3) mmol/L FiO2 Sodium 139 (137-145) mmol/L Potassium 2.7 L* (3.4-5.1) mmol/L Chloride 90 L (98-107) mmol/L Carbon Dioxide 40 H* (22-32) mmol/L BUN 16 (9-20) mg/dL Creatinine 0.67 (0.66-1.25) mg/dL Estimated GFR > 60 (>60) mL/min BUN/Creatinine Ratio 23.9 H (6-22) Glucose 147 H (80-110) mg/dL Lactate (0.7-2.1) mmol/L Calcium 8.9 (8.4-10.2) mg/dL Phosphorus 2.4 (2.3-3.7) mg/dL Magnesium 2.1 (1.6-2.3) mg/dL Total Bilirubin 1.0 (0.2-1.3) mg/dL AST 67 H (17-59) IU/L ALT 166 H (<50) IU/L Alkaline Phosphatase 105 (38-126) U/L Total Creatine Kinase (55-170) U/L CK-MB (CK-2) CK-MB (CK-2) Rel Index Troponin I 0.054 H (0.01-0.034) ng/mL NT-Pro-B Natriuret Pep (<125) pg/mL Total Protein 7.4 (6.3-8.2) g/dL Albumin 3.7 (3.5-5.0) g/dL Globulin 3.7 (1.7-4.1) g/dL Albumin/Globulin Ratio 1.0 (1.0-2.8) Lipase (23-300) U/L Procalcitonin 0.43 (<0.5) ng/mL Nasal Screen MRSA (PCR) (Not Detect) Vancomycin Peak (20-40) ug/mL Vancomycin Trough (10-20) ug/mL SARS-CoV-2 (PCR) (Negative) Influenza A (RT-PCR) (NEGATIVE) Influenza B (RT-PCR) (NEGATIVE) RSV (PCR) (Negative) 08/24/22 08/25/22 08/25/22 Range/Units 19:55 07:30 07:30 WBC 14.6 H (4.5-11.0) X10^3/uL RBC 5.53 (4.5-5.9) X10^6/uL Hgb 16.7 (13.5-17.5) g/dL Hct 49.6 (41-53) % MCV 89.6 (80-100) fL MCH 30.2 (26-34) PG MCHC 33.7 (30-36) % RDW 14.3 (11.6-14.8) % Plt Count 216 (150-400) X10^3/uL Neut % (Auto) 84.7 H (50-75) % Lymph % (Auto) 9.8 L (25-40) % [place] % (Auto) 5.1 (3-14) % Eos % (Auto) 0.0 L (2-4) % Baso % (Auto) 0.4 (0-2) % Neut # (Auto) 13322 H (8439-3619) /uL Lymph # (Auto) 1400 (0837-2297) /uL [place] # (Auto) 700 (0-900) /uL Eos # (Auto) 0 (0-450) /uL Baso # (Auto) 100 (0-100) /uL ABG pH (7.35-7.45) ABG pCO2 (35-45) mmHg ABG pO2 (80-100) mmHg ABG HCO3 (23-27) mmol/L ABG Total CO2 (23-27) mmol/L ABG O2 Saturation (95-100) % ABG Base Excess (-2-3) mmol/L FiO2 Sodium 140 (137-145) mmol/L Potassium 2.6 L* (3.4-5.1) mmol/L Chloride 93 L (98-107) mmol/L Carbon Dioxide 43 H* (22-32) mmol/L BUN 20 (9-20) mg/dL Creatinine 0.67 (0.66-1.25) mg/dL Estimated GFR > 60 (>60) mL/min BUN/Creatinine Ratio 29.9 H (6-22) Glucose 129 H (80-110) mg/dL Lactate 1.2 (0.7-2.1) mmol/L Calcium 8.7 (8.4-10.2) mg/dL Phosphorus (2.3-3.7) mg/dL Magnesium (1.6-2.3) mg/dL Total Bilirubin 0.9 (0.2-1.3) mg/dL AST 51 (17-59) IU/L ALT 142 H (<50) IU/L Alkaline Phosphatase 87 (38-126) U/L Total Creatine Kinase (55-170) U/L CK-MB (CK-2) CK-MB (CK-2) Rel Index Troponin I (0.01-0.034) ng/mL NT-Pro-B Natriuret Pep (<125) pg/mL Total Protein 7.1 (6.3-8.2) g/dL Albumin 3.6 (3.5-5.0) g/dL Globulin 3.5 (1.7-4.1) g/dL Albumin/Globulin Ratio 1.0 (1.0-2.8) Lipase (23-300) U/L Procalcitonin (<0.5) ng/mL Nasal Screen MRSA (PCR) (Not Detect) Vancomycin Peak (20-40) ug/mL Vancomycin Trough (10-20) ug/mL SARS-CoV-2 (PCR) (Negative) Influenza A (RT-PCR) (NEGATIVE) Influenza B (RT-PCR) (NEGATIVE) RSV (PCR) (Negative) 08/25/22 08/25/22 08/26/22 Range/Units 18:40 19:50 03:55 WBC 19.6 H (4.5-11.0) X10^3/uL RBC 5.23 (4.5-5.9) X10^6/uL Hgb 15.7 (13.5-17.5) g/dL Hct 47.1 (41-53) % MCV 90.1 (80-100) fL MCH 30.1 (26-34) PG MCHC 33.4 (30-36) % RDW 14.2 (11.6-14.8) % Plt Count 222 (150-400) X10^3/uL Neut % (Auto) 88.3 H (50-75) % Lymph % (Auto) 6.4 L (25-40) % [place] % (Auto) 4.9 (3-14) % Eos % (Auto) 0.0 L (2-4) % Baso % (Auto) 0.4 (0-2) % Neut # (Auto) 22598 H (9952-2237) /uL Lymph # (Auto) 1300 (9991-0444) /uL [place] # (Auto) 1000 H (0-900) /uL Eos # (Auto) 0 (0-450) /uL Baso # (Auto) 100 (0-100) /uL ABG pH (7.35-7.45) ABG pCO2 (35-45) mmHg ABG pO2 (80-100) mmHg ABG HCO3 (23-27) mmol/L ABG Total CO2 (23-27) mmol/L ABG O2 Saturation (95-100) % ABG Base Excess (-2-3) mmol/L FiO2 Sodium 139 (137-145) mmol/L Potassium 2.3 L* (3.4-5.1) mmol/L Chloride 95 L (98-107) mmol/L Carbon Dioxide 37 H (22-32) mmol/L BUN 22 H (9-20) mg/dL Creatinine 0.69 (0.66-1.25) mg/dL Estimated GFR > 60 (>60) mL/min BUN/Creatinine Ratio 31.9 H (6-22) Glucose 163 H (80-110) mg/dL Lactate (0.7-2.1) mmol/L Calcium 8.5 (8.4-10.2) mg/dL Phosphorus (2.3-3.7) mg/dL Magnesium 2.0 (1.6-2.3) mg/dL Total Bilirubin (0.2-1.3) mg/dL AST (17-59) IU/L ALT (<50) IU/L Alkaline Phosphatase (38-126) U/L Total Creatine Kinase (55-170) U/L CK-MB (CK-2) CK-MB (CK-2) Rel Index Troponin I (0.01-0.034) ng/mL NT-Pro-B Natriuret Pep (<125) pg/mL Total Protein (6.3-8.2) g/dL Albumin (3.5-5.0) g/dL Globulin (1.7-4.1) g/dL Albumin/Globulin Ratio (1.0-2.8) Lipase (23-300) U/L Procalcitonin (<0.5) ng/mL Nasal Screen MRSA (PCR) Not detected (Not Detect) Vancomycin Peak (20-40) ug/mL Vancomycin Trough (10-20) ug/mL SARS-CoV-2 (PCR) (Negative) Influenza A (RT-PCR) (NEGATIVE) Influenza B (RT-PCR) (NEGATIVE) RSV (PCR) (Negative) 08/26/22 08/26/22 08/26/22 Range/Units 03:55 03:55 17:38 WBC (4.5-11.0) X10^3/uL RBC (4.5-5.9) X10^6/uL Hgb (13.5-17.5) g/dL Hct (41-53) % MCV (80-100) fL MCH (26-34) PG MCHC (30-36) % RDW (11.6-14.8) % Plt Count (150-400) X10^3/uL Neut % (Auto) (50-75) % Lymph % (Auto) (25-40) % [place] % (Auto) (3-14) % Eos % (Auto) (2-4) % Baso % (Auto) (0-2) % Neut # (Auto) (5450-4892) /uL Lymph # (Auto) (5357-4594) /uL [place] # (Auto) (0-900) /uL Eos # (Auto) (0-450) /uL Baso # (Auto) (0-100) /uL ABG pH (7.35-7.45) ABG pCO2 (35-45) mmHg ABG pO2 (80-100) mmHg ABG HCO3 (23-27) mmol/L ABG Total CO2 (23-27) mmol/L ABG O2 Saturation (95-100) % ABG Base Excess (-2-3) mmol/L FiO2 Sodium 139 141 (137-145) mmol/L Potassium 3.2 L 2.6 L* (3.4-5.1) mmol/L Chloride 97 L 96 L (98-107) mmol/L Carbon Dioxide 39 H 39 H (22-32) mmol/L BUN 18 22 H (9-20) mg/dL Creatinine 0.60 L 0.69 (0.66-1.25) mg/dL Estimated GFR > 60 > 60 (>60) mL/min BUN/Creatinine Ratio 30.0 H 31.9 H (6-22) Glucose 151 H 132 H (80-110) mg/dL Lactate (0.7-2.1) mmol/L Calcium 8.6 8.7 (8.4-10.2) mg/dL Phosphorus (2.3-3.7) mg/dL Magnesium (1.6-2.3) mg/dL Total Bilirubin (0.2-1.3) mg/dL AST (17-59) IU/L ALT (<50) IU/L Alkaline Phosphatase (38-126) U/L Total Creatine Kinase (55-170) U/L CK-MB (CK-2) CK-MB (CK-2) Rel Index Troponin I (0.01-0.034) ng/mL NT-Pro-B Natriuret Pep (<125) pg/mL Total Protein (6.3-8.2) g/dL Albumin (3.5-5.0) g/dL Globulin (1.7-4.1) g/dL Albumin/Globulin Ratio (1.0-2.8) Lipase (23-300) U/L Procalcitonin 0.39 (<0.5) ng/mL Nasal Screen MRSA (PCR) (Not Detect) Vancomycin Peak (20-40) ug/mL Vancomycin Trough (10-20) ug/mL SARS-CoV-2 (PCR) (Negative) Influenza A (RT-PCR) (NEGATIVE) Influenza B (RT-PCR) (NEGATIVE) RSV (PCR) (Negative) 08/27/22 08/27/22 08/27/22 Range/Units 06:15 06:15 06:15 WBC 13.9 H (4.5-11.0) X10^3/uL RBC 4.79 (4.5-5.9) X10^6/uL Hgb 14.5 (13.5-17.5) g/dL Hct 42.8 (41-53) % MCV 89.4 (80-100) fL MCH 30.3 (26-34) PG MCHC 33.9 (30-36) % RDW 13.9 (11.6-14.8) % Plt Count 189 (150-400) X10^3/uL Neut % (Auto) 87.8 H (50-75) % Lymph % (Auto) 7.5 L (25-40) % [place] % (Auto) 4.5 (3-14) % Eos % (Auto) 0.0 L (2-4) % Baso % (Auto) 0.2 (0-2) % Neut # (Auto) 03357 H (8514-6630) /uL Lymph # (Auto) 1000 L (7665-8025) /uL [place] # (Auto) 600 (0-900) /uL Eos # (Auto) 0 (0-450) /uL Baso # (Auto) 0 (0-100) /uL ABG pH (7.35-7.45) ABG pCO2 (35-45) mmHg ABG pO2 (80-100) mmHg ABG HCO3 (23-27) mmol/L ABG Total CO2 (23-27) mmol/L ABG O2 Saturation (95-100) % ABG Base Excess (-2-3) mmol/L FiO2 Sodium 140 (137-145) mmol/L Potassium 3.2 L (3.4-5.1) mmol/L Chloride 101 (98-107) mmol/L Carbon Dioxide 38 H (22-32) mmol/L BUN 23 H (9-20) mg/dL Creatinine 0.66 (0.66-1.25) mg/dL Estimated GFR > 60 (>60) mL/min BUN/Creatinine Ratio 34.8 H (6-22) Glucose 135 H (80-110) mg/dL Lactate (0.7-2.1) mmol/L Calcium 8.3 L (8.4-10.2) mg/dL Phosphorus (2.3-3.7) mg/dL Magnesium (1.6-2.3) mg/dL Total Bilirubin (0.2-1.3) mg/dL AST (17-59) IU/L ALT (<50) IU/L Alkaline Phosphatase (38-126) U/L Total Creatine Kinase (55-170) U/L CK-MB (CK-2) CK-MB (CK-2) Rel Index Troponin I (0.01-0.034) ng/mL NT-Pro-B Natriuret Pep (<125) pg/mL Total Protein (6.3-8.2) g/dL Albumin (3.5-5.0) g/dL Globulin (1.7-4.1) g/dL Albumin/Globulin Ratio (1.0-2.8) Lipase (23-300) U/L Procalcitonin (<0.5) ng/mL Nasal Screen MRSA (PCR) (Not Detect) Vancomycin Peak (20-40) ug/mL Vancomycin Trough 9.4 L (10-20) ug/mL SARS-CoV-2 (PCR) (Negative) Influenza A (RT-PCR) (NEGATIVE) Influenza B (RT-PCR) (NEGATIVE) RSV (PCR) (Negative) 08/27/22 Range/Units 10:35 WBC (4.5-11.0) X10^3/uL RBC (4.5-5.9) X10^6/uL Hgb (13.5-17.5) g/dL Hct (41-53) % MCV (80-100) fL MCH (26-34) PG MCHC (30-36) % RDW (11.6-14.8) % Plt Count (150-400) X10^3/uL Neut % (Auto) (50-75) % Lymph % (Auto) (25-40) % [place] % (Auto) (3-14) % Eos % (Auto) (2-4) % Baso % (Auto) (0-2) % Neut # (Auto) (3358-5040) /uL Lymph # (Auto) (4719-1279) /uL [place] # (Auto) (0-900) /uL Eos # (Auto) (0-450) /uL Baso # (Auto) (0-100) /uL ABG pH (7.35-7.45) ABG pCO2 (35-45) mmHg ABG pO2 (80-100) mmHg ABG HCO3 (23-27) mmol/L ABG Total CO2 (23-27) mmol/L ABG O2 Saturation (95-100) % ABG Base Excess (-2-3) mmol/L FiO2 Sodium (137-145) mmol/L Potassium (3.4-5.1) mmol/L Chloride (98-107) mmol/L Carbon Dioxide (22-32) mmol/L BUN (9-20) mg/dL Creatinine (0.66-1.25) mg/dL Estimated GFR (>60) mL/min BUN/Creatinine Ratio (6-22) Glucose (80-110) mg/dL Lactate (0.7-2.1) mmol/L Calcium (8.4-10.2) mg/dL Phosphorus (2.3-3.7) mg/dL Magnesium (1.6-2.3) mg/dL Total Bilirubin (0.2-1.3) mg/dL AST (17-59) IU/L ALT (<50) IU/L Alkaline Phosphatase (38-126) U/L Total Creatine Kinase (55-170) U/L CK-MB (CK-2) CK-MB (CK-2) Rel Index Troponin I (0.01-0.034) ng/mL NT-Pro-B Natriuret Pep (<125) pg/mL Total Protein (6.3-8.2) g/dL Albumin (3.5-5.0) g/dL Globulin (1.7-4.1) g/dL Albumin/Globulin Ratio (1.0-2.8) Lipase (23-300) U/L Procalcitonin (<0.5) ng/mL Nasal Screen MRSA (PCR) (Not Detect) Vancomycin Peak 24.1 (20-40) ug/mL Vancomycin Trough (10-20) ug/mL SARS-CoV-2 (PCR) (Negative) Influenza A (RT-PCR) (NEGATIVE) Influenza B (RT-PCR) (NEGATIVE) RSV (PCR) (Negative) Urine Dip Bedside Urine Glucose Negative Bedside Urine Bilirubin - Negative Bedside Urine Ketone - Negative Urine Specific [place] 1.015 Bedside Urine Occult Blood - Negative Bedside Urine pH 7.5 Bedside Urine Protein - Negative Bedside Urine Urobilinogen - Negative Bedside Urine Nitrite - Negative Bedside Urine Leukocytes - Negative Esterase MDM Narrative Medical decision making narrative: 71-year-old male with past medical history hypertension presents to the ED with 2 weeks of cough, sputum, chest tightness. Concern for URI versus ACS versus pneumonia versus congestive heart failure versus hypertension versus other. Will obtain EKG, chest x-ray, labs, troponin, BNP. Will reassess. EKG without acute ST-T changes. Chest x-ray shows chronic interstitial lung disease versus viral pneumonitis. Potassium low at 2.1. CO2 elevated to 44. Troponin elevated to 0.046. WBC elevated to 17. Urine without UTI. Cardiology was consulted regarding the troponin rise. Dr. Preston suspects that the troponin rise is more related to patient's pulmonary issues, which could be possibly COPD versus ILD versus pneumonitis vs other. He recommends getting an echo, stress test, serial troponins, no strong indication for heparin. Repeat troponin was 0.053. No EKG changes noted on repeat EKG. Potassium was repleted with 40 p.o. and 40 IV, IV fluids. Repeat potassium was 2.7. ABG was obtained which shows metabolic alkalosis. Patient was given aspirin 324. Patient's SpO2 hovered between 90 and 92, sometimes dipping to 88. A CT PE was obtained to rule out PE. The CT showed no pulmonary embolism, however shows possible postobstructive pneumonitis versus neoplasm. Patient also treated like a COPD exacerbation with prednisone, azithromycin, Rocephin. No albuterol at this time, given the hypokalemia. Patient was discussed with Dr. Jessica Simon, and hospitalist Dr. Storey and the consensus was to find a outside facility to transfer the patient to that has pulmonology. Patient's antibiotic coverage broadened with vancomycin and Zosyn. Patient signed out to Dr. Jessica Simon. 930pm Care is accepted. Patient is independently reviewed and labs and studies reviewed. In short, 71-year-old gentleman with increasing cough CT scan suggests mediastinal and right hilar adenopathy suspicious for neoplasm with right lower lung abnormalities that likely are postobstructive pneumonia. Patient does have a significant white count at 17.7 was initially started on ceftriaxone and azithromycin which was broadened to cefepime and vancomycin once CT scan was reviewed. He is mildly hypoxic and oxygen is in place with goal to keep sats 90-94%. Lactic acid is not elevated and he is not hypotensive. Slightly elevated transaminases. Mild bump in troponin that seems to be stabilizing in his likely reaction to work of breathing and pulmonary source rather than NSTEMI. EKG does not suggest acute ischemia or STEMI. Currently needing min imal ventilatory support and is feeling significantly improved. Blood pressure is dramatically elevated and has been as an outpatient as well. There had been an extended period of time he was not taking his losartan and that was restarted along with the addition of amlodipine about a week ago. He was given these medications this morning will give him a 2nd dose this evening as systolics were consistently above 200. We are looking for bed availability with pulmonary inpatient consultation micah hopkins. At this point is not an ICU candidate and I do not anticipate need for advanced oxygen such as high-flow CPAP or intubation was in the next 24 hours. Patient understands findings, concerns on CT scan and reasons for transfer. Patient is appropriately upset over diagnosis and inability to transfer. With shared decision-making we opted to treat with 5 mg of oral diazepam for this evening. Multiple hospitals have been contacted and currently beds are not immediately available. Will continue working on availablilty 10pm discussed with [facility] transfer center Dr cali: Received turned over. Reviewed patient's history and physical exam and workup. Over today the patient has been very stable. Has had occasional episodes where he is become hypoxic requiring oxygen by nasal cannula. His potassium continues to be low and it has been repleted. We will repeat a chemistry and a magnesium. Antibiotics have been continued. Throughout the day there has been no bed availability. Care turned over to Dr. Emery to continue to observe until disposition can be met. <Caitlin Emery, DO - Last Filed: 08/27/22 22:13> Lab Data Labs: Lab Results 08/24/22 08/24/22 08/24/22 Range/Units 12:14 14:27 14:27 WBC 17.7 H (4.5-11.0) X10^3/uL RBC 5.73 (4.5-5.9) X10^6/uL Hgb 17.2 (13.5-17.5) g/dL Hct 51.3 (41-53) % MCV 89.5 (80-100) fL MCH 30.0 (26-34) PG MCHC 33.6 (30-36) % RDW 14.3 (11.6-14.8) % Plt Count 220 (150-400) X10^3/uL Neut % (Auto) 87.1 H (50-75) % Lymph % (Auto) 6.1 L (25-40) % [place] % (Auto) 6.1 (3-14) % Eos % (Auto) 0.2 L (2-4) % Baso % (Auto) 0.5 (0-2) % Neut # (Auto) 39850 H (2478-7380) /uL Lymph # (Auto) 1100 (8675-7576) /uL [place] # (Auto) 1100 H (0-900) /uL Eos # (Auto) 0 (0-450) /uL Baso # (Auto) 100 (0-100) /uL ABG pH (7.35-7.45) ABG pCO2 (35-45) mmHg ABG pO2 (80-100) mmHg ABG HCO3 (23-27) mmol/L ABG Total CO2 (23-27) mmol/L ABG O2 Saturation (95-100) % ABG Base Excess (-2-3) mmol/L FiO2 Sodium 139 (137-145) mmol/L Potassium 2.1 L* (3.4-5.1) mmol/L Chloride 90 L (98-107) mmol/L Carbon Dioxide 44 H* (22-32) mmol/L BUN 17 (9-20) mg/dL Creatinine 0.72 (0.66-1.25) mg/dL Estimated GFR > 60 (>60) mL/min BUN/Creatinine Ratio 23.6 H (6-22) Glucose 141 H (80-110) mg/dL Lactate (0.7-2.1) mmol/L Calcium 8.9 (8.4-10.2) mg/dL Phosphorus (2.3-3.7) mg/dL Magnesium (1.6-2.3) mg/dL Total Bilirubin 0.9 (0.2-1.3) mg/dL AST 63 H (17-59) IU/L ALT 169 H (<50) IU/L Alkaline Phosphatase 98 (38-126) U/L Total Creatine Kinase 31 L (55-170) U/L CK-MB (CK-2) TNP CK-MB (CK-2) Rel Index TNP Troponin I 0.046 H (0.01-0.034) ng/mL NT-Pro-B Natriuret Pep 401 H (<125) pg/mL Total Protein 7.2 (6.3-8.2) g/dL Albumin 3.6 (3.5-5.0) g/dL Globulin 3.6 (1.7-4.1) g/dL Albumin/Globulin Ratio 1.0 (1.0-2.8) Lipase 173 (23-300) U/L Procalcitonin (<0.5) ng/mL Nasal Screen MRSA (PCR) (Not Detect) Vancomycin Peak (20-40) ug/mL Vancomycin Trough (10-20) ug/mL SARS-CoV-2 (PCR) Negative (Negative) Influenza A (RT-PCR) Flu a negative (NEGATIVE) Influenza B (RT-PCR) Flu b negative (NEGATIVE) RSV (PCR) Negative (Negative) 08/24/22 08/24/22 08/24/22 Range/Units 14:27 16:27 16:41 WBC (4.5-11.0) X10^3/uL RBC (4.5-5.9) X10^6/uL Hgb (13.5-17.5) g/dL Hct (41-53) % MCV (80-100) fL MCH (26-34) PG MCHC (30-36) % RDW (11.6-14.8) % Plt Count (150-400) X10^3/uL Neut % (Auto) (50-75) % Lymph % (Auto) (25-40) % [place] % (Auto) (3-14) % Eos % (Auto) (2-4) % Baso % (Auto) (0-2) % Neut # (Auto) (0519-4598) /uL Lymph # (Auto) (1071-0328) /uL [place] # (Auto) (0-900) /uL Eos # (Auto) (0-450) /uL Baso # (Auto) (0-100) /uL ABG pH 7.53 H (7.35-7.45) ABG pCO2 52.0 H (35-45) mmHg ABG pO2 54 L (80-100) mmHg ABG HCO3 44 H (23-27) mmol/L ABG Total CO2 45 H (23-27) mmol/L ABG O2 Saturation 90 L (95-100) % ABG Base Excess 21.0 H (-2-3) mmol/L FiO2 24 Sodium (137-145) mmol/L Potassium (3.4-5.1) mmol/L Chloride (98-107) mmol/L Carbon Dioxide (22-32) mmol/L BUN (9-20) mg/dL Creatinine (0.66-1.25) mg/dL Estimated GFR (>60) mL/min BUN/Creatinine Ratio (6-22) Glucose (80-110) mg/dL Lactate (0.7-2.1) mmol/L Calcium (8.4-10.2) mg/dL Phosphorus (2.3-3.7) mg/dL Magnesium 2.1 (1.6-2.3) mg/dL Total Bilirubin (0.2-1.3) mg/dL AST (17-59) IU/L ALT (<50) IU/L Alkaline Phosphatase (38-126) U/L Total Creatine Kinase 29 L (55-170) U/L CK-MB (CK-2) TNP CK-MB (CK-2) Rel Index TNP Troponin I 0.053 H (0.01-0.034) ng/mL NT-Pro-B Natriuret Pep (<125) pg/mL Total Protein (6.3-8.2) g/dL Albumin (3.5-5.0) g/dL Globulin (1.7-4.1) g/dL Albumin/Globulin Ratio (1.0-2.8) Lipase (23-300) U/L Procalcitonin (<0.5) ng/mL Nasal Screen MRSA (PCR) (Not Detect) Vancomycin Peak (20-40) ug/mL Vancomycin Trough (10-20) ug/mL SARS-CoV-2 (PCR) (Negative) Influenza A (RT-PCR) (NEGATIVE) Influenza B (RT-PCR) (NEGATIVE) RSV (PCR) (Negative) 08/24/22 08/24/22 08/24/22 Range/Units 18:03 18:03 19:55 WBC (4.5-11.0) X10^3/uL RBC (4.5-5.9) X10^6/uL Hgb (13.5-17.5) g/dL Hct (41-53) % MCV (80-100) fL MCH (26-34) PG MCHC (30-36) % RDW (11.6-14.8) % Plt Count (150-400) X10^3/uL Neut % (Auto) (50-75) % Lymph % (Auto) (25-40) % [place] % (Auto) (3-14) % Eos % (Auto) (2-4) % Baso % (Auto) (0-2) % Neut # (Auto) (2983-2950) /uL Lymph # (Auto) (5013-9271) /uL [place] # (Auto) (0-900) /uL Eos # (Auto) (0-450) /uL Baso # (Auto) (0-100) /uL ABG pH (7.35-7.45) ABG pCO2 (35-45) mmHg ABG pO2 (80-100) mmHg ABG HCO3 (23-27) mmol/L ABG Total CO2 (23-27) mmol/L ABG O2 Saturation (95-100) % ABG Base Excess (-2-3) mmol/L FiO2 Sodium 139 (137-145) mmol/L Potassium 2.7 L* (3.4-5.1) mmol/L Chloride 90 L (98-107) mmol/L Carbon Dioxide 40 H* (22-32) mmol/L BUN 16 (9-20) mg/dL Creatinine 0.67 (0.66-1.25) mg/dL Estimated GFR > 60 (>60) mL/min BUN/Creatinine Ratio 23.9 H (6-22) Glucose 147 H (80-110) mg/dL Lactate (0.7-2.1) mmol/L Calcium 8.9 (8.4-10.2) mg/dL Phosphorus 2.4 (2.3-3.7) mg/dL Magnesium 2.1 (1.6-2.3) mg/dL Total Bilirubin 1.0 (0.2-1.3) mg/dL AST 67 H (17-59) IU/L ALT 166 H (<50) IU/L Alkaline Phosphatase 105 (38-126) U/L Total Creatine Kinase (55-170) U/L CK-MB (CK-2) CK-MB (CK-2) Rel Index Troponin I 0.054 H (0.01-0.034) ng/mL NT-Pro-B Natriuret Pep (<125) pg/mL Total Protein 7.4 (6.3-8.2) g/dL Albumin 3.7 (3.5-5.0) g/dL Globulin 3.7 (1.7-4.1) g/dL Albumin/Globulin Ratio 1.0 (1.0-2.8) Lipase (23-300) U/L Procalcitonin 0.43 (<0.5) ng/mL Nasal Screen MRSA (PCR) (Not Detect) Vancomycin Peak (20-40) ug/mL Vancomycin Trough (10-20) ug/mL SARS-CoV-2 (PCR) (Negative) Influenza A (RT-PCR) (NEGATIVE) Influenza B (RT-PCR) (NEGATIVE) RSV (PCR) (Negative) 08/24/22 08/25/22 08/25/22 Range/Units 19:55 07:30 07:30 WBC 14.6 H (4.5-11.0) X10^3/uL RBC 5.53 (4.5-5.9) X10^6/uL Hgb 16.7 (13.5-17.5) g/dL Hct 49.6 (41-53) % MCV 89.6 (80-100) fL MCH 30.2 (26-34) PG MCHC 33.7 (30-36) % RDW 14.3 (11.6-14.8) % Plt Count 216 (150-400) X10^3/uL Neut % (Auto) 84.7 H (50-75) % Lymph % (Auto) 9.8 L (25-40) % [place] % (Auto) 5.1 (3-14) % Eos % (Auto) 0.0 L (2-4) % Baso % (Auto) 0.4 (0-2) % Neut # (Auto) 39257 H (9202-5125) /uL Lymph # (Auto) 1400 (5556-7118) /uL [place] # (Auto) 700 (0-900) /uL Eos # (Auto) 0 (0-450) /uL Baso # (Auto) 100 (0-100) /uL ABG pH (7.35-7.45) ABG pCO2 (35-45) mmHg ABG pO2 (80-100) mmHg ABG HCO3 (23-27) mmol/L ABG Total CO2 (23-27) mmol/L ABG O2 Saturation (95-100) % ABG Base Excess (-2-3) mmol/L FiO2 Sodium 140 (137-145) mmol/L Potassium 2.6 L* (3.4-5.1) mmol/L Chloride 93 L (98-107) mmol/L Carbon Dioxide 43 H* (22-32) mmol/L BUN 20 (9-20) mg/dL Creatinine 0.67 (0.66-1.25) mg/dL Estimated GFR > 60 (>60) mL/min BUN/Creatinine Ratio 29.9 H (6-22) Glucose 129 H (80-110) mg/dL Lactate 1.2 (0.7-2.1) mmol/L Calcium 8.7 (8.4-10.2) mg/dL Phosphorus (2.3-3.7) mg/dL Magnesium (1.6-2.3) mg/dL Total Bilirubin 0.9 (0.2-1.3) mg/dL AST 51 (17-59) IU/L ALT 142 H (<50) IU/L Alkaline Phosphatase 87 (38-126) U/L Total Creatine Kinase (55-170) U/L CK-MB (CK-2) CK-MB (CK-2) Rel Index Troponin I (0.01-0.034) ng/mL NT-Pro-B Natriuret Pep (<125) pg/mL Total Protein 7.1 (6.3-8.2) g/dL Albumin 3.6 (3.5-5.0) g/dL Globulin 3.5 (1.7-4.1) g/dL Albumin/Globulin Ratio 1.0 (1.0-2.8) Lipase (23-300) U/L Procalcitonin (<0.5) ng/mL Nasal Screen MRSA (PCR) (Not Detect) Vancomycin Peak (20-40) ug/mL Vancomycin Trough (10-20) ug/mL SARS-CoV-2 (PCR) (Negative) Influenza A (RT-PCR) (NEGATIVE) Influenza B (RT-PCR) (NEGATIVE) RSV (PCR) (Negative) 08/25/22 08/25/22 08/26/22 Range/Units 18:40 19:50 03:55 WBC 19.6 H (4.5-11.0) X10^3/uL RBC 5.23 (4.5-5.9) X10^6/uL Hgb 15.7 (13.5-17.5) g/dL Hct 47.1 (41-53) % MCV 90.1 (80-100) fL MCH 30.1 (26-34) PG MCHC 33.4 (30-36) % RDW 14.2 (11.6-14.8) % Plt Count 222 (150-400) X10^3/uL Neut % (Auto) 88.3 H (50-75) % Lymph % (Auto) 6.4 L (25-40) % [place] % (Auto) 4.9 (3-14) % Eos % (Auto) 0.0 L (2-4) % Baso % (Auto) 0.4 (0-2) % Neut # (Auto) 79156 H (9860-1230) /uL Lymph # (Auto) 1300 (2524-2915) /uL [place] # (Auto) 1000 H (0-900) /uL Eos # (Auto) 0 (0-450) /uL Baso # (Auto) 100 (0-100) /uL ABG pH (7.35-7.45) ABG pCO2 (35-45) mmHg ABG pO2 (80-100) mmHg ABG HCO3 (23-27) mmol/L ABG Total CO2 (23-27) mmol/L ABG O2 Saturation (95-100) % ABG Base Excess (-2-3) mmol/L FiO2 Sodium 139 (137-145) mmol/L Potassium 2.3 L* (3.4-5.1) mmol/L Chloride 95 L (98-107) mmol/L Carbon Dioxide 37 H (22-32) mmol/L BUN 22 H (9-20) mg/dL Creatinine 0.69 (0.66-1.25) mg/dL Estimated GFR > 60 (>60) mL/min BUN/Creatinine Ratio 31.9 H (6-22) Glucose 163 H (80-110) mg/dL Lactate (0.7-2.1) mmol/L Calcium 8.5 (8.4-10.2) mg/dL Phosphorus (2.3-3.7) mg/dL Magnesium 2.0 (1.6-2.3) mg/dL Total Bilirubin (0.2-1.3) mg/dL AST (17-59) IU/L ALT (<50) IU/L Alkaline Phosphatase (38-126) U/L Total Creatine Kinase (55-170) U/L CK-MB (CK-2) CK-MB (CK-2) Rel Index Troponin I (0.01-0.034) ng/mL NT-Pro-B Natriuret Pep (<125) pg/mL Total Protein (6.3-8.2) g/dL Albumin (3.5-5.0) g/dL Globulin (1.7-4.1) g/dL Albumin/Globulin Ratio (1.0-2.8) Lipase (23-300) U/L Procalcitonin (<0.5) ng/mL Nasal Screen MRSA (PCR) Not detected (Not Detect) Vancomycin Peak (20-40) ug/mL Vancomycin Trough (10-20) ug/mL SARS-CoV-2 (PCR) (Negative) Influenza A (RT-PCR) (NEGATIVE) Influenza B (RT-PCR) (NEGATIVE) RSV (PCR) (Negative) 08/26/22 08/26/22 08/26/22 Range/Units 03:55 03:55 17:38 WBC (4.5-11.0) X10^3/uL RBC (4.5-5.9) X10^6/uL Hgb (13.5-17.5) g/dL Hct (41-53) % MCV (80-100) fL MCH (26-34) PG MCHC (30-36) % RDW (11.6-14.8) % Plt Count (150-400) X10^3/uL Neut % (Auto) (50-75) % Lymph % (Auto) (25-40) % [place] % (Auto) (3-14) % Eos % (Auto) (2-4) % Baso % (Auto) (0-2) % Neut # (Auto) (0195-2818) /uL Lymph # (Auto) (5446-0403) /uL [place] # (Auto) (0-900) /uL Eos # (Auto) (0-450) /uL Baso # (Auto) (0-100) /uL ABG pH (7.35-7.45) ABG pCO2 (35-45) mmHg ABG pO2 (80-100) mmHg ABG HCO3 (23-27) mmol/L ABG Total CO2 (23-27) mmol/L ABG O2 Saturation (95-100) % ABG Base Excess (-2-3) mmol/L FiO2 Sodium 139 141 (137-145) mmol/L Potassium 3.2 L 2.6 L* (3.4-5.1) mmol/L Chloride 97 L 96 L (98-107) mmol/L Carbon Dioxide 39 H 39 H (22-32) mmol/L BUN 18 22 H (9-20) mg/dL Creatinine 0.60 L 0.69 (0.66-1.25) mg/dL Estimated GFR > 60 > 60 (>60) mL/min BUN/Creatinine Ratio 30.0 H 31.9 H (6-22) Glucose 151 H 132 H (80-110) mg/dL Lactate (0.7-2.1) mmol/L Calcium 8.6 8.7 (8.4-10.2) mg/dL Phosphorus (2.3-3.7) mg/dL Magnesium (1.6-2.3) mg/dL Total Bilirubin (0.2-1.3) mg/dL AST (17-59) IU/L ALT (<50) IU/L Alkaline Phosphatase (38-126) U/L Total Creatine Kinase (55-170) U/L CK-MB (CK-2) CK-MB (CK-2) Rel Index Troponin I (0.01-0.034) ng/mL NT-Pro-B Natriuret Pep (<125) pg/mL Total Protein (6.3-8.2) g/dL Albumin (3.5-5.0) g/dL Globulin (1.7-4.1) g/dL Albumin/Globulin Ratio (1.0-2.8) Lipase (23-300) U/L Procalcitonin 0.39 (<0.5) ng/mL Nasal Screen MRSA (PCR) (Not Detect) Vancomycin Peak (20-40) ug/mL Vancomycin Trough (10-20) ug/mL SARS-CoV-2 (PCR) (Negative) Influenza A (RT-PCR) (NEGATIVE) Influenza B (RT-PCR) (NEGATIVE) RSV (PCR) (Negative) 08/27/22 08/27/22 08/27/22 Range/Units 06:15 06:15 06:15 WBC 13.9 H (4.5-11.0) X10^3/uL RBC 4.79 (4.5-5.9) X10^6/uL Hgb 14.5 (13.5-17.5) g/dL Hct 42.8 (41-53) % MCV 89.4 (80-100) fL MCH 30.3 (26-34) PG MCHC 33.9 (30-36) % RDW 13.9 (11.6-14.8) % Plt Count 189 (150-400) X10^3/uL Neut % (Auto) 87.8 H (50-75) % Lymph % (Auto) 7.5 L (25-40) % [place] % (Auto) 4.5 (3-14) % Eos % (Auto) 0.0 L (2-4) % Baso % (Auto) 0.2 (0-2) % Neut # (Auto) 35980 H (5680-9684) /uL Lymph # (Auto) 1000 L (5591-4747) /uL [place] # (Auto) 600 (0-900) /uL Eos # (Auto) 0 (0-450) /uL Baso # (Auto) 0 (0-100) /uL ABG pH (7.35-7.45) ABG pCO2 (35-45) mmHg ABG pO2 (80-100) mmHg ABG HCO3 (23-27) mmol/L ABG Total CO2 (23-27) mmol/L ABG O2 Saturation (95-100) % ABG Base Excess (-2-3) mmol/L FiO2 Sodium 140 (137-145) mmol/L Potassium 3.2 L (3.4-5.1) mmol/L Chloride 101 (98-107) mmol/L Carbon Dioxide 38 H (22-32) mmol/L BUN 23 H (9-20) mg/dL Creatinine 0.66 (0.66-1.25) mg/dL Estimated GFR > 60 (>60) mL/min BUN/Creatinine Ratio 34.8 H (6-22) Glucose 135 H (80-110) mg/dL Lactate (0.7-2.1) mmol/L Calcium 8.3 L (8.4-10.2) mg/dL Phosphorus (2.3-3.7) mg/dL Magnesium (1.6-2.3) mg/dL Total Bilirubin (0.2-1.3) mg/dL AST (17-59) IU/L ALT (<50) IU/L Alkaline Phosphatase (38-126) U/L Total Creatine Kinase (55-170) U/L CK-MB (CK-2) CK-MB (CK-2) Rel Index Troponin I (0.01-0.034) ng/mL NT-Pro-B Natriuret Pep (<125) pg/mL Total Protein (6.3-8.2) g/dL Albumin (3.5-5.0) g/dL Globulin (1.7-4.1) g/dL Albumin/Globulin Ratio (1.0-2.8) Lipase (23-300) U/L Procalcitonin (<0.5) ng/mL Nasal Screen MRSA (PCR) (Not Detect) Vancomycin Peak (20-40) ug/mL Vancomycin Trough 9.4 L (10-20) ug/mL SARS-CoV-2 (PCR) (Negative) Influenza A (RT-PCR) (NEGATIVE) Influenza B (RT-PCR) (NEGATIVE) RSV (PCR) (Negative) 08/27/22 Range/Units 10:35 WBC (4.5-11.0) X10^3/uL RBC (4.5-5.9) X10^6/uL Hgb (13.5-17.5) g/dL Hct (41-53) % MCV (80-100) fL MCH (26-34) PG MCHC (30-36) % RDW (11.6-14.8) % Plt Count (150-400) X10^3/uL Neut % (Auto) (50-75) % Lymph % (Auto) (25-40) % [place] % (Auto) (3-14) % Eos % (Auto) (2-4) % Baso % (Auto) (0-2) % Neut # (Auto) (5098-0756) /uL Lymph # (Auto) (1900-4013) /uL [place] # (Auto) (0-900) /uL Eos # (Auto) (0-450) /uL Baso # (Auto) (0-100) /uL ABG pH (7.35-7.45) ABG pCO2 (35-45) mmHg ABG pO2 (80-100) mmHg ABG HCO3 (23-27) mmol/L ABG Total CO2 (23-27) mmol/L ABG O2 Saturation (95-100) % ABG Base Excess (-2-3) mmol/L FiO2 Sodium (137-145) mmol/L Potassium (3.4-5.1) mmol/L Chloride (98-107) mmol/L Carbon Dioxide (22-32) mmol/L BUN (9-20) mg/dL Creatinine (0.66-1.25) mg/dL Estimated GFR (>60) mL/min BUN/Creatinine Ratio (6-22) Glucose (80-110) mg/dL Lactate (0.7-2.1) mmol/L Calcium (8.4-10.2) mg/dL Phosphorus (2.3-3.7) mg/dL Magnesium (1.6-2.3) mg/dL Total Bilirubin (0.2-1.3) mg/dL AST (17-59) IU/L ALT (<50) IU/L Alkaline Phosphatase (38-126) U/L Total Creatine Kinase (55-170) U/L CK-MB (CK-2) CK-MB (CK-2) Rel Index Troponin I (0.01-0.034) ng/mL NT-Pro-B Natriuret Pep (<125) pg/mL Total Protein (6.3-8.2) g/dL Albumin (3.5-5.0) g/dL Globulin (1.7-4.1) g/dL Albumin/Globulin Ratio (1.0-2.8) Lipase (23-300) U/L Procalcitonin (<0.5) ng/mL Nasal Screen MRSA (PCR) (Not Detect) Vancomycin Peak 24.1 (20-40) ug/mL Vancomycin Trough (10-20) ug/mL SARS-CoV-2 (PCR) (Negative) Influenza A (RT-PCR) (NEGATIVE) Influenza B (RT-PCR) (NEGATIVE) RSV (PCR) (Negative) Urine Dip Bedside Urine Glucose Negative Bedside Urine Bilirubin - Negative Bedside Urine Ketone - Negative Urine Specific [place] 1.015 Bedside Urine Occult Blood - Negative Bedside Urine pH 7.5 Bedside Urine Protein - Negative Bedside Urine Urobilinogen - Negative Bedside Urine Nitrite - Negative Bedside Urine Leukocytes - Negative Esterase MDM Narrative Medical decision making narrative: 71-year-old male with past medical history hypertension presents to the ED with 2 weeks of cough, sputum, chest tightness. Concern for URI versus ACS versus pneumonia versus congestive heart failure versus hypertension versus other. Will obtain EKG, chest x-ray, labs, troponin, BNP. Will reassess. EKG without acute ST-T changes. Chest x-ray shows chronic interstitial lung disease versus viral pneumonitis. Potassium low at 2.1. CO2 elevated to 44. Troponin elevated to 0.046. WBC elevated to 17. Urine without UTI. Cardiology was consulted regarding the troponin rise. Dr. Preston suspects that the troponin rise is more related to patient's pulmonary issues, which could be possibly COPD versus ILD versus pneumonitis vs other. He recommends getting an echo, stress test, serial troponins, no strong indication for heparin. Repeat troponin was 0.053. No EKG changes noted on repeat EKG. Potassium was repleted with 40 p.o. and 40 IV, IV fluids. Repeat potassium was 2.7. ABG was obtained which shows metabolic alkalosis. Patient was given aspirin 324. P atient's SpO2 hovered between 90 and 92, sometimes dipping to 88. A CT PE was obtained to rule out PE. The CT showed no pulmonary embolism, however shows possible postobstructive pneumonitis versus neoplasm. Patient also treated like a COPD exacerbation with prednisone, azithromycin, Rocephin. No albuterol at this time, given the hypokalemia. Patient was discussed with Dr. Jessica Simon, and hospitalist Dr. Storey and the consensus was to find a outside facility to transfer the patient to that has pulmonology. Patient's antibiotic coverage broadened with vancomycin and Zosyn. Patient signed out to Dr. Jessica Simon. 930pm Care is accepted. Patient is independently reviewed and labs and studies reviewed. In short, 71-year-old gentleman with increasing cough CT scan suggests me diastinal and right hilar adenopathy suspicious for neoplasm with right lower lung abnormalities that likely are postobstructive pneumonia. Patient does have a significant white count at 17.7 was initially started on ceftriaxone and azithromycin which was broadened to cefepime and vancomycin once CT scan was reviewed. He is mildly hypoxic and oxygen is in place with goal to keep sats 90-94%. Lactic acid is not elevated and he is not hypotensive. Slightly elevated transaminases. Mild bump in troponin that seems to be stabilizing in his likely reaction to work of breathing and pulmonary source rather than NSTEMI. EKG does not suggest acute ischemia or STEMI. Currently needing minimal ventilatory support and is feeling significantly improved. Blood pressure is dramatically elevated and has been as an outpatient as well. There had been an extended period of time he was not taking his losartan and that was restarted along with the addition of amlodipine about a week ago. He was given these medications this morning will give him a 2nd dose this evening as systolics were consistently above 200. We are looking for bed availability with pulmonary inpatient consultation available. At this point is not an ICU candidate and I do not anticipate need for advanced oxygen such as high-flow CPAP or intubation was in the next 24 hours. Patient understands findings, concerns on CT scan and reasons for transfer. Patient is appropriately upset over diagnosis and inability to transfer. With shared decision-making we opted to treat with 5 mg of oral diazepam for this evening. Multiple hospitals have been contacted and currently beds are not immediately available. Will continue working on availablilty 10pm discussed with [facility] transfer center Dr cali: Received turned over. Reviewed patient's history and physical exam and workup. Over today the patient has been very stable. Has had occasional episodes where he is become hypoxic requiring oxygen by nasal cannula. His potassium continues to be low and it has been repleted. We will repeat a chemistry and a magnesium. Antibiotics have been continued. Throughout the day there has been no bed availability. Care turned over to Dr. Emery to continue to observe until disposition can be met. Dr. Emery: Received sign-out from Dr. Cali. Patient is 71-year-old male awaiting placement for postobstructive pneumonia. Mildly hypoxic requiring 1-2 L of oxygen without evidence of severe sepsis, significant hypokalemia of unknown origin, indeterminate troponins with a normal echocardiogram, currently awaiting placement for bronchoscopy. Hospitalist was consulted yesterday for admission he did speak to a curve saw operator who recommended transferring to higher level of care. Patient has now been in the emergency department for over 30 hours awaiting placement on multiple list no significant movement. He has been receiving cefepime and vancomycin. He received Valium at night to help him sleep which he is requesting now. Daughter thinks he is having some mild hallucinations. The patient signed out to Dr. Honorio Olemdo: August 26, 2022 at 7:00 a.m. I received sign-out from Dr Emery, we need to try to reach out to configuration management consultant to see if need urgent bronchoscopy. Medications have been automated. No new issues overnight. Dr. Emery-received sign-out from Dr. Campbell. Patient has continuous hypokalemia despite p.o. replacement. He has been up to the restroom urinating is not hypoxic will ambulating but while sleeping dips down to 80%. Blood work is overall improving, except for the hypokalemia. Dr. Olmedo spoke with pulmonology who states the patient can likely be treated with antibiotics however patient was still not admitted here to this hospital. Still awaiting bronchoscopy. Patient signed out to Dr. Cabral 08/27/22 [facility] 0806: Patient signed out to myself by Dr. Emery. Patient seen and independently evaluated. He states he is feeling much improved today he is on 1-2 L currently and is eating breakfast. Patient had developed postobstructive pneumonia with plan for transfer for bronch and possibly thoracic surgery for sample. Patient labs show improving leukocytosis at 13, patient has been persistently hypokalemic and requiring replacement. Renal function appropriate BUN 23. Patient does not have any other complaints or concerns currently. Plan for repeat chest x-ray. Patient's medications were also increased his amlodipine was increased last night to 10 mg from 5 any had Coreg added as his diastolic pressure was quite elevated. Patient is currently on vancomycin and cefepime. Echo showed no acute changes with an EF of 65%. Spoke with Dr. Machado at [facility], hospitalist. Reviewed patient's history, treatments thus far, labs, echo and she accepts for transfer she asked if we can speak with pulmonology as needed. Discussed happy to do so. She may also speak with them. Transfer center called back and stated patient is acce pted and bed is available and can set up transport. <He Olmedo MD - Last Filed: 09/08/22 12:06> Lab Data Labs: Lab Results 08/24/22 08/24/22 08/24/22 Range/Units 12:14 14:27 14:27 WBC 17.7 H (4.5-11.0) X10^3/uL RBC 5.73 (4.5-5.9) X10^6/uL Hgb 17.2 (13.5-17.5) g/dL Hct 51.3 (41-53) % MCV 89.5 (80-100) fL MCH 30.0 (26-34) PG MCHC 33.6 (30-36) % RDW 14.3 (11.6-14.8) % Plt Count 220 (150-400) X10^3/uL Neut % (Auto) 87.1 H (50-75) % Lymph % (Auto) 6.1 L (25-40) % [place] % (Auto) 6.1 (3-14) % Eos % (Auto) 0.2 L (2-4) % Baso % (Auto) 0.5 (0-2) % Neut # (Auto) 14446 H (3439-7543) /uL Lymph # (Auto) 1100 (5856-5851) /uL [place] # (Auto) 1100 H (0-900) /uL Eos # (Auto) 0 (0-450) /uL Baso # (Auto) 100 (0-100) /uL ABG pH (7.35-7.45) ABG pCO2 (35-45) mmHg ABG pO2 (80-100) mmHg ABG HCO3 (23-27) mmol/L ABG Total CO2 (23-27) mmol/L ABG O2 Saturation (95-100) % ABG Base Excess (-2-3) mmol/L FiO2 Sodium 139 (137-145) mmol/L Potassium 2.1 L* (3.4-5.1) mmol/L Chloride 90 L (98-107) mmol/L Carbon Dioxide 44 H* (22-32) mmol/L BUN 17 (9-20) mg/dL Creatinine 0.72 (0.66-1.25) mg/dL Estimated GFR > 60 (>60) mL/min BUN/Creatinine Ratio 23.6 H (6-22) Glucose 141 H (80-110) mg/dL Lactate (0.7-2.1) mmol/L Calcium 8.9 (8.4-10.2) mg/dL Phosphorus (2.3-3.7) mg/dL Magnesium (1.6-2.3) mg/dL Total Bilirubin 0.9 (0.2-1.3) mg/dL AST 63 H (17-59) IU/L ALT 169 H (<50) IU/L Alkaline Phosphatase 98 (38-126) U/L Total Creatine Kinase 31 L (55-170) U/L CK-MB (CK-2) TNP CK-MB (CK-2) Rel Index TNP Troponin I 0.046 H (0.01-0.034) ng/mL NT-Pro-B Natriuret Pep 401 H (<125) pg/mL Total Protein 7.2 (6.3-8.2) g/dL Albumin 3.6 (3.5-5.0) g/dL Globulin 3.6 (1.7-4.1) g/dL Albumin/Globulin Ratio 1.0 (1.0-2.8) Lipase 173 (23-300) U/L Procalcitonin (<0.5) ng/mL Nasal Screen MRSA (PCR) (Not Detect) Vancomycin Peak (20-40) ug/mL Vancomycin Trough (10-20) ug/mL SARS-CoV-2 (PCR) Negative (Negative) Influenza A (RT-PCR) Flu a negative (NEGATIVE) Influenza B (RT-PCR) Flu b negative (NEGATIVE) RSV (PCR) Negative (Negative) 08/24/22 08/24/22 08/24/22 Range/Units 14:27 16:27 16:41 WBC (4.5-11.0) X10^3/uL RBC (4.5-5.9) X10^6/uL Hgb (13.5-17.5) g/dL Hct (41-53) % MCV (80-100) fL MCH (26-34) PG MCHC (30-36) % RDW (11.6-14.8) % Plt Count (150-400) X10^3/uL Neut % (Auto) (50-75) % Lymph % (Auto) (25-40) % [place] % (Auto) (3-14) % Eos % (Auto) (2-4) % Baso % (Auto) (0-2) % Neut # (Auto) (0548-4441) /uL Lymph # (Auto) (4216-5112) /uL [place] # (Auto) (0-900) /uL Eos # (Auto) (0-450) /uL Baso # (Auto) (0-100) /uL ABG pH 7.53 H (7.35-7.45) ABG pCO2 52.0 H (35-45) mmHg ABG pO2 54 L (80-100) mmHg ABG HCO3 44 H (23-27) mmol/L ABG Total CO2 45 H (23-27) mmol/L ABG O2 Saturation 90 L (95-100) % ABG Base Excess 21.0 H (-2-3) mmol/L FiO2 24 Sodium (137-145) mmol/L Potassium (3.4-5.1) mmol/L Chloride (98-107) mmol/L Carbon Dioxide (22-32) mmol/L BUN (9-20) mg/dL Creatinine (0.66-1.25) mg/dL Estimated GFR (>60) mL/min BUN/Creatinine Ratio (6-22) Glucose (80-110) mg/dL Lactate (0.7-2.1) mmol/L Calcium (8.4-10.2) mg/dL Phosphorus (2.3-3.7) mg/dL Magnesium 2.1 (1.6-2.3) mg/dL Total Bilirubin (0.2-1.3) mg/dL AST (17-59) IU/L ALT (<50) IU/L Alkaline Phosphatase (38-126) U/L Total Creatine Kinase 29 L (55-170) U/L CK-MB (CK-2) TNP CK-MB (CK-2) Rel Index TNP Troponin I 0.053 H (0.01-0.034) ng/mL NT-Pro-B Natriuret Pep (<125) pg/mL Total Protein (6.3-8.2) g/dL Albumin (3.5-5.0) g/dL Globulin (1.7-4.1) g/dL Albumin/Globulin Ratio (1.0-2.8) Lipase (23-300) U/L Procalcitonin (<0.5) ng/mL Nasal Screen MRSA (PCR) (Not Detect) Vancomycin Peak (20-40) ug/mL Vancomycin Trough (10-20) ug/mL SARS-CoV-2 (PCR) (Negative) Influenza A (RT-PCR) (NEGATIVE) Influenza B (RT-PCR) (NEGATIVE) RSV (PCR) (Negative) 08/24/22 08/24/22 08/24/22 Range/Units 18:03 18:03 19:55 WBC (4.5-11.0) X10^3/uL RBC (4.5-5.9) X10^6/uL Hgb (13.5-17.5) g/dL Hct (41-53) % MCV (80-100) fL MCH (26-34) PG MCHC (30-36) % RDW (11.6-14.8) % Plt Count (150-400) X10^3/uL Neut % (Auto) (50-75) % Lymph % (Auto) (25-40) % [place] % (Auto) (3-14) % Eos % (Auto) (2-4) % Baso % (Auto) (0-2) % Neut # (Auto) (5169-5459) /uL Lymph # (Auto) (3190-8005) /uL [place] # (Auto) (0-900) /uL Eos # (Auto) (0-450) /uL Baso # (Auto) (0-100) /uL ABG pH (7.35-7.45) ABG pCO2 (35-45) mmHg ABG pO2 (80-100) mmHg ABG HCO3 (23-27) mmol/L ABG Total CO2 (23-27) mmol/L ABG O2 Saturation (95-100) % ABG Base Excess (-2-3) mmol/L FiO2 Sodium 139 (137-145) mmol/L Potassium 2.7 L* (3.4-5.1) mmol/L Chloride 90 L (98-107) mmol/L Carbon Dioxide 40 H* (22-32) mmol/L BUN 16 (9-20) mg/dL Creatinine 0.67 (0.66-1.25) mg/dL Estimated GFR > 60 (>60) mL/min BUN/Creatinine Ratio 23.9 H (6-22) Glucose 147 H (80-110) mg/dL Lactate (0.7-2.1) mmol/L Calcium 8.9 (8.4-10.2) mg/dL Phosphorus 2.4 (2.3-3.7) mg/dL Magnesium 2.1 (1.6-2.3) mg/dL Total Bilirubin 1.0 (0.2-1.3) mg/dL AST 67 H (17-59) IU/L ALT 166 H (<50) IU/L Alkaline Phosphatase 105 (38-126) U/L Total Creatine Kinase (55-170) U/L CK-MB (CK-2) CK-MB (CK-2) Rel Index Troponin I 0.054 H (0.01-0.034) ng/mL NT-Pro-B Natriuret Pep (<125) pg/mL Total Protein 7.4 (6.3-8.2) g/dL Albumin 3.7 (3.5-5.0) g/dL Globulin 3.7 (1.7-4.1) g/dL Albumin/Globulin Ratio 1.0 (1.0-2.8) Lipase (23-300) U/L Procalcitonin 0.43 (<0.5) ng/mL Nasal Screen MRSA (PCR) (Not Detect) Vancomycin Peak (20-40) ug/mL Vancomycin Trough (10-20) ug/mL SARS-CoV-2 (PCR) (Negative) Influenza A (RT-PCR) (NEGATIVE) Influenza B (RT-PCR) (NEGATIVE) RSV (PCR) (Negative) 04/17/23 04/18/23 04/18/23 Range/Units 19:55 07:30 07:30 WBC 14.6 H (4.5-11.0) X10^3/uL RBC 5.53 (4.5-5.9) X10^6/uL Hgb 16.7 (13.5-17.5) g/dL Hct 49.6 (41-53) % MCV 89.6 (80-100) fL MCH 30.2 (26-34) PG MCHC 33.7 (30-36) % RDW 14.3 (11.6-14.8) % Plt Count 216 (150-400) X10^3/uL Neut % (Auto) 84.7 H (50-75) % Lymph % (Auto) 9.8 L (25-40) % [place] % (Auto) 5.1 (3-14) % Eos % (Auto) 0.0 L (2-4) % Baso % (Auto) 0.4 (0-2) % Neut # (Auto) 68241 H (6427-8135) /uL Lymph # (Auto) 1400 (0085-9412) /uL [place] # (Auto) 700 (0-900) /uL Eos # (Auto) 0 (0-450) /uL Baso # (Auto) 100 (0-100) /uL ABG pH (7.35-7.45) ABG pCO2 (35-45) mmHg ABG pO2 (80-100) mmHg ABG HCO3 (23-27) mmol/L ABG Total CO2 (23-27) mmol/L ABG O2 Saturation (95-100) % ABG Base Excess (-2-3) mmol/L FiO2 Sodium 140 (137-145) mmol/L Potassium 2.6 L* (3.4-5.1) mmol/L Chloride 93 L (98-107) mmol/L Carbon Dioxide 43 H* (22-32) mmol/L BUN 20 (9-20) mg/dL Creatinine 0.67 (0.66-1.25) mg/dL Estimated GFR > 60 (>60) mL/min BUN/Creatinine Ratio 29.9 H (6-22) Glucose 129 H (80-110) mg/dL Lactate 1.2 (0.7-2.1) mmol/L Calcium 8.7 (8.4-10.2) mg/dL Phosphorus (2.3-3.7) mg/dL Magnesium (1.6-2.3) mg/dL Total Bilirubin 0.9 (0.2-1.3) mg/dL AST 51 (17-59) IU/L ALT 142 H (<50) IU/L Alkaline Phosphatase 87 (38-126) U/L Total Creatine Kinase (55-170) U/L CK-MB (CK-2) CK-MB (CK-2) Rel Index Troponin I (0.01-0.034) ng/mL NT-Pro-B Natriuret Pep (<125) pg/mL Total Protein 7.1 (6.3-8.2) g/dL Albumin 3.6 (3.5-5.0) g/dL Globulin 3.5 (1.7-4.1) g/dL Albumin/Globulin Ratio 1.0 (1.0-2.8) Lipase (23-300) U/L Procalcitonin (<0.5) ng/mL Nasal Screen MRSA (PCR) (Not Detect) Vancomycin Peak (20-40) ug/mL Vancomycin Trough (10-20) ug/mL SARS-CoV-2 (PCR) (Negative) Influenza A (RT-PCR) (NEGATIVE) Influenza B (RT-PCR) (NEGATIVE) RSV (PCR) (Negative) 08/25/22 08/25/22 08/26/22 Range/Units 18:40 19:50 03:55 WBC 19.6 H (4.5-11.0) X10^3/uL RBC 5.23 (4.5-5.9) X10^6/uL Hgb 15.7 (13.5-17.5) g/dL Hct 47.1 (41-53) % MCV 90.1 (80-100) fL MCH 30.1 (26-34) PG MCHC 33.4 (30-36) % RDW 14.2 (11.6-14.8) % Plt Count 222 (150-400) X10^3/uL Neut % (Auto) 88.3 H (50-75) % Lymph % (Auto) 6.4 L (25-40) % [place] % (Auto) 4.9 (3-14) % Eos % (Auto) 0.0 L (2-4) % Baso % (Auto) 0.4 (0-2) % Neut # (Auto) 32842 H (8210-1035) /uL Lymph # (Auto) 1300 (7267-8715) /uL [place] # (Auto) 1000 H (0-900) /uL Eos # (Auto) 0 (0-450) /uL Baso # (Auto) 100 (0-100) /uL ABG pH (7.35-7.45) ABG pCO2 (35-45) mmHg ABG pO2 (80-100) mmHg ABG HCO3 (23-27) mmol/L ABG Total CO2 (23-27) mmol/L ABG O2 Saturation (95-100) % ABG Base Excess (-2-3) mmol/L FiO2 Sodium 139 (137-145) mmol/L Potassium 2.3 L* (3.4-5.1) mmol/L Chloride 95 L (98-107) mmol/L Carbon Dioxide 37 H (22-32) mmol/L BUN 22 H (9-20) mg/dL Creatinine 0.69 (0.66-1.25) mg/dL Estimated GFR > 60 (>60) mL/min BUN/Creatinine Ratio 31.9 H (6-22) Glucose 163 H (80-110) mg/dL Lactate (0.7-2.1) mmol/L Calcium 8.5 (8.4-10.2) mg/dL Phosphorus (2.3-3.7) mg/dL Magnesium 2.0 (1.6-2.3) mg/dL Total Bilirubin (0.2-1.3) mg/dL AST (17-59) IU/L ALT (<50) IU/L Alkaline Phosphatase (38-126) U/L Total Creatine Kinase (55-170) U/L CK-MB (CK-2) CK-MB (CK-2) Rel Index Troponin I (0.01-0.034) ng/mL NT-Pro-B Natriuret Pep (<125) pg/mL Total Protein (6.3-8.2) g/dL Albumin (3.5-5.0) g/dL Globulin (1.7-4.1) g/dL Albumin/Globulin Ratio (1.0-2.8) Lipase (23-300) U/L Procalcitonin (<0.5) ng/mL Nasal Screen MRSA (PCR) Not detected (Not Detect) Vancomycin Peak (20-40) ug/mL Vancomycin Trough (10-20) ug/mL SARS-CoV-2 (PCR) (Negative) Influenza A (RT-PCR) (NEGATIVE) Influenza B (RT-PCR) (NEGATIVE) RSV (PCR) (Negative) 08/26/22 08/26/22 08/26/22 Range/Units 03:55 03:55 17:38 WBC (4.5-11.0) X10^3/uL RBC (4.5-5.9) X10^6/uL Hgb (13.5-17.5) g/dL Hct (41-53) % MCV (80-100) fL MCH (26-34) PG MCHC (30-36) % RDW (11.6-14.8) % Plt Count (150-400) X10^3/uL Neut % (Auto) (50-75) % Lymph % (Auto) (25-40) % [place] % (Auto) (3-14) % Eos % (Auto) (2-4) % Baso % (Auto) (0-2) % Neut # (Auto) (9465-1960) /uL Lymph # (Auto) (2289-0476) /uL [place] # (Auto) (0-900) /uL Eos # (Auto) (0-450) /uL Baso # (Auto) (0-100) /uL ABG pH (7.35-7.45) ABG pCO2 (35-45) mmHg ABG pO2 (80-100) mmHg ABG HCO3 (23-27) mmol/L ABG Total CO2 (23-27) mmol/L ABG O2 Saturation (95-100) % ABG Base Excess (-2-3) mmol/L FiO2 Sodium 139 141 (137-145) mmol/L Potassium 3.2 L 2.6 L* (3.4-5.1) mmol/L Chloride 97 L 96 L (98-107) mmol/L Carbon Dioxide 39 H 39 H (22-32) mmol/L BUN 18 22 H (9-20) mg/dL Creatinine 0.60 L 0.69 (0.66-1.25) mg/dL Estimated GFR > 60 > 60 (>60) mL/min BUN/Creatinine Ratio 30.0 H 31.9 H (6-22) Glucose 151 H 132 H (80-110) mg/dL Lactate (0.7-2.1) mmol/L Calcium 8.6 8.7 (8.4-10.2) mg/dL Phosphorus (2.3-3.7) mg/dL Magnesium (1.6-2.3) mg/dL Total Bilirubin (0.2-1.3) mg/dL AST (17-59) IU/L ALT (<50) IU/L Alkaline Phosphatase (38-126) U/L Total Creatine Kinase (55-170) U/L CK-MB (CK-2) CK-MB (CK-2) Rel Index Troponin I (0.01-0.034) ng/mL NT-Pro-B Natriuret Pep (<125) pg/mL Total Protein (6.3-8.2) g/dL Albumin (3.5-5.0) g/dL Globulin (1.7-4.1) g/dL Albumin/Globulin Ratio (1.0-2.8) Lipase (23-300) U/L Procalcitonin 0.39 (<0.5) ng/mL Nasal Screen MRSA (PCR) (Not Detect) Vancomycin Peak (20-40) ug/mL Vancomycin Trough (10-20) ug/mL SARS-CoV-2 (PCR) (Negative) Influenza A (RT-PCR) (NEGATIVE) Influenza B (RT-PCR) (NEGATIVE) RSV (PCR) (Negative) 08/27/22 08/27/22 08/27/22 Range/Units 06:15 06:15 06:15 WBC 13.9 H (4.5-11.0) X10^3/uL RBC 4.79 (4.5-5.9) X10^6/uL Hgb 14.5 (13.5-17.5) g/dL Hct 42.8 (41-53) % MCV 89.4 (80-100) fL MCH 30.3 (26-34) PG MCHC 33.9 (30-36) % RDW 13.9 (11.6-14.8) % Plt Count 189 (150-400) X10^3/uL Neut % (Auto) 87.8 H (50-75) % Lymph % (Auto) 7.5 L (25-40) % [place] % (Auto) 4.5 (3-14) % Eos % (Auto) 0.0 L (2-4) % Baso % (Auto) 0.2 (0-2) % Neut # (Auto) 46309 H (2362-4542) /uL Lymph # (Auto) 1000 L (7925-1114) /uL [place] # (Auto) 600 (0-900) /uL Eos # (Auto) 0 (0-450) /uL Baso # (Auto) 0 (0-100) /uL ABG pH (7.35-7.45) ABG pCO2 (35-45) mmHg ABG pO2 (80-100) mmHg ABG HCO3 (23-27) mmol/L ABG Total CO2 (23-27) mmol/L ABG O2 Saturation (95-100) % ABG Base Excess (-2-3) mmol/L FiO2 Sodium 140 (137-145) mmol/L Potassium 3.2 L (3.4-5.1) mmol/L Chloride 101 (98-107) mmol/L Carbon Dioxide 38 H (22-32) mmol/L BUN 23 H (9-20) mg/dL Creatinine 0.66 (0.66-1.25) mg/dL Estimated GFR > 60 (>60) mL/min BUN/Creatinine Ratio 34.8 H (6-22) Glucose 135 H (80-110) mg/dL Lactate (0.7-2.1) mmol/L Calcium 8.3 L (8.4-10.2) mg/dL Phosphorus (2.3-3.7) mg/dL Magnesium (1.6-2.3) mg/dL Total Bilirubin (0.2-1.3) mg/dL AST (17-59) IU/L ALT (<50) IU/L Alkaline Phosphatase (38-126) U/L Total Creatine Kinase (55-170) U/L CK-MB (CK-2) CK-MB (CK-2) Rel Index Troponin I (0.01-0.034) ng/mL NT-Pro-B Natriuret Pep (<125) pg/mL Total Protein (6.3-8.2) g/dL Albumin (3.5-5.0) g/dL Globulin (1.7-4.1) g/dL Albumin/Globulin Ratio (1.0-2.8) Lipase (23-300) U/L Procalcitonin (<0.5) ng/mL Nasal Screen MRSA (PCR) (Not Detect) Vancomycin Peak (20-40) ug/mL Vancomycin Trough 9.4 L (10-20) ug/mL SARS-CoV-2 (PCR) (Negative) Influenza A (RT-PCR) (NEGATIVE) Influenza B (RT-PCR) (NEGATIVE) RSV (PCR) (Negative) 08/27/22 Range/Units 10:35 WBC (4.5-11.0) X10^3/uL RBC (4.5-5.9) X10^6/uL Hgb (13.5-17.5) g/dL Hct (41-53) % MCV (80-100) fL MCH (26-34) PG MCHC (30-36) % RDW (11.6-14.8) % Plt Count (150-400) X10^3/uL Neut % (Auto) (50-75) % Lymph % (Auto) (25-40) % [place] % (Auto) (3-14) % Eos % (Auto) (2-4) % Baso % (Auto) (0-2) % Neut # (Auto) (6536-5495) /uL Lymph # (Auto) (6476-0648) /uL [place] # (Auto) (0-900) /uL Eos # (Auto) (0-450) /uL Baso # (Auto) (0-100) /uL ABG pH (7.35-7.45) ABG pCO2 (35-45) mmHg ABG pO2 (80-100) mmHg ABG HCO3 (23-27) mmol/L ABG Total CO2 (23-27) mmol/L ABG O2 Saturation (95-100) % ABG Base Excess (-2-3) mmol/L FiO2 Sodium (137-145) mmol/L Potassium (3.4-5.1) mmol/L Chloride (98-107) mmol/L Carbon Dioxide (22-32) mmol/L BUN (9-20) mg/dL Creatinine (0.66-1.25) mg/dL Estimated GFR (>60) mL/min BUN/Creatinine Ratio (6-22) Glucose (80-110) mg/dL Lactate (0.7-2.1) mmol/L Calcium (8.4-10.2) mg/dL Phosphorus (2.3-3.7) mg/dL Magnesium (1.6-2.3) mg/dL Total Bilirubin (0.2-1.3) mg/dL AST (17-59) IU/L ALT (<50) IU/L Alkaline Phosphatase (38-126) U/L Total Creatine Kinase (55-170) U/L CK-MB (CK-2) CK-MB (CK-2) Rel Index Troponin I (0.01-0.034) ng/mL NT-Pro-B Natriuret Pep (<125) pg/mL Total Protein (6.3-8.2) g/dL Albumin (3.5-5.0) g/dL Globulin (1.7-4.1) g/dL Albumin/Globulin Ratio (1.0-2.8) Lipase (23-300) U/L Procalcitonin (<0.5) ng/mL Nasal Screen MRSA (PCR) (Not Detect) Vancomycin Peak 24.1 (20-40) ug/mL Vancomycin Trough (10-20) ug/mL SARS-CoV-2 (PCR) (Negative) Influenza A (RT-PCR) (NEGATIVE) Influenza B (RT-PCR) (NEGATIVE) RSV (PCR) (Negative) Urine Dip Bedside Urine Glucose Negative Bedside Urine Bilirubin - Negative Bedside Urine Ketone - Negative Urine Specific [place] 1.015 Bedside Urine Occult Blood - Negative Bedside Urine pH 7.5 Bedside Urine Protein - Negative Bedside Urine Urobilinogen - Negative Bedside Urine Nitrite - Negative Bedside Urine Leukocytes - Negative Esterase MDM Narrative Medical decision making narrative: 71-year-old male with past medical history hypertension presents to the ED with 2 weeks of cough, sputum, chest tightness. Concern for URI versus ACS versus pneumonia versus congestive heart failure versus hypertension versus other. Will obtain EKG, chest x-ray, labs, troponin, BNP. Will reassess. EKG without acute ST-T changes. Chest x-ray shows chronic interstitial lung disease versus viral pneumonitis. Potassium low at 2.1. CO2 elevated to 44. Troponin elevated to 0.046. WBC elevated to 17. Urine without UTI. Cardiology was consulted regarding the troponin rise. Dr. Preston suspects that the troponin rise is more related to patient's pulmonary issues, which could be possibly COPD versus ILD versus pneumonitis vs other. He recommends getting an echo, stress test, serial troponins, no strong indication for heparin. Repeat troponin was 0.053. No EKG changes noted on repeat EKG. Potassium was repleted with 40 p.o. and 40 IV, IV fluids. Repeat potassium was 2.7. ABG was obtained which shows metabolic alkalosis. Patient was given aspirin 324. Patient's SpO2 hovered between 90 and 92, sometimes dipping to 88. A CT PE was obtained to rule out PE. The CT showed no pulmonary embolism, however shows possible postobstructive pneumonitis versus neoplasm. Patient also treated like a COPD exacerbation with prednisone, azithromycin, Rocephin. No albuterol at this time, given the hypokalemia. Patient was discussed with Dr. Jessica Simon, and hospitalist Dr. Storey and the consensus was to find a outside facility to transfer the patient to that has pulmonology. Patient's antibiotic coverage broadened with vancomycin and Zosyn. Patient signed out to Dr. Jessica Simon. 930pm Care is accepted. Patient is independently reviewed and labs and studies reviewed. In short, 71-year-old gentleman with increasing cough CT scan suggests mediastinal and right hilar adenopathy suspicious for neoplasm with right lower lung abnormalities that likely are postobstructive pneumonia. Patient does have a significant white count at 17.7 was initially started on ceftriaxone and a zithromycin which was broadened to cefepime and vancomycin once CT scan was reviewed. He is mildly hypoxic and oxygen is in place with goal to keep sats 90-94%. Lactic acid is not elevated and he is not hypotensive. Slightly elevated transaminases. Mild bump in troponin that seems to be stabilizing in his likely reaction to work of breathing and pulmonary source rather than NSTEMI. EKG does not suggest acute ischemia or STEMI. Currently needing minimal ventilatory support and is feeling significantly improved. Blood pressure is dramatically elevated and has been as an outpatient as well. There had been an extended period of time he was not taking his losartan and that was restarted along with the addition of amlodipine about a week ago. He was given these medications this morning will give him a 2nd dose this evening as systolics were consistently above 200. We are looking for bed availability with pulmonary inpatient consultation available. At this point is not an ICU candidate and I do not anticipate need for advanced oxygen such as high-flow CPAP or intubation was in the next 24 hours. Patient understands findings, concerns on CT scan and reasons for transfer. Patient is appropriately upset over diagnosis and inability to transfer. With shared decision-making we opted to treat with 5 mg of oral diazepam for this evening. Multiple hospitals have been contacted and currently beds are not immediately available. Will continue working on availablilty 10pm discussed with [facility] transfer center Dr cali: Received turned over. Reviewed patient's history and physical exam and workup. Over today the patient has been very stable. Has had occasional episodes where he is become hypoxic requiring oxygen by nasal cannula. His potassium continues to be low and it has been repleted. We will repeat a chemistry and a magnesium. Antibiotics have been continued. Throughout the day there has been no bed availability. Care turned over to Dr. Emery to continue to observe until disposition can be met. Dr. Emery: Received sign-out from Dr. Cali. Patient is 71-year-old male awaiting placement for postobstructive pneumonia. Mildly hypoxic requiring 1-2 L of oxygen without evidence of severe sepsis, significant hypokalemia of unknown origin, indeterminate troponins with a normal echocardiogram, currently awaiting placement for bronchoscopy. Hospitalist was consulted yesterday for admission he did speak to a curve saw operator who recommended transferring to higher level of care. Patient has now been in the emergency department for over 30 hours awaiting placement on multiple list no significant movement. He has been receiving cefepime and vancomycin. He received Valium at night to help him sleep which he is requesting now. Daughter thinks he is having some mild hallucinations. The patient signed out to Dr. Honorio Olmedo: August 26, 2022 at 7:00 a.m. I received sign-out from Dr Emery, we need to try to reach out to configuration management consultant to see if need urgent bronchoscopy. Medications have been automated. No new issues overnight. <Divina Cabral, DO - Last Filed: 08/27/22 20:10> Lab Data Labs: Lab Results 08/24/22 08/24/22 08/24/22 Range/Units 12:14 14:27 14:27 WBC 17.7 H (4.5-11.0) X10^3/uL RBC 5.73 (4.5-5.9) X10^6/uL Hgb 17.2 (13.5-17.5) g/dL Hct 51.3 (41-53) % MCV 89.5 (80-100) fL MCH 30.0 (26-34) PG MCHC 33.6 (30-36) % RDW 14.3 (11.6-14.8) % Plt Count 220 (150-400) X10^3/uL Neut % (Auto) 87.1 H (50-75) % Lymph % (Auto) 6.1 L (25-40) % [place] % (Auto) 6.1 (3-14) % Eos % (Auto) 0.2 L (2-4) % Baso % (Auto) 0.5 (0-2) % Neut # (Auto) 96457 H (3041-8900) /uL Lymph # (Auto) 1100 (2082-9816) /uL [place] # (Auto) 1100 H (0-900) /uL Eos # (Auto) 0 (0-450) /uL Baso # (Auto) 100 (0-100) /uL ABG pH (7.35-7.45) ABG pCO2 (35-45) mmHg ABG pO2 (80-100) mmHg ABG HCO3 (23-27) mmol/L ABG Total CO2 (23-27) mmol/L ABG O2 Saturation (95-100) % ABG Base Excess (-2-3) mmol/L FiO2 Sodium 139 (137-145) mmol/L Potassium 2.1 L* (3.4-5.1) mmol/L Chloride 90 L (98-107) mmol/L Carbon Dioxide 44 H* (22-32) mmol/L BUN 17 (9-20) mg/dL Creatinine 0.72 (0.66-1.25) mg/dL Estimated GFR > 60 (>60) mL/min BUN/Creatinine Ratio 23.6 H (6-22) Glucose 141 H (80-110) mg/dL Lactate (0.7-2.1) mmol/L Calcium 8.9 (8.4-10.2) mg/dL Phosphorus (2.3-3.7) mg/dL Magnesium (1.6-2.3) mg/dL Total Bilirubin 0.9 (0.2-1.3) mg/dL AST 63 H (17-59) IU/L ALT 169 H (<50) IU/L Alkaline Phosphatase 98 (38-126) U/L Total Creatine Kinase 31 L (55-170) U/L CK-MB (CK-2) TNP CK-MB (CK-2) Rel Index TNP Troponin I 0.046 H (0.01-0.034) ng/mL NT-Pro-B Natriuret Pep 401 H (<125) pg/mL Total Protein 7.2 (6.3-8.2) g/dL Albumin 3.6 (3.5-5.0) g/dL Globulin 3.6 (1.7-4.1) g/dL Albumin/Globulin Ratio 1.0 (1.0-2.8) Lipase 173 (23-300) U/L Procalcitonin (<0.5) ng/mL Nasal Screen MRSA (PCR) (Not Detect) Vancomycin Peak (20-40) ug/mL Vancomycin Trough (10-20) ug/mL SARS-CoV-2 (PCR) Negative (Negative) Influenza A (RT-PCR) Flu a negative (NEGATIVE) Influenza B (RT-PCR) Flu b negative (NEGATIVE) RSV (PCR) Negative (Negative) 08/24/22 08/24/22 08/24/22 Range/Units 14:27 16:27 16:41 WBC (4.5-11.0) X10^3/uL RBC (4.5-5.9) X10^6/uL Hgb (13.5-17.5) g/dL Hct (41-53) % MCV (80-100) fL MCH (26-34) PG MCHC (30-36) % RDW (11.6-14.8) % Plt Count (150-400) X10^3/uL Neut % (Auto) (50-75) % Lymph % (Auto) (25-40) % [place] % (Auto) (3-14) % Eos % (Auto) (2-4) % Baso % (Auto) (0-2) % Neut # (Auto) (8108-6082) /uL Lymph # (Auto) (2797-9076) /uL [place] # (Auto) (0-900) /uL Eos # (Auto) (0-450) /uL Baso # (Auto) (0-100) /uL ABG pH 7.53 H (7.35-7.45) ABG pCO2 52.0 H (35-45) mmHg ABG pO2 54 L (80-100) mmHg ABG HCO3 44 H (23-27) mmol/L ABG Total CO2 45 H (23-27) mmol/L ABG O2 Saturation 90 L (95-100) % ABG Base Excess 21.0 H (-2-3) mmol/L FiO2 24 Sodium (137-145) mmol/L Potassium (3.4-5.1) mmol/L Chloride (98-107) mmol/L Carbon Dioxide (22-32) mmol/L BUN (9-20) mg/dL Creatinine (0.66-1.25) mg/dL Estimated GFR (>60) mL/min BUN/Creatinine Ratio (6-22) Glucose (80-110) mg/dL Lactate (0.7-2.1) mmol/L Calcium (8.4-10.2) mg/dL Phosphorus (2.3-3.7) mg/dL Magnesium 2.1 (1.6-2.3) mg/dL Total Bilirubin (0.2-1.3) mg/dL AST (17-59) IU/L ALT (<50) IU/L Alkaline Phosphatase (38-126) U/L Total Creatine Kinase 29 L (55-170) U/L CK-MB (CK-2) TNP CK-MB (CK-2) Rel Index TNP Troponin I 0.053 H (0.01-0.034) ng/mL NT-Pro-B Natriuret Pep (<125) pg/mL Total Protein (6.3-8.2) g/dL Albumin (3.5-5.0) g/dL Globulin (1.7-4.1) g/dL Albumin/Globulin Ratio (1.0-2.8) Lipase (23-300) U/L Procalcitonin (<0.5) ng/mL Nasal Screen MRSA (PCR) (Not Detect) Vancomycin Peak (20-40) ug/mL Vancomycin Trough (10-20) ug/mL SARS-CoV-2 (PCR) (Negative) Influenza A (RT-PCR) (NEGATIVE) Influenza B (RT-PCR) (NEGATIVE) RSV (PCR) (Negative) 08/24/22 08/24/22 08/24/22 Range/Units 18:03 18:03 19:55 WBC (4.5-11.0) X10^3/uL RBC (4.5-5.9) X10^6/uL Hgb (13.5-17.5) g/dL Hct (41-53) % MCV (80-100) fL MCH (26-34) PG MCHC (30-36) % RDW (11.6-14.8) % Plt Count (150-400) X10^3/uL Neut % (Auto) (50-75) % Lymph % (Auto) (25-40) % [place] % (Auto) (3-14) % Eos % (Auto) (2-4) % Baso % (Auto) (0-2) % Neut # (Auto) (1688-0171) /uL Lymph # (Auto) (4196-3655) /uL [place] # (Auto) (0-900) /uL Eos # (Auto) (0-450) /uL Baso # (Auto) (0-100) /uL ABG pH (7.35-7.45) ABG pCO2 (35-45) mmHg ABG pO2 (80-100) mmHg ABG HCO3 (23-27) mmol/L ABG Total CO2 (23-27) mmol/L ABG O2 Saturation (95-100) % ABG Base Excess (-2-3) mmol/L FiO2 Sodium 139 (137-145) mmol/L Potassium 2.7 L* (3.4-5.1) mmol/L Chloride 90 L (98-107) mmol/L Carbon Dioxide 40 H* (22-32) mmol/L BUN 16 (9-20) mg/dL Creatinine 0.67 (0.66-1.25) mg/dL Estimated GFR > 60 (>60) mL/min BUN/Creatinine Ratio 23.9 H (6-22) Glucose 147 H (80-110) mg/dL Lactate (0.7-2.1) mmol/L Calcium 8.9 (8.4-10.2) mg/dL Phosphorus 2.4 (2.3-3.7) mg/dL Magnesium 2.1 (1.6-2.3) mg/dL Total Bilirubin 1.0 (0.2-1.3) mg/dL AST 67 H (17-59) IU/L ALT 166 H (<50) IU/L Alkaline Phosphatase 105 (38-126) U/L Total Creatine Kinase (55-170) U/L CK-MB (CK-2) CK-MB (CK-2) Rel Index Troponin I 0.054 H (0.01-0.034) ng/mL NT-Pro-B Natriuret Pep (<125) pg/mL Total Protein 7.4 (6.3-8.2) g/dL Albumin 3.7 (3.5-5.0) g/dL Globulin 3.7 (1.7-4.1) g/dL Albumin/Globulin Ratio 1.0 (1.0-2.8) Lipase (23-300) U/L Procalcitonin 0.43 (<0.5) ng/mL Nasal Screen MRSA (PCR) (Not Detect) Vancomycin Peak (20-40) ug/mL Vancomycin Trough (10-20) ug/mL SARS-CoV-2 (PCR) (Negative) Influenza A (RT-PCR) (NEGATIVE) Influenza B (RT-PCR) (NEGATIVE) RSV (PCR) (Negative) 08/24/22 08/25/22 08/25/22 Range/Units 19:55 07:30 07:30 WBC 14.6 H (4.5-11.0) X10^3/uL RBC 5.53 (4.5-5.9) X10^6/uL Hgb 16.7 (13.5-17.5) g/dL Hct 49.6 (41-53) % MCV 89.6 (80-100) fL MCH 30.2 (26-34) PG MCHC 33.7 (30-36) % RDW 14.3 (11.6-14.8) % Plt Count 216 (150-400) X10^3/uL Neut % (Auto) 84.7 H (50-75) % Lymph % (Auto) 9.8 L (25-40) % [place] % (Auto) 5.1 (3-14) % Eos % (Auto) 0.0 L (2-4) % Baso % (Auto) 0.4 (0-2) % Neut # (Auto) 92815 H (0953-2423) /uL Lymph # (Auto) 1400 (8130-6103) /uL [place] # (Auto) 700 (0-900) /uL Eos # (Auto) 0 (0-450) /uL Baso # (Auto) 100 (0-100) /uL ABG pH (7.35-7.45) ABG pCO2 (35-45) mmHg ABG pO2 (80-100) mmHg ABG HCO3 (23-27) mmol/L ABG Total CO2 (23-27) mmol/L ABG O2 Saturation (95-100) % ABG Base Excess (-2-3) mmol/L FiO2 Sodium 140 (137-145) mmol/L Potassium 2.6 L* (3.4-5.1) mmol/L Chloride 93 L (98-107) mmol/L Carbon Dioxide 43 H* (22-32) mmol/L BUN 20 (9-20) mg/dL Creatinine 0.67 (0.66-1.25) mg/dL Estimated GFR > 60 (>60) mL/min BUN/Creatinine Ratio 29.9 H (6-22) Glucose 129 H (80-110) mg/dL Lactate 1.2 (0.7-2.1) mmol/L Calcium 8.7 (8.4-10.2) mg/dL Phosphorus (2.3-3.7) mg/dL Magnesium (1.6-2.3) mg/dL Total Bilirubin 0.9 (0.2-1.3) mg/dL AST 51 (17-59) IU/L ALT 142 H (<50) IU/L Alkaline Phosphatase 87 (38-126) U/L Total Creatine Kinase (55-170) U/L CK-MB (CK-2) CK-MB (CK-2) Rel Index Troponin I (0.01-0.034) ng/mL NT-Pro-B Natriuret Pep (<125) pg/mL Total Protein 7.1 (6.3-8.2) g/dL Albumin 3.6 (3.5-5.0) g/dL Globulin 3.5 (1.7-4.1) g/dL Albumin/Globulin Ratio 1.0 (1.0-2.8) Lipase (23-300) U/L Procalcitonin (<0.5) ng/mL Nasal Screen MRSA (PCR) (Not Detect) Vancomycin Peak (20-40) ug/mL Vancomycin Trough (10-20) ug/mL SARS-CoV-2 (PCR) (Negative) Influenza A (RT-PCR) (NEGATIVE) Influenza B (RT-PCR) (NEGATIVE) RSV (PCR) (Negative) 08/25/22 08/25/22 08/26/22 Range/Units 18:40 19:50 03:55 WBC 19.6 H (4.5-11.0) X10^3/uL RBC 5.23 (4.5-5.9) X10^6/uL Hgb 15.7 (13.5-17.5) g/dL Hct 47.1 (41-53) % MCV 90.1 (80-100) fL MCH 30.1 (26-34) PG MCHC 33.4 (30-36) % RDW 14.2 (11.6-14.8) % Plt Count 222 (150-400) X10^3/uL Neut % (Auto) 88.3 H (50-75) % Lymph % (Auto) 6.4 L (25-40) % [place] % (Auto) 4.9 (3-14) % Eos % (Auto) 0.0 L (2-4) % Baso % (Auto) 0.4 (0-2) % Neut # (Auto) 96213 H (3252-2465) /uL Lymph # (Auto) 1300 (7733-3975) /uL [place] # (Auto) 1000 H (0-900) /uL Eos # (Auto) 0 (0-450) /uL Baso # (Auto) 100 (0-100) /uL ABG pH (7.35-7.45) ABG pCO2 (35-45) mmHg ABG pO2 (80-100) mmHg ABG HCO3 (23-27) mmol/L ABG Total CO2 (23-27) mmol/L ABG O2 Saturation (95-100) % ABG Base Excess (-2-3) mmol/L FiO2 Sodium 139 (137-145) mmol/L Potassium 2.3 L* (3.4-5.1) mmol/L Chloride 95 L (98-107) mmol/L Carbon Dioxide 37 H (22-32) mmol/L BUN 22 H (9-20) mg/dL Creatinine 0.69 (0.66-1.25) mg/dL Estimated GFR > 60 (>60) mL/min BUN/Creatinine Ratio 31.9 H (6-22) Glucose 163 H (80-110) mg/dL Lactate (0.7-2.1) mmol/L Calcium 8.5 (8.4-10.2) mg/dL Phosphorus (2.3-3.7) mg/dL Magnesium 2.0 (1.6-2.3) mg/dL Total Bilirubin (0.2-1.3) mg/dL AST (17-59) IU/L ALT (<50) IU/L Alkaline Phosphatase (38-126) U/L Total Creatine Kinase (55-170) U/L CK-MB (CK-2) CK-MB (CK-2) Rel Index Troponin I (0.01-0.034) ng/mL NT-Pro-B Natriuret Pep (<125) pg/mL Total Protein (6.3-8.2) g/dL Albumin (3.5-5.0) g/dL Globulin (1.7-4.1) g/dL Albumin/Globulin Ratio (1.0-2.8) Lipase (23-300) U/L Procalcitonin (<0.5) ng/mL Nasal Screen MRSA (PCR) Not detected (Not Detect) Vancomycin Peak (20-40) ug/mL Vancomycin Trough (10-20) ug/mL SARS-CoV-2 (PCR) (Negative) Influenza A (RT-PCR) (NEGATIVE) Influenza B (RT-PCR) (NEGATIVE) RSV (PCR) (Negative) 08/26/22 08/26/22 08/26/22 Range/Units 03:55 03:55 17:38 WBC (4.5-11.0) X10^3/uL RBC (4.5-5.9) X10^6/uL Hgb (13.5-17.5) g/dL Hct (41-53) % MCV (80-100) fL MCH (26-34) PG MCHC (30-36) % RDW (11.6-14.8) % Plt Count (150-400) X10^3/uL Neut % (Auto) (50-75) % Lymph % (Auto) (25-40) % [place] % (Auto) (3-14) % Eos % (Auto) (2-4) % Baso % (Auto) (0-2) % Neut # (Auto) (4333-5366) /uL Lymph # (Auto) (4835-4639) /uL [place] # (Auto) (0-900) /uL Eos # (Auto) (0-450) /uL Baso # (Auto) (0-100) /uL ABG pH (7.35-7.45) ABG pCO2 (35-45) mmHg ABG pO2 (80-100) mmHg ABG HCO3 (23-27) mmol/L ABG Total CO2 (23-27) mmol/L ABG O2 Saturation (95-100) % ABG Base Excess (-2-3) mmol/L FiO2 Sodium 139 141 (137-145) mmol/L Potassium 3.2 L 2.6 L* (3.4-5.1) mmol/L Chloride 97 L 96 L (98-107) mmol/L Carbon Dioxide 39 H 39 H (22-32) mmol/L BUN 18 22 H (9-20) mg/dL Creatinine 0.60 L 0.69 (0.66-1.25) mg/dL Estimated GFR > 60 > 60 (>60) mL/min BUN/Creatinine Ratio 30.0 H 31.9 H (6-22) Glucose 151 H 132 H (80-110) mg/dL Lactate (0.7-2.1) mmol/L Calcium 8.6 8.7 (8.4-10.2) mg/dL Phosphorus (2.3-3.7) mg/dL Magnesium (1.6-2.3) mg/dL Total Bilirubin (0.2-1.3) mg/dL AST (17-59) IU/L ALT (<50) IU/L Alkaline Phosphatase (38-126) U/L Total Creatine Kinase (55-170) U/L CK-MB (CK-2) CK-MB (CK-2) Rel Index Troponin I (0.01-0.034) ng/mL NT-Pro-B Natriuret Pep (<125) pg/mL Total Protein (6.3-8.2) g/dL Albumin (3.5-5.0) g/dL Globulin (1.7-4.1) g/dL Albumin/Globulin Ratio (1.0-2.8) Lipase (23-300) U/L Procalcitonin 0.39 (<0.5) ng/mL Nasal Screen MRSA (PCR) (Not Detect) Vancomycin Peak (20-40) ug/mL Vancomycin Trough (10-20) ug/mL SARS-CoV-2 (PCR) (Negative) Influenza A (RT-PCR) (NEGATIVE) Influenza B (RT-PCR) (NEGATIVE) RSV (PCR) (Negative) 08/27/22 08/27/22 08/27/22 Range/Units 06:15 06:15 06:15 WBC 13.9 H (4.5-11.0) X10^3/uL RBC 4.79 (4.5-5.9) X10^6/uL Hgb 14.5 (13.5-17.5) g/dL Hct 42.8 (41-53) % MCV 89.4 (80-100) fL MCH 30.3 (26-34) PG MCHC 33.9 (30-36) % RDW 13.9 (11.6-14.8) % Plt Count 189 (150-400) X10^3/uL Neut % (Auto) 87.8 H (50-75) % Lymph % (Auto) 7.5 L (25-40) % [place] % (Auto) 4.5 (3-14) % Eos % (Auto) 0.0 L (2-4) % Baso % (Auto) 0.2 (0-2) % Neut # (Auto) 51428 H (5363-5047) /uL Lymph # (Auto) 1000 L (7588-9949) /uL [place] # (Auto) 600 (0-900) /uL Eos # (Auto) 0 (0-450) /uL Baso # (Auto) 0 (0-100) /uL ABG pH (7.35-7.45) ABG pCO2 (35-45) mmHg ABG pO2 (80-100) mmHg ABG HCO3 (23-27) mmol/L ABG Total CO2 (23-27) mmol/L ABG O2 Saturation (95-100) % ABG Base Excess (-2-3) mmol/L FiO2 Sodium 140 (137-145) mmol/L Potassium 3.2 L (3.4-5.1) mmol/L Chloride 101 (98-107) mmol/L Carbon Dioxide 38 H (22-32) mmol/L BUN 23 H (9-20) mg/dL Creatinine 0.66 (0.66-1.25) mg/dL Estimated GFR > 60 (>60) mL/min BUN/Creatinine Ratio 34.8 H (6-22) Glucose 135 H (80-110) mg/dL Lactate (0.7-2.1) mmol/L Calcium 8.3 L (8.4-10.2) mg/dL Phosphorus (2.3-3.7) mg/dL Magnesium (1.6-2.3) mg/dL Total Bilirubin (0.2-1.3) mg/dL AST (17-59) IU/L ALT (<50) IU/L Alkaline Phosphatase (38-126) U/L Total Creatine Kinase (55-170) U/L CK-MB (CK-2) CK-MB (CK-2) Rel Index Troponin I (0.01-0.034) ng/mL NT-Pro-B Natriuret Pep (<125) pg/mL Total Protein (6.3-8.2) g/dL Albumin (3.5-5.0) g/dL Globulin (1.7-4.1) g/dL Albumin/Globulin Ratio (1.0-2.8) Lipase (23-300) U/L Procalcitonin (<0.5) ng/mL Nasal Screen MRSA (PCR) (Not Detect) Vancomycin Peak (20-40) ug/mL Vancomycin Trough 9.4 L (10-20) ug/mL SARS-CoV-2 (PCR) (Negative) Influenza A (RT-PCR) (NEGATIVE) Influenza B (RT-PCR) (NEGATIVE) RSV (PCR) (Negative) 08/27/22 Range/Units 10:35 WBC (4.5-11.0) X10^3/uL RBC (4.5-5.9) X10^6/uL Hgb (13.5-17.5) g/dL Hct (41-53) % MCV (80-100) fL MCH (26-34) PG MCHC (30-36) % RDW (11.6-14.8) % Plt Count (150-400) X10^3/uL Neut % (Auto) (50-75) % Lymph % (Auto) (25-40) % [place] % (Auto) (3-14) % Eos % (Auto) (2-4) % Baso % (Auto) (0-2) % Neut # (Auto) (6145-4732) /uL Lymph # (Auto) (8758-3955) /uL [place] # (Auto) (0-900) /uL Eos # (Auto) (0-450) /uL Baso # (Auto) (0-100) /uL ABG pH (7.35-7.45) ABG pCO2 (35-45) mmHg ABG pO2 (80-100) mmHg ABG HCO3 (23-27) mmol/L ABG Total CO2 (23-27) mmol/L ABG O2 Saturation (95-100) % ABG Base Excess (-2-3) mmol/L FiO2 Sodium (137-145) mmol/L Potassium (3.4-5.1) mmol/L Chloride (98-107) mmol/L Carbon Dioxide (22-32) mmol/L BUN (9-20) mg/dL Creatinine (0.66-1.25) mg/dL Estimated GFR (>60) mL/min BUN/Creatinine Ratio (6-22) Glucose (80-110) mg/dL Lactate (0.7-2.1) mmol/L Calcium (8.4-10.2) mg/dL Phosphorus (2.3-3.7) mg/dL Magnesium (1.6-2.3) mg/dL Total Bilirubin (0.2-1.3) mg/dL AST (17-59) IU/L ALT (<50) IU/L Alkaline Phosphatase (38-126) U/L Total Creatine Kinase (55-170) U/L CK-MB (CK-2) CK-MB (CK-2) Rel Index Troponin I (0.01-0.034) ng/mL NT-Pro-B Natriuret Pep (<125) pg/mL Total Protein (6.3-8.2) g/dL Albumin (3.5-5.0) g/dL Globulin (1.7-4.1) g/dL Albumin/Globulin Ratio (1.0-2.8) Lipase (23-300) U/L Procalcitonin (<0.5) ng/mL Nasal Screen MRSA (PCR) (Not Detect) Vancomycin Peak 24.1 (20-40) ug/mL Vancomycin Trough (10-20) ug/mL SARS-CoV-2 (PCR) (Negative) Influenza A (RT-PCR) (NEGATIVE) Influenza B (RT-PCR) (NEGATIVE) RSV (PCR) (Negative) Urine Dip Bedside Urine Glucose Negative Bedside Urine Bilirubin - Negative Bedside Urine Ketone - Negative Urine Specific [place] 1.015 Bedside Urine Occult Blood - Negative Bedside Urine pH 7.5 Bedside Urine Protein - Negative Bedside Urine Urobilinogen - Negative Bedside Urine Nitrite - Negative Bedside Urine Leukocytes - Negative Esterase MDM Narrative Medical decision making narrative: 71-year-old male with past medical history hypertension presents to the ED with 2 weeks of cough, sputum, chest tightness. Concern for URI versus ACS versus pneumonia versus congestive heart failure versus hypertension versus other. Will obtain EKG, chest x-ray, labs, troponin, BNP. Will reassess. EKG without acute ST-T changes. Chest x-ray shows chronic interstitial lung disease versus viral pneumonitis. Potassium low at 2.1. CO2 elevated to 44. Troponin elevated to 0.046. WBC elevated to 17. Urine without UTI. Cardiology was consulted regarding the troponin rise. Dr. Preston suspects that the troponin rise is more related to patient's pulmonary issues, which could be possibly COPD versus ILD versus pneumonitis vs other. He recommends getting an echo, stress test, serial troponins, no strong indication for heparin. Repeat troponin was 0.053. No EKG changes noted on repeat EKG. Potassium was repleted with 40 p.o. and 40 IV, IV fluids. Repeat potassium was 2.7. ABG was obtained which shows metabolic alkalosis. Patient was given aspirin 324. Patient's SpO2 hovered between 90 and 92, sometimes dipping to 88. A CT PE was obtained to rule out PE. The CT showed no pulmonary embolism, however shows possible postobstructive pneumonitis versus neoplasm. Patient also treated like a COPD exacerbation with prednisone, azithromycin, Rocephin. No albuterol at this time, given the hypokalemia. Patient was discussed with Dr. Jessica Simon, and hospitalist Dr. Storey and the consensus was to find a outside facility to transfer the patient to that has pulmonology. Patient's antibiotic coverage broadened with vancomycin and Zosyn. Patient signed out to Dr. Jessica Simon. 930pm Care is accepted. Patient is independently reviewed and labs and studies reviewed. In short, 71-year-old gentleman with increasing cough CT scan suggests mediastinal and right hilar adenopathy suspicious for neoplasm with right lower lung abnormalities that likely are postobstructive pneumonia. Patient does have a significant white count at 17.7 was initially started on ceftriaxone and azithromycin which was broadened to cefepime and vancomycin once CT scan was reviewed. He is mildly hypoxic and oxygen is in place with goal to keep sats 9 0-94%. Lactic acid is not elevated and he is not hypotensive. Slightly elevated transaminases. Mild bump in troponin that seems to be stabilizing in his likely reaction to work of breathing and pulmonary source rather than NSTEMI. EKG does not suggest acute ischemia or STEMI. Currently needing minimal ventilatory support and is feeling significantly improved. Blood pressure is dramatically elevated and has been as an outpatient as well. There had been an extended period of time he was not taking his losartan and that was restarted along with the addition of amlodipine about a week ago. He was given these medications this morning will give him a 2nd dose this evening as systolics were consistently above 200. We are looking for bed availability with pulmonary inpatient consultation available. At this point is not an ICU candidate and I do not anticipate need for advanced oxygen such as high-flow CPAP or intubation was in the next 24 hours. Patient understands findings, concerns on CT scan and reasons for transfer. Patient is appropriately upset over diagnosis and inability to transfer. With shared decision-making we opted to treat with 5 mg of oral diazepam for this evening. Multiple hospitals have been contacted and currently beds are not immediately available. Will continue working on availablilty 10pm discussed with [facility] transfer center Dr cali: Received turned over. Reviewed patient's history and physical exam and workup. Over today the patient has been very stable. Has had occasional episodes where he is become hypoxic requiring oxygen by nasal cannula. His potassium continues to be low and it has been repleted. We will repeat a chemistry and a magnesium. Antibiotics have been continued. Throughout the day there has been no bed availability. Care turned over to Dr. Emery to continue to observe until disposition can be met. Dr. Emery: Received sign-out from Dr. Cali. Patient is 71-year-old male awaiting placement for postobstructive pneumonia. Mildly hypoxic requiring 1-2 L of oxygen without evidence of severe sepsis, significant hypokalemia of unknown origin, indeterminate troponins with a normal echocardiogram, currently awaiting placement for bronchoscopy. Hospitalist was consulted yesterday for admission he did speak to a curve saw operator who recommended transferring to higher level of care. Patient has now been in the emergency department for over 30 hours awaiting placement on multiple list no significant movement. He has been receiving cefepime and vancomycin. He received Valium at night to help him slee p which he is requesting now. Daughter thinks he is having some mild hallucinations. The patient signed out to Dr. Honorio Olmedo: August 26, 2022 at 7:00 a.m. I received sign-out from Dr Emery, we need to try to reach out to configuration management consultant to see if need urgent bronchoscopy. Medications have been automated. No new issues overnight. Dr. Emery-received sign-out from Dr. Campbell. Patient has continuous hypokalemia despite p.o. replacement. He has been up to the restroom urinating is not hypoxic will ambulating but while sleeping dips down to 80%. Blood work is overall improving, except for the hypokalemia. Dr. Emery spoke with pulmonology who states the patient can likely be treated with antibiotics however patient was still not admitted here to this hospital. Still awaiting bronchoscopy. Patient signed out to Dr. Cabral 08/27/22 [facility] 0806: Patient signed out to myself by Dr. Emery. Patient seen and independently evaluated. He states he is feeling much improved today he is on 1-2 L currently and is eating breakfast. Patient had developed postobstructive pneumonia with plan for transfer for bronch and possibly thoracic surgery for sample. Patient labs show improving leukocytosis at 13, patient has been persistently hypokalemic and requiring replacement. Renal function appropriate BUN 23. Patient does not have any other complaints or concerns currently. Plan for repeat chest x-ray. Patient's medications were also increased his amlodipine was increased last night to 10 mg from 5 any had Coreg added as his diastolic pressure was quite elevated. Patient is currently on vancomycin and cefepime. Echo showed no acute changes with an EF of 65%. [facility] Reviewed patient's history, treatments thus far, labs, echo and she accepts for transfer she asked if we can speak with pulmonology as needed. Discussed happy to do so. She may also speak with them. Transfer center called back and stated patient is accepted and bed is available and can set up transport. Discharge Plan Departure Patient Disposition: [facility] Clinical Impression: Postobstructive pneumonia, Acute respiratory failure with hypoxia, Hypokalemia Prescriptions: No Action amlodipine 5 mg Tablet 5 mg PO DAILY losartan 100 mg Tablet 100 mg PO DAILY Referrals: Miscellaneous,DoctorMD [Primary Care Provider] - <Jessica Simon MD - Last Filed: 09/04/22 15:45> Cosign ED Attending Cosignature Attestation: I was immediately available in the department for consultation throughout this patient's visit. Jessica Simon MD
[2022-08-24 14:34] LABS: Add Manual Diff / Slide Review NO; Basophils Absolute Auto 100 /uL (0-100); Basophils Percent Auto 0.5 % (0-2); Eosinophils Absolute Auto 0 /uL (0-450); Eosinophils Percent Auto 0.2 % (2-4); Hematocrit 51.3 % (41-53); Hemoglobin 17.2 g/dL (13.5-17.5); Lymphocytes Absolute Auto 1100 /uL (1100-4500); Lymphocytes Percent Auto 6.1 % (25-40); Mean Corpuscular HGB Conc 33.6 % (30-36); Mean Corpuscular Volume 89.5 fL (80-100); Monocytes Absolute Auto 1100 /uL (0-900); Monocytes Percent Auto 6.1 % (3-14); Neutrophils Absolute Auto 15400 /uL (1500-7000); Neutrophils Percent Auto 87.1 % (50-75); Platelet Count 220 X10^3/uL (150-400); Red Blood Cell Count 5.73 X10^6/uL (4.5-5.9); Red Cell Distribution Width 14.3 % (11.6-14.8); White Blood Cell Count 17.7 X10^3/uL (4.5-11.0)
[2022-08-24 14:46] LABS: Alanine Aminotransferase 169 IU/L (<50); Albumin 3.6 g/dL (3.5-5.0); Alkaline Phosphatase 98 U/L (38-126); Aspartate Aminotransferase 63 IU/L (17-59); BUN Creatinine Ratio 23.6 (6-22); Bilirubin Total 0.9 mg/dL (0.2-1.3); Blood Urea Nitrogen 17 mg/dL (9-20); Calcium 8.9 mg/dL (8.4-10.2); Chloride 90 mmol/L (98-107); Creatine Kinase 31 U/L (55-170); Estimated Glomerular Filt Rate > 60 mL/min (>60); Globulin 3.6 g/dL (1.7-4.1); Glucose 141 mg/dL (80-110); HEMOLYSIS < 15 (0-50); Lipase 173 U/L (23-300); Magnesium 2.1 mg/dL (1.6-2.3); Sodium 139 mmol/L (137-145); Total Protein 7.2 g/dL (6.3-8.2)
[2022-08-24 14:53] LABS: Potassium 2.1 mmol/L (3.4-5.1)
[2022-08-24 14:54] LABS: Carbon Dioxide 44 mmol/L (22-32)
[2022-08-24 14:55] LABS: NT-proBNP (BNP-Adult 18+) 401 pg/mL (<125)
[2022-08-24 14:59] LABS: Troponin I 0.046 ng/mL (0.01-0.034)
[2022-08-24] MEDS: POTASSIUM CHLORIDE IN WATER 10 MEQ/100 ML PIGGYBACK 100 MEQ IV ×4 (15:07→19:05)
[2022-08-24] MEDS: SODIUM CHLORIDE 0.9% 1,000 ML 100 ML IV (15:09)
[2022-08-24] MEDS: ASPIRIN 81 MG CHEW TAB 324 MG PO (15:20)
[2022-08-24] MEDS: POTASSIUM CHLORIDE 20 MEQ TAB 40 MEQ PO (15:20)
--- NOTE | 2022-08-24 15:36 | DI.ECHO.S_ITS ---
[place] +---------+ Hospital +---------+ : : [address] : : [place], [place] : : : : [id number] : : : : Phone: [phone]+ Echocardiogram Report + + :Name: COLBY ZAPATA Study Date: 08/24/2022 Height: 70 in : :[facility] ReadingLocation: Weight: 185 lb : : Gender: Male BSA: 2.0 m2 : :: 1950 Age: 71 yrs BP: 164/93 mmHg: :Reason For Study: ELEVATED TROPONIN HR: 82 : :Ordering Physician: BG SARABIAAPerformed By: GERALD MORAES : :Referring: MIKE SARABIA : + + Interpretation Summary Borderline concentric left ventricular hypertrophy with ejection fraction 60- 65%. Severely dilated left atrium. No significant valvular abnormality. Procedure: A two-dimensional transthoracic echocardiogram with color flow and Doppler was performed. The study quality was technically adequate. There is no prior echocardiogram noted for this patient. The patient was in normal sinus rhythm during the exam. Left Ventricle: The left ventricle is normal in size. There is borderline concentric left ventricular hypertrophy. The ejection fraction is estimated to be 60-65%. There are no focal wall motion abnormalities. Right Ventricle: The right ventricle is normal in size and function. Atria: The left atrium is severely dilated. The right atrium is normal in size. There is no Doppler evidence for an interatrial shunt. Mitral Valve: The mitral valve leaflets appear normal. There is no evidence of stenosis, fluttering, or prolapse. There is no mitral regurgitation noted. Aortic Valve: The aortic valve opens well. The aortic valve is mildly calcified. There is no aortic valve stenosis. There is trace aortic regurgitation. Tricuspid Valve: The tricuspid valve is normal. No tricuspid regurgitation. Pulmonary artery pressures cannot be estimated because of the lack of a measurable TR jet velocity. Pulmonic Valve: The pulmonic valve leaflets are thin and pliable; valve motion is normal. There is no pulmonic valvular regurgitation. Great Vessels: The aortic root is mildly dilated. The ascending aorta could not be visualized. The IVC is of normal diameter and collapses greater than 50% with a sniff. This suggests a low right atrial pressure of 3 mm Hg. Pericardium/ Pleura There is no pericardial effusion. There is no pleural effusion. MMode/2D Measurements & Calculations LVIDd: 3.8 cm LVOT diam: 2.5 cm LVIDs: 3.3 cm Ao root diam: 3.8 cm FS: 14.6 % IVSd: 1.1 cm LVPWd: 1.2 cm LV boone. diameter/BSA (cm/m^2): 1.9 LV sys. diameter/BSA (cm/m^2): 1.6 LA A2 area: 23.7 cm2 RA long axis: 4.8 cm LA A4 area: 16.9 cm2 RA area: 13.9 cm2 LA length (vol): 5.3 cm RA vol: 34.1 ml LA vol: 63.7 ml RA : 16.9 ml/m2 LA vol index: 31.5 ml/m2 IVC diam: 1.2 cm TAPSE: 1.9 cm Doppler Measurements & Calculations Ao V2 max: 134.3 cm/sec LVOT Max Josep: 110.7 cm/sec Ao V2 mean: 95.3 cm/sec LV V1 max P.9 mmHg Ao max P.2 mmHg LV V1 VTI: 18.5 cm Ao mean P.9 mmHg MAI(I,D): 3.9 cm2 Ao V2 VTI: 23.1 cm MAI(V,D): 4.1 cm2 sev ratio: 0.80 MAI indexed to BSA (cm^2/m^2): 1.9 MV E max josep: 42.1 cm/sec PA V2 max: 111.0 cm/sec MV A max josep: 70.2 cm/sec PA V2 mean: 74.6 cm/sec MV E/A: 0.60 PA mean P.5 mmHg Med Peak E' Josep: 5.8 cm/sec PA pr(Accel): 34.5 mmHg E/E' med: 7.3 Lat Peak E' Josep: 8.7 cm/sec E/E' lat: 4.8 E/e' average: 6.0 MV dec time: 0.21 sec SV(LVOT): 91.0 ml Electronically signed by: Dustin Viramontes on Reading Physician:08/24/2022 07:58 PM
--- NOTE | 2022-08-24 16:11 | PC.NURSE ---
Addendum entered by Sharan Ring R.N. 08/24/22 17:29: 1715: Provider at bedside. Verbal order for NC at 0.5L/min. Pt oxygen at 0.5L via NC. Original Note: Pt desat to 88-90% on RA. Provider Isaias made aware. New verbal order for NC at 1L. Pt placed on 1L via NC.
[2022-08-24 16:46] LABS: Creatine Kinase 29 U/L (55-170)
[2022-08-24 16:59] LABS: Troponin I 0.053 ng/mL (0.01-0.034)
[2022-08-24 17:07] LABS: PO2 ABG 54 mmHg (80-100); pH ABG 7.53 (7.35-7.45)
[2022-08-24 17:08] LABS: Fractionated Inspired Oxygen 24; HCO3 ABG 44 mmol/L (23-27); Oxygen Saturation ABG 90 % (95-100); TCO2 ABG 45 mmol/L (23-27)
[2022-08-24] MEDS: predniSONE 20 MG TABLET 60 MG PO (17:20)
--- NOTE | 2022-08-24 17:29 | DI.CT.S_ITS ---
PROCEDURE: CT ANGIO CHEST PE PROTOCOL INDICATIONS: interstitial lung disease TECHNIQUE: After the administration of intravenous contrast, 2 mm thick sections acquired from the pulmonary apices to the posterior costophrenic angles. 3-dimensional maximum intensity projection (MIP) coronal and sagittal reformats were then acquired through the thorax. For radiation dose reduction, the following was used: automated exposure control, adjustment of mA and/or kV according to patient size. COMPARISON: None. FINDINGS: Image quality: Excellent. Pulmonary arteries: Anterior right upper lobe pulmonary artery is narrowed by adjacent adenopathy. The main pulmonary outflow tract is mildly dilated at 4.0 cm. There are no intraluminal filling defects in the pulmonary arterial tree. Lungs and pleura: There are small nodular right suprahilar masses measuring 1.4 cm each in transverse diameter there is coarse reticulation at the right lower lobe lung base and moderate bronchial wall thickening and irregularity. Findings are superimposed on diffuse moderate centrilobular emphysematous change. Mediastinum: There is bulky mediastinal adenopathy with a right perihilar/mediastinal mass narrowing the right anterior upper lobe pulmonary artery measuring roughly 6.2 x 4.1 by 3.2 cm. Other bulky prevascular lymph nodes are seen. No significant left hilar adenopathy. The heart size is normal. No pericardial effusion. Aorta and branching vessels are normal. Bones and chest wall: No suspicious bony lesions. Ribs and thoracic spine appear intact throughout. Thyroid gland has a normal CT appearance. No axillary or supraclavicular adenopathy. Abdomen: There are at least two left adrenal nodules measuring 2.0 cm and 2.4 cm with intermediate Hounsfield units not definitely benign adenomas. Cyst in the medial right kidney. Numerous calcifications throughout the pancreas consistent with chronic pancreatitis. IMPRESSION: 1. No pulmonary emboli. 2. Narrowing of anterior right upper lobe pulmonary artery by bulky right hilar adenopathy. 3. Mediastinal and right hilar adenopathy is chronic appearing and suspicious for neoplasm. 4. There is bronchial wall thickening and interstitial reticulation involving the right lower lung which may be postobstructive pneumonitis, less likely metastatic disease. 5. Small right suprahilar parenchymal nodules are probably perihilar lymph nodes, less likely primary lung neoplasm. 6. Thoracic surgery consult is recommended for tissue acquisition. Dictated by: Rita Calles M.D. on 08/24/2022 at 18:33 Approved by: Rita Calles M.D. on 08/24/2022 at 18:43
[2022-08-24] MEDS: AZITHROMYCIN 250 MG TABLET 500 MG PO (18:16)
[2022-08-24] MEDS: cefTRIAXone 2,000 MG in SODIUM CHLORIDE 0.9% 100 ML 200 MG IV (18:16)
--- NOTE | 2022-08-24 18:25 | PC.NURSE ---
Per lab unable to obtain blood work. This RN and RN Prasanth able to obtain most of the blood cultures. Confirmed with lab OK for the amount. Lab OKAYED enough received. Pt medicated per JUL.
[2022-08-24 18:39] LABS: Alanine Aminotransferase 166 IU/L (<50); Albumin 3.7 g/dL (3.5-5.0); Alkaline Phosphatase 105 U/L (38-126); Aspartate Aminotransferase 67 IU/L (17-59); BUN Creatinine Ratio 23.9 (6-22); Blood Urea Nitrogen 16 mg/dL (9-20); Calcium 8.9 mg/dL (8.4-10.2); Chloride 90 mmol/L (98-107); Estimated Glomerular Filt Rate > 60 mL/min (>60); Globulin 3.7 g/dL (1.7-4.1); Glucose 147 mg/dL (80-110); HEMOLYSIS < 15 (0-50); Magnesium 2.1 mg/dL (1.6-2.3); Phosphorous 2.4 mg/dL (2.3-3.7); Sodium 139 mmol/L (137-145); Total Protein 7.4 g/dL (6.3-8.2)
[2022-08-24 18:48] LABS: Carbon Dioxide 40 mmol/L (22-32); Potassium 2.7 mmol/L (3.4-5.1)
[2022-08-24 18:54] LABS: Procalcitonin 0.43 ng/mL (<0.5)
--- NOTE | 2022-08-24 20:15 | PC.NURSE ---
Addendum entered by Sharan Ring R.N. 08/24/22 21:57: Per provider MAYANK Simon to give both medications. Original Note: Pt reports taking his home meds of amlodopine and losartan this morning. This RN to verify with provider OK to give per JUL.
[2022-08-24 20:17] LABS: Lactate (Lactic Acid) 1.2 mmol/L (0.7-2.1)
[2022-08-24] MEDS: CEFEPIME 2 GM in SODIUM CHLORIDE 0.9% 100 ML IV (20:18)
[2022-08-24 20:30] LABS: Troponin I 0.054 ng/mL (0.01-0.034)
[2022-08-24] MEDS: AMLODIPINE 5 MG TABLET PO (21:58)
[2022-08-24] MEDS: LOSARTAN 50 MG TABLET 100 MG PO (21:58)
[2022-08-24] MEDS: diazePAM 5 MG TABLET PO (22:01)
[2022-08-25] VITALS (50 sets, daily range): BP systolic 135–213; BP diastolic 78–110; PULSE 66–104; RESP 8–33; O2SAT 89–97
--- NOTE | 2022-08-25 02:42 | PC.NURSE ---
HEALTHCARE EDUCATOR note: Attempting to find placement for patient. Called the following hospitals and got the following responses: [facility]: [phone] Spoke to Maria Victoria. No beds. Sent face sheet over per request. [place]: 2044, [place]. They're getting full so no beds. Sent a face sheet and put him on the waitlist. [facility] [place]: 2152 I spoke to Blayne. They only taking [place] patients and patient hasn't gone there. [facility]: [id number] Spoke to Calin. No beds. But asked me to send a face sheet and will put on their list. Maybe later on Wednesday? [facility] Barbra. He's on their list.
[2022-08-25 07:39] LABS: Add Manual Diff / Slide Review NO; Basophils Absolute Auto 100 /uL (0-100); Basophils Percent Auto 0.4 % (0-2); Eosinophils Absolute Auto 0 /uL (0-450); Hematocrit 49.6 % (41-53); Hemoglobin 16.7 g/dL (13.5-17.5); Lymphocytes Absolute Auto 1400 /uL (1100-4500); Lymphocytes Percent Auto 9.8 % (25-40); Mean Corpuscular HGB Conc 33.7 % (30-36); Mean Corpuscular Hemoglobin 30.2 PG (26-34); Mean Corpuscular Volume 89.6 fL (80-100); Monocytes Absolute Auto 700 /uL (0-900); Monocytes Percent Auto 5.1 % (3-14); Neutrophils Absolute Auto 12400 /uL (1500-7000); Neutrophils Percent Auto 84.7 % (50-75); Platelet Count 216 X10^3/uL (150-400); Red Blood Cell Count 5.53 X10^6/uL (4.5-5.9); Red Cell Distribution Width 14.3 % (11.6-14.8); White Blood Cell Count 14.6 X10^3/uL (4.5-11.0)
[2022-08-25 07:58] LABS: Alanine Aminotransferase 142 IU/L (<50); Albumin 3.6 g/dL (3.5-5.0); Alkaline Phosphatase 87 U/L (38-126); Aspartate Aminotransferase 51 IU/L (17-59); BUN Creatinine Ratio 29.9 (6-22); Bilirubin Total 0.9 mg/dL (0.2-1.3); Blood Urea Nitrogen 20 mg/dL (9-20); Calcium 8.7 mg/dL (8.4-10.2); Chloride 93 mmol/L (98-107); Estimated Glomerular Filt Rate > 60 mL/min (>60); Globulin 3.5 g/dL (1.7-4.1); Glucose 129 mg/dL (80-110); HEMOLYSIS < 15 (0-50); Sodium 140 mmol/L (137-145); Total Protein 7.1 g/dL (6.3-8.2)
[2022-08-25 08:05] LABS: Carbon Dioxide 43 mmol/L (22-32); Potassium 2.6 mmol/L (3.4-5.1)
[2022-08-25] MEDS: POTASSIUM CHLORIDE IN WATER 10 MEQ/100 ML PIGGYBACK 100 MEQ IV ×8 (09:14→23:36)
[2022-08-25] MEDS: SODIUM CHLORIDE 0.9% 1,000 ML 125 ML IV (09:19)
[2022-08-25] MEDS: VANCOMYCIN 1,000 MG/200 ML PIGGYBACK 200 MG IV (09:24)
--- NOTE | 2022-08-25 10:46 | PC.NURSE ---
Called [facility] station at 1042 to add patient to waitlist. Spoke to Barbra and was told that They are so busy that she can't add patient to waitlist due to us already having patient of ours on their list. Will not be able to add until current case they are working with is closed.
[2022-08-25] MEDS: AMLODIPINE 5 MG TABLET PO (10:58)
[2022-08-25] MEDS: LOSARTAN 50 MG TABLET 100 MG PO (10:58)
[2022-08-25 19:18] LABS: BUN Creatinine Ratio 31.9 (6-22); Blood Urea Nitrogen 22 mg/dL (9-20); Calcium 8.5 mg/dL (8.4-10.2); Chloride 95 mmol/L (98-107); Estimated Glomerular Filt Rate > 60 mL/min (>60); Glucose 163 mg/dL (80-110); HEMOLYSIS < 15 (0-50); Sodium 139 mmol/L (137-145)
[2022-08-25 19:24] LABS: Carbon Dioxide 37 mmol/L (22-32)
[2022-08-25] MEDS: VANCOMYCIN 1,500 MG/300 ML PIGGYBACK 200 MG IV (19:24)
[2022-08-25 19:32] LABS: Potassium 2.3 mmol/L (3.4-5.1)
[2022-08-25] MEDS: POTASSIUM CHLORIDE 20 MEQ TAB 40 MEQ PO (19:41)
[2022-08-25] MEDS: CEFEPIME 2 GM in SODIUM CHLORIDE 0.9% 100 ML IV (21:23)
[2022-08-25 21:48] LABS: MRSA (Nasal) PCR Not Detected (Not Detect)
[2022-08-26] VITALS (58 sets, daily range): BP systolic 133–189; BP diastolic 92–104; PULSE 72–109; RESP 12–26; O2SAT 91–97
[2022-08-26] MEDS: POTASSIUM CHLORIDE IN WATER 10 MEQ/100 ML PIGGYBACK 100 MEQ IV ×6 (01:15→22:55)
[2022-08-26] MEDS: diazePAM 5 MG TABLET PO ×2 (01:32→23:44)
[2022-08-26 04:25] LABS: Blood Urea Nitrogen 18 mg/dL (9-20); Calcium 8.6 mg/dL (8.4-10.2); Carbon Dioxide 39 mmol/L (22-32); Chloride 97 mmol/L (98-107); Estimated Glomerular Filt Rate > 60 mL/min (>60); Glucose 151 mg/dL (80-110); HEMOLYSIS < 15 (0-50); Potassium 3.2 mmol/L (3.4-5.1); Sodium 139 mmol/L (137-145)
[2022-08-26 04:35] LABS: Add Manual Diff / Slide Review NO; Basophils Absolute Auto 100 /uL (0-100); Basophils Percent Auto 0.4 % (0-2); Eosinophils Absolute Auto 0 /uL (0-450); Hematocrit 47.1 % (41-53); Hemoglobin 15.7 g/dL (13.5-17.5); Lymphocytes Absolute Auto 1300 /uL (1100-4500); Lymphocytes Percent Auto 6.4 % (25-40); Mean Corpuscular HGB Conc 33.4 % (30-36); Mean Corpuscular Hemoglobin 30.1 PG (26-34); Mean Corpuscular Volume 90.1 fL (80-100); Monocytes Absolute Auto 1000 /uL (0-900); Monocytes Percent Auto 4.9 % (3-14); Neutrophils Absolute Auto 17300 /uL (1500-7000); Neutrophils Percent Auto 88.3 % (50-75); Platelet Count 222 X10^3/uL (150-400); Red Blood Cell Count 5.23 X10^6/uL (4.5-5.9); Red Cell Distribution Width 14.2 % (11.6-14.8); White Blood Cell Count 19.6 X10^3/uL (4.5-11.0)
[2022-08-26] MEDS: CEFEPIME 2 GM in SODIUM CHLORIDE 0.9% 100 ML IV ×3 (06:58→20:45)
[2022-08-26 07:24] LABS: Procalcitonin 0.39 ng/mL (<0.5)
[2022-08-26] MEDS: VANCOMYCIN 1,500 MG/300 ML PIGGYBACK 200 MG IV ×2 (08:12→17:58)
[2022-08-26] MEDS: POTASSIUM CHLORIDE 20 MEQ TAB 40 MEQ PO ×2 (08:13→18:43)
[2022-08-26] MEDS: AMLODIPINE 5 MG TABLET PO (08:13)
[2022-08-26] MEDS: LOSARTAN 50 MG TABLET 100 MG PO (09:09)
[2022-08-26] MEDS: AMLODIPINE 5 MG TABLET 10 MG PO (17:03)
[2022-08-26 18:19] LABS: BUN Creatinine Ratio 31.9 (6-22); Blood Urea Nitrogen 22 mg/dL (9-20); Calcium 8.7 mg/dL (8.4-10.2); Chloride 96 mmol/L (98-107); Estimated Glomerular Filt Rate > 60 mL/min (>60); Glucose 132 mg/dL (80-110); HEMOLYSIS < 15 (0-50); Sodium 141 mmol/L (137-145)
[2022-08-26 18:25] LABS: Carbon Dioxide 39 mmol/L (22-32)
[2022-08-26 18:27] LABS: Potassium 2.6 mmol/L (3.4-5.1)
[2022-08-26] MEDS: SODIUM CHLORIDE 0.9% 1,000 ML 125 ML IV (18:43)
[2022-08-26] MEDS: carvediloL 3.125 MG TABLET 6.25 MG PO (20:53)
[2022-08-27] VITALS (23 sets, daily range): BP systolic 118–168; BP diastolic 69–93; PULSE 62–88; RESP 12–22; O2SAT 90–96
--- NOTE | 2022-08-27 02:08 | PC.NURSE ---
0200 08/27/22 Pt on waitlist with [facility] spoke with Calin
--- NOTE | 2022-08-27 05:07 | PC.NURSE ---
Did room air trial. Pt dropped to 88% while sleeping. replaced o2 at 1 Liter at this time
[2022-08-27] MEDS: CEFEPIME 2 GM in SODIUM CHLORIDE 0.9% 100 ML IV (06:09)
[2022-08-27 06:27] LABS: Add Manual Diff / Slide Review NO; Basophils Absolute Auto 0 /uL (0-100); Basophils Percent Auto 0.2 % (0-2); Eosinophils Absolute Auto 0 /uL (0-450); Hematocrit 42.8 % (41-53); Hemoglobin 14.5 g/dL (13.5-17.5); Lymphocytes Absolute Auto 1000 /uL (1100-4500); Lymphocytes Percent Auto 7.5 % (25-40); Mean Corpuscular HGB Conc 33.9 % (30-36); Mean Corpuscular Hemoglobin 30.3 PG (26-34); Mean Corpuscular Volume 89.4 fL (80-100); Monocytes Absolute Auto 600 /uL (0-900); Monocytes Percent Auto 4.5 % (3-14); Neutrophils Absolute Auto 12200 /uL (1500-7000); Neutrophils Percent Auto 87.8 % (50-75); Platelet Count 189 X10^3/uL (150-400); Red Blood Cell Count 4.79 X10^6/uL (4.5-5.9); Red Cell Distribution Width 13.9 % (11.6-14.8); White Blood Cell Count 13.9 X10^3/uL (4.5-11.0)
[2022-08-27 06:39] LABS: BUN Creatinine Ratio 34.8 (6-22); Blood Urea Nitrogen 23 mg/dL (9-20); Calcium 8.3 mg/dL (8.4-10.2); Carbon Dioxide 38 mmol/L (22-32); Chloride 101 mmol/L (98-107); Estimated Glomerular Filt Rate > 60 mL/min (>60); Glucose 135 mg/dL (80-110); HEMOLYSIS 16 (0-50); Potassium 3.2 mmol/L (3.4-5.1); Sodium 140 mmol/L (137-145)
[2022-08-27 06:57] LABS: Vancomycin Trough 9.4 ug/mL (10-20)
[2022-08-27] MEDS: VANCOMYCIN 1,500 MG/300 ML PIGGYBACK 200 MG IV (07:51)
--- NOTE | 2022-08-27 08:06 | DI.RAD.S_ITS ---
PROCEDURE: XR CHEST 1V INDICATIONS: pneumonia, post obstructive TECHNIQUE: One view of the chest was acquired. COMPARISON: [facility], CR, XR CHEST 2V, 08/24/2022, 12:14. FINDINGS: Surgical changes and devices: None. Lungs and pleura: Lungs are clear. No pleural effusions or pneumothorax. Mediastinum: A lobulated mediastinal contour is seen on the right, similar to a prior chest x-ray on 08/24/2022. Bibasilar infiltrates are likely atelectasis or related to fibrosis. No pneumothorax or pleural effusion. Bones and chest wall: No suspicious bony lesions. Overlying soft tissues appear unremarkable. IMPRESSION: 1. Bibasilar infiltrates, probably atelectasis. 2. Lobulated contour of the mediastinum. Dictated by: Rolly Sparrow M.D. on 08/27/2022 at 8:38 Approved by: Rolly Sparrow M.D. on 08/27/2022 at 8:40
[2022-08-27] MEDS: carvediloL 3.125 MG TABLET 6.25 MG PO (08:28)
[2022-08-27] MEDS: POTASSIUM CHLORIDE 20 MEQ TAB 40 MEQ PO (08:28)
[2022-08-27] MEDS: AMLODIPINE 5 MG TABLET 10 MG PO (08:28)
[2022-08-27] MEDS: LOSARTAN 50 MG TABLET 100 MG PO (08:29)
--- NOTE | 2022-08-27 08:51 | PC.NURSE ---
Addendum entered by Mariah Rao CNA 08/27/22 11:21: TIMOTEO Note: Update: Pt has been accepted at [facility] by Dr. Machado. Original Note: TIMOTEO Note: Pt is still on waitlists for [facility], [facility] & . Will call back again in the afternoon with any updates on placements after discharges.
[2022-08-27] MEDS: VANCOMYCIN PEAK 1 REQUEST MISC (10:52)
[2022-08-27 11:02] LABS: Vancomycin Peak 24.1 ug/mL (20-40)
== END 2022-08-27 12:37 | disposition short-term general hospital (02) ==
PROVIDERS: Emergency Medicine; Student in an Organized Health Care Education/Training Program; Emergency Provider Emergency Medicine
DX: J18.8 Other pneumonia, unspecified organism (principal); J96.01 Acute respiratory failure with hypoxia; E87.6 Hypokalemia; Z20.822 Contact with and (suspected) exposure to COVID-19
CPT/HCPCS: 0241U; 36415; 36600; 71045; 71046; 71275; 80048; 80053; 80202; 81003; 82550; 82805; 83605; 83690; 83735; 83880; 84100; 84145; 84484; 85025; 87040; 87797; 93005; 93010; 93306; 96365; 96366; 96367; 96368; 99284; 99285; J0692; J0696; Q9967

== ENCOUNTER 2022-10-05 11:58 | Emergency (ER) | payer MEDICARE, MEDICAID, SELFPAY ==
[2022-10-05] VITALS (28 sets, daily range): BP systolic 106–170; BP diastolic 71–92; PULSE 71–118; RESP 10–21; TEMP 36.9–37.4; O2SAT 90–97; BMI 26.1
--- NOTE | 2022-10-05 12:13 | DI.RAD.S_ITS ---
PROCEDURE: XR CHEST 1V INDICATIONS: suspected sepsis TECHNIQUE: One view of the chest was acquired. COMPARISON: [facility], CR, XR CHEST 1V, 08/27/2022, 8:19. FINDINGS: Surgical changes and devices: None. Lungs and pleura: Lungs are clear. No pleural effusions or pneumothorax. Mediastinum: Mediastinal contours appear normal. Heart size is normal. Bones and chest wall: No suspicious bony lesions. Overlying soft tissues appear unremarkable. IMPRESSION: No acute cardiopulmonary disease. Dictated by: Rita Calles M.D. on 10/05/2022 at 12:31 Approved by: Rita Calles M.D. on 10/05/2022 at 12:32
--- NOTE | 2022-10-05 12:24 | DI.CT.S_ITS ---
PROCEDURE: CT HEAD/BRAIN WO CON INDICATIONS: altered mental status TECHNIQUE: Noncontrast 4.5 mm thick angled axial sections acquired from the foramen magnum to the vertex, with coronal and sagittal reformats. For radiation dose reduction, the following was used: automated exposure control, adjustment of mA and/or kV according to patient size. COMPARISON: None. FINDINGS: Image quality: Excellent. CSF spaces: Basal cisterns are patent. No extra-axial fluid collections. The ventricles are symmetric in size and shape. Brain: No intracranial bleeds or masses. There is cerebral volume loss for age, with resultant ventricular and sulcal prominence. There are periventricular and deep white matter chronic small vessel ischemic changes. There is intracranial internal carotid artery atherosclerosis. Skull and face: Calvarium and visualized facial bones appear intact, without suspicious lesions. Sinuses: Visualized sinuses and mastoids are clear. IMPRESSION: 1. No CT evidence of acute intracranial process. 2. Age-appropriate exam. Dictated by: Rita Calles M.D. on 10/05/2022 at 12:32 Approved by: Rita Calles M.D. on 10/05/2022 at 12:34
[2022-10-05 12:41] LABS: Hematocrit 44.4 % (41-53); Hemoglobin 15.2 g/dL (13.5-17.5); Mean Corpuscular HGB Conc 34.2 % (30-36); Mean Corpuscular Hemoglobin 30.2 PG (26-34); Mean Corpuscular Volume 88.2 fL (80-100); Platelet Count 167 X10^3/uL (150-400); Red Blood Cell Count 5.04 X10^6/uL (4.5-5.9); White Blood Cell Count 21.6 X10^3/uL (4.5-11.0)
[2022-10-05 12:42] LABS: Add Manual Diff / Slide Review YES; INR 1.1 (0.9-1.3); Prothrombin Time 12.3 SECONDS (10.1-12.7)
[2022-10-05 12:45] LABS: PTT Partial Thromboplastin Tim 20 SECONDS (26-36)
[2022-10-05 12:51] LABS: Albumin 3.2 g/dL (3.5-5.0); Albumin Globulin Ratio 1.3 (1.0-2.8); Alkaline Phosphatase 116 U/L (38-126); Aspartate Aminotransferase 119 IU/L (17-59); BUN Creatinine Ratio 26.4 (6-22); Bilirubin Total 0.9 mg/dL (0.2-1.3); Blood Urea Nitrogen 19 mg/dL (9-20); Calcium 8.5 mg/dL (8.4-10.2); Carbon Dioxide 30 mmol/L (22-32); Chloride 97 mmol/L (98-107); Creatine Kinase 31 U/L (55-170); Estimated Glomerular Filt Rate > 60 mL/min (>60); Globulin 2.5 g/dL (1.7-4.1); Glucose 318 mg/dL (80-110); HEMOLYSIS 37 (0-50); Lipase 208 U/L (23-300); Potassium 4.2 mmol/L (3.4-5.1); Sodium 134 mmol/L (137-145); Total Protein 5.7 g/dL (6.3-8.2)
[2022-10-05 12:52] LABS: Lactate (Lactic Acid) 5.2 mmol/L (0.7-2.1)
[2022-10-05 12:57] LABS: Alanine Aminotransferase 378 IU/L (<50)
--- NOTE | 2022-10-05 13:01 | ED_ITS ---
HPI - Altered Mental Status General Chief Complaint: Altered Mental Status Stated Complaint: disoriented Time Seen by Provider: 10/05/22 12:57 Source: patient, family, RN notes reviewed and old records reviewed Mode of arrival: Wheelchair Limitations: no limitations History of Present Illness HPI narrative: This is a 71-year-old male with history of hypertension, recent hospitalization for strep pneumonia sent to [facility] received antibiotics and was told he should have a bronch but was put off secondary to hypokalemia as an outpatient. He has not followed up with that sounds like there was change to the long. Patient states he is felt off for the last day or so, he knows his name he knows where he is at he can answer most history appropriately does seem to defer a lot of answers to his family at bedside. Patient denies fevers or chills, he denies headache, no neck pain, no chest pain or shortness of breath. He denies cold, cough or congestion. He denies abdominal pain, back or flank pain. Does note he had some back pain a couple days ago that his family gave him a back massage and it went away. He denies nausea or vomiting. He states he is had a good appetite. He has been stooling regularly. No bright red blood or melanotic stools. No dysuria, urgency or frequency. He and his family have noticed some increased swelling in his lower extremity for the last few weeks but thought it might be a side effect from 1 of his new blood pressure medications. They have noticed his skin been sort of dry and peeling but no rashes with blistering redness or other changes. Patient states no blood thinners, he is on medications for hypertension he took a half dose of his amlodipine today rather than his full nose and took his losartan. No history of diabetes, dyslipidemia. No prior surgeries. No known drug allergies. Quit smoking tobacco, no alcohol or illicit. Primary care's knee Vicente through [facility]. He was told to follow-up to have a bronch with pulmonology but were told that it could not have it until his potassium was more stable. He was taking potassium 40 mEq daily. He had lab draw week ago which was normal but had a glucose that was elevated at 262. Related Data Home Medications Medication Instructions Recorded Confirmed amlodipine 5 mg tablet 5 mg PO DAILY 08/24/22 08/24/22 losartan 100 mg tablet 100 mg PO DAILY 08/24/22 08/24/22 Allergies Allergy/AdvReac Type Severity Reaction Status Date / Time No Known Drug Allergies Allergy Verified 08/24/22 17:14 Review of Systems Review of Systems ROS Unobtainable: All systems reviewed & are unremarkable except as noted in HPI and below Patient History Medical History Hypertension Social History Smoking Status: Former smoker Smoking Status: Former smoker Substance Use Type: marijuana Exam Narrative Exam Narrative: GEN: well nourished, well appearing male, alert and oriented x 3, patient appears to be in mild distress. HEENT: Atraumatic, pupils are equal round reactive to light, extraocular movements are intact, nares are clear, TMs are clear with no fluid, there is no conjunctival pallor. Throat is clear without any exudates, erythema, tonsillar enlargement or uvular deviation, no lymphadenopathy. Full range of motion. No meningeal signs. HEART: Regular but tachycardic rate and rhythm without murmur, clicks, rubs. Pulses are equal in upper and lower extremities LUNGS:Lungs clear to auscultation, no wheezes, rales, crackles, chest moves symmetrically, no tachypnea or accessory muscle use ABD:bowel sounds normal, soft, non-tender, no guarding, rebound, rigidity, no masses noted, no hepatosplenomegaly :No CVA tenderness MSCL: Non-tender, no muscle atrophy, muscles strength 5/5 upper and lower extremities, full range of motion, normal gait NEURO:CN 2-12 intact, sensation normal SKIN: Patient has some slight dry flaky skin but no warmth, erythema, no petechiae no other rash or skin changes appreciated Initial Vital Signs Initial Vital Signs: Vital Signs Temperature 98.5 F 10/05/22 12:07 Pulse Rate 118 H 10/05/22 12:07 Respiratory Rate 16 10/05/22 12:07 Blood Pressure 127/92 H 10/05/22 12:07 Pulse Oximetry 95 10/05/22 12:07 Oxygen Delivery Method Room Air 10/05/22 12:07 Scores GCS [place] coma scale eye opening: Spontaneous [place] coma scale verbal response: Orientated [place] coma scale motor response: Obey commands [place] coma scale total score: 15 Course Orders Ordered: ED Orders 10/05/22 12:13 XR chest 1V Stat EKG-12 Lead Stat RT Consult Eval and Treat NOW 10/05/22 12:20 BNP [NT-proBNP (BNP-Adult 18+)] Stat Complete Blood Count AUTO DIFF Stat Comprehensive Metabolic Panel Stat Lactate (Lactic Acid) Stat Lipase Stat PTT Partial Thromboplastin Evert Stat Procalcitonin Stat Prothrombin Time INR Stat Troponin & CK Cardiac Panel Stat 10/05/22 12:24 CT head/brain wo con Stat 10/05/22 13:29 CT chest abd pel w con Stat 10/05/22 13:30 Blood Culture Stat 10/05/22 14:15 UA Complete [Urinalysis and Microscopic] Stat 10/05/22 15:00 Trop I [Troponin I] Stat 10/05/22 15:58 COVID19 -Nasal RAPID Stat Ondansetron HCl (Ondansetron 4 Mg/2 Ml Inj) 4 mg IV NOW PRN PRN Reason: Nausea And Vomiting Ondansetron HCl (Ondansetron 4 Mg Odt) 4 mg SL NOW PRN PRN Reason: Nausea And Vomiting Discontinued Medications Sodium Chloride (Normal Saline 0.9%) 1,000 mls @ 1,000 mls/hr IV BOLUS ONE Stop: 10/05/22 13:12 Last Admin: 10/05/22 12:58 Dose: Not Given Documented By: SARA Sodium Chloride (Normal Saline 0.9%) 2,476.62 mls @ 825.54 mls/hr 30 ml/kg infuse over 3 hr (2476.62 ml) IV NOW ONE Stop: 10/05/22 15:56 Last Infusion: 10/05/22 17:01 Dose: 0 mls/hr Documented By: Admin: 10/05/22 13:13 Dose: 825.54 mls/hr Documented By: NR Piperacillin Sod/Tazobactam (Sod 4.5 gm/ Sodium Chloride) 100 mls @ 200 mls/hr IV NOW ONE Stop: 10/05/22 13:29 Last Infusion: 10/05/22 15:13 Dose: 0 mls/hr Documented By: Admin: 10/05/22 13:53 Dose: 200 mls/hr Documented By: RB Vancomycin HCl (Vancomycin) 1,250 mg in 250 mls @ 250 mls/hr IV NOW ONE Stop: 10/05/22 14:28 Last Infusion: 10/05/22 16:23 Dose: 0 mls/hr Documented By: Admin: 10/05/22 15:18 Dose: 250 mls/hr Documented By: RB Lidocaine HCl (Lidocaine 2% (Glydo) 6 Ml Gel) 6 ml TOP NOW ONE Stop: 10/05/22 14:24 Last Admin: 10/05/22 14:50 Dose: 6 ml Documented By: RB Vital Signs Vital signs: Vital Signs - 8 hr 10/05/22 12:07 10/05/22 12:07 10/05/22 12:07 Temperature 98.5 F Pulse Rate 118 H 71 Respiratory Rate 16 Blood Pressure 127/92 H 127/92 H Pulse Oximetry 95 91 Oxygen Delivery Method Room Air 10/05/22 12:30 10/05/22 12:44 10/05/22 12:44 Temperature Pulse Rate 114 H 114 H Respiratory Rate 18 21 Blood Pressure 107/78 Pulse Oximetry 95 95 Oxygen Delivery Method Room Air Room Air 10/05/22 13:00 10/05/22 13:00 10/05/22 13:30 Temperature Pulse Rate 112 H 108 H Respiratory Rate 14 13 Blood Pressure 120/84 Pulse Oximetry 93 93 Oxygen Delivery Method Room Air Room Air 10/05/22 13:48 10/05/22 13:48 10/05/22 14:00 Temperature Pulse Rate 106 H Respiratory Rate 18 Blood Pressure 133/84 170/91 H Pulse Oximetry 97 Oxygen Delivery Method 10/05/22 14:00 10/05/22 14:21 10/05/22 14:21 Temperature Pulse Rate 105 H 102 H Respiratory Rate 18 11 L Blood Pressure 138/82 Pulse Oximetry 94 95 Oxygen Delivery Method 10/05/22 14:30 10/05/22 14:30 10/05/22 14:45 Temperature Pulse Rate 108 H Respiratory Rate 21 Blood Pressure 151/90 H 146/88 H Pulse Oximetry 95 Oxygen Delivery Method 10/05/22 14:45 10/05/22 15:00 10/05/22 15:00 Temperature 99.0 F Pulse Rate 102 H 104 H Respiratory Rate 16 12 Blood Pressure 117/79 Pulse Oximetry 95 93 Oxygen Delivery Method Room Air 10/05/22 15:15 10/05/22 15:15 10/05/22 15:30 Temperature 99.0 F Pulse Rate 101 H Respiratory Rate 13 Blood Pressure 113/75 111/72 Pulse Oximetry 90 L Oxygen Delivery Method 10/05/22 15:30 10/05/22 15:45 10/05/22 15:45 Temperature 99.0 F 99.0 F Pulse Rate 99 H 98 H Respiratory Rate 19 13 Blood Pressure 125/84 Pulse Oximetry 91 93 Oxygen Delivery Method 10/05/22 16:00 10/05/22 16:00 10/05/22 16:15 Temperature 99.0 F Pulse Rate 98 H Respiratory Rate 14 Blood Pressure 137/84 122/82 Pulse Oximetry 93 Oxygen Delivery Method Room Air 10/05/22 16:15 10/05/22 16:30 10/05/22 16:30 Temperature 98.6 F 99.0 F Pulse Rate 96 H 97 H Respiratory Rate 13 10 L Blood Pressure 134/86 Pulse Oximetry 92 95 Oxygen Delivery Method Room Air Room Air 10/05/22 16:45 10/05/22 16:45 10/05/22 17:00 Temperature 99.0 F Pulse Rate 96 H Respiratory Rate 13 Blood Pressure 115/79 137/81 Pulse Oximetry 90 L Oxygen Delivery Method Room Air 10/05/22 17:00 10/05/22 17:15 10/05/22 17:15 Temperature 98.8 F 99.0 F Pulse Rate 99 H 100 H Respiratory Rate 17 11 L Blood Pressure 129/75 Pulse Oximetry 94 93 Oxygen Delivery Method Room Air 10/05/22 17:30 10/05/22 17:31 10/05/22 17:31 Temperature 99.0 F 99.0 F Pulse Rate 100 H 100 H Respiratory Rate 12 12 Blood Pressure 120/77 Pulse Oximetry 93 93 Oxygen Delivery Method 10/05/22 17:45 10/05/22 17:45 10/05/22 18:00 Temperature 99.0 F Pulse Rate 102 H Respiratory Rate 12 Blood Pressure 123/83 132/79 Pulse Oximetry 93 Oxygen Delivery Method 10/05/22 18:00 Temperature 99.0 F Pulse Rate 102 H Respiratory Rate 13 Blood Pressure Pulse Oximetry 92 Oxygen Delivery Method MDM - Altered Mental Status Lab Data 10/05/22 12:20 10/05/22 12:20 Labs: Lab Results 10/05/22 10/05/22 10/05/22 Range/Units 12:20 12:20 12:20 WBC 21.6 H (4.5-11.0) X10^3/uL RBC 5.04 (4.5-5.9) X10^6/uL Hgb 15.2 (13.5-17.5) g/dL Hct 44.4 (41-53) % MCV 88.2 (80-100) fL MCH 30.2 (26-34) PG MCHC 34.2 (30-36) % RDW 14.0 (11.6-14.8) % Plt Count 167 (150-400) X10^3/uL Neut % (Auto) Not Reportable Lymph % (Auto) Not Reportable [place] % (Auto) Not Reportable Eos % (Auto) Not Reportable Baso % (Auto) Not Reportable Lymph # (Auto) Not Reportable [place] # (Auto) Not Reportable Baso # (Auto) Not Reportable Total Counted 100 Seg Neutrophils % 89.0 H (38-70) % Band Neutrophils % 5.0 (3-7) % Lymphocytes % (Manual) 3.0 L (25-45) % Monocytes % (Manual) 2.0 (2-11) % Metamyelocytes % 1.0 H (-0) % Neutrophils # (Manual) 36833 H (5808-9273) /uL RBC Morphology Normal morphology PT 12.3 (10.1-12.7) SECONDS INR 1.1 (0.9-1.3) APTT 20 L (26-36) SECONDS Sodium 134 L (137-145) mmol/L Potassium 4.2 (3.4-5.1) mmol/L Chloride 97 L (98-107) mmol/L Carbon Dioxide 30 (22-32) mmol/L BUN 19 (9-20) mg/dL Creatinine 0.72 (0.66-1.25) mg/dL Estimated GFR > 60 (>60) mL/min BUN/Creatinine Ratio 26.4 H (6-22) Glucose 318 H (80-110) mg/dL Lactate (0.7-2.1) mmol/L Calcium 8.5 (8.4-10.2) mg/dL Total Bilirubin 0.9 (0.2-1.3) mg/dL AST 119 H (17-59) IU/L ALT 378 H (<50) IU/L Alkaline Phosphatase 116 (38-126) U/L Total Creatine Kinase 31 L (55-170) U/L CK-MB (CK-2) TNP CK-MB (CK-2) Rel Index TNP Troponin I 0.049 H (0.01-0.034) ng/mL NT-Pro-B Natriuret Pep (<125) pg/mL Total Protein 5.7 L (6.3-8.2) g/dL Albumin 3.2 L (3.5-5.0) g/dL Globulin 2.5 (1.7-4.1) g/dL Albumin/Globulin Ratio 1.3 (1.0-2.8) Lipase 208 (23-300) U/L Procalcitonin 1.13 H (<0.5) ng/mL Urine Color Urine Appearance Urine pH (4.5-8.0) Ur Specific [place] (1.000-1.035) Urine Protein (Negative) Urine Glucose (UA) (Negative) g/dL Urine Ketones (NEGATIVE) Urine Occult Blood (Negative) Urine Nitrate (Negative) Urine Bilirubin (NEGATIVE) Urine Urobilinogen (0.2) E.U./dL Ur Leukocyte Esterase (NEGATIVE) Urine RBC (0-5/HPF) Urine WBC (0-5/HPF) Ur Squamous Epith Cells (0-5/HPF) Urine Bacteria (None) Ur Culture Indicated? SARS-CoV-2 (PCR) (Negative) 10/05/22 10/05/22 10/05/22 Range/Units 12:20 12:20 14:15 WBC (4.5-11.0) X10^3/uL RBC (4.5-5.9) X10^6/uL Hgb (13.5-17.5) g/dL Hct (41-53) % MCV (80-100) fL MCH (26-34) PG MCHC (30-36) % RDW (11.6-14.8) % Plt Count (150-400) X10^3/uL Neut % (Auto) Lymph % (Auto) [place] % (Auto) Eos % (Auto) Baso % (Auto) Lymph # (Auto) [place] # (Auto) Baso # (Auto) Total Counted Seg Neutrophils % (38-70) % Band Neutrophils % (3-7) % Lymphocytes % (Manual) (25-45) % Monocytes % (Manual) (2-11) % Metamyelocytes % (-0) % Neutrophils # (Manual) (6413-0659) /uL RBC Morphology PT (10.1-12.7) SECONDS INR (0.9-1.3) APTT (26-36) SECONDS Sodium (137-145) mmol/L Potassium (3.4-5.1) mmol/L Chloride (98-107) mmol/L Carbon Dioxide (22-32) mmol/L BUN (9-20) mg/dL Creatinine (0.66-1.25) mg/dL Estimated GFR (>60) mL/min BUN/Creatinine Ratio (6-22) Glucose (80-110) mg/dL Lactate 5.2 H* (0.7-2.1) mmol/L Calcium (8.4-10.2) mg/dL Total Bilirubin (0.2-1.3) mg/dL AST (17-59) IU/L ALT (<50) IU/L Alkaline Phosphatase (38-126) U/L Total Creatine Kinase (55-170) U/L CK-MB (CK-2) CK-MB (CK-2) Rel Index Troponin I (0.01-0.034) ng/mL NT-Pro-B Natriuret Pep 495 H (<125) pg/mL Total Protein (6.3-8.2) g/dL Albumin (3.5-5.0) g/dL Globulin (1.7-4.1) g/dL Albumin/Globulin Ratio (1.0-2.8) Lipase (23-300) U/L Procalcitonin (<0.5) ng/mL Urine Color Yellow Urine Appearance Clear Urine pH 7.0 (4.5-8.0) Ur Specific [place] 1.010 (1.000-1.035) Urine Protein Negative (Negative) Urine Glucose (UA) Trace H (Negative) g/dL Urine Ketones Negative (NEGATIVE) Urine Occult Blood Trace-intact (Negative) Urine Nitrate Negative (Negative) Urine Bilirubin Negative (NEGATIVE) Urine Urobilinogen 0.2 (0.2) E.U./dL Ur Leukocyte Esterase Negative (NEGATIVE) Urine RBC 1-5/hpf (0-5/HPF) Urine WBC None seen (0-5/HPF) Ur Squamous Epith Cells None seen (0-5/HPF) Urine Bacteria None seen (None) Ur Culture Indicated? Cult not indicated SARS-CoV-2 (PCR) (Negative) 10/05/22 10/05/22 10/05/22 Range/Units 15:00 15:00 15:58 WBC (4.5-11.0) X10^3/uL RBC (4.5-5.9) X10^6/uL Hgb (13.5-17.5) g/dL Hct (41-53) % MCV (80-100) fL MCH (26-34) PG MCHC (30-36) % RDW (11.6-14.8) % Plt Count (150-400) X10^3/uL Neut % (Auto) Lymph % (Auto) [place] % (Auto) Eos % (Auto) Baso % (Auto) Lymph # (Auto) [place] # (Auto) Baso # (Auto) Total Counted Seg Neutrophils % (38-70) % Band Neutrophils % (3-7) % Lymphocytes % (Manual) (25-45) % Monocytes % (Manual) (2-11) % Metamyelocytes % (-0) % Neutrophils # (Manual) (0965-0036) /uL RBC Morphology PT (10.1-12.7) SECONDS INR (0.9-1.3) APTT (26-36) SECONDS Sodium (137-145) mmol/L Potassium (3.4-5.1) mmol/L Chloride (98-107) mmol/L Carbon Dioxide (22-32) mmol/L BUN (9-20) mg/dL Creatinine (0.66-1.25) mg/dL Estimated GFR (>60) mL/min BUN/Creatinine Ratio (6-22) Glucose (80-110) mg/dL Lactate 2.6 H (0.7-2.1) mmol/L Calcium (8.4-10.2) mg/dL Total Bilirubin (0.2-1.3) mg/dL AST (17-59) IU/L ALT (<50) IU/L Alkaline Phosphatase (38-126) U/L Total Creatine Kinase (55-170) U/L CK-MB (CK-2) CK-MB (CK-2) Rel Index Troponin I 0.049 H (0.01-0.034) ng/mL NT-Pro-B Natriuret Pep (<125) pg/mL Total Protein (6.3-8.2) g/dL Albumin (3.5-5.0) g/dL Globulin (1.7-4.1) g/dL Albumin/Globulin Ratio (1.0-2.8) Lipase (23-300) U/L Procalcitonin (<0.5) ng/mL Urine Color Urine Appearance Urine pH (4.5-8.0) Ur Specific [place] (1.000-1.035) Urine Protein (Negative) Urine Glucose (UA) (Negative) g/dL Urine Ketones (NEGATIVE) Urine Occult Blood (Negative) Urine Nitrate (Negative) Urine Bilirubin (NEGATIVE) Urine Urobilinogen (0.2) E.U./dL Ur Leukocyte Esterase (NEGATIVE) Urine RBC (0-5/HPF) Urine WBC (0-5/HPF) Ur Squamous Epith Cells (0-5/HPF) Urine Bacteria (None) Ur Culture Indicated? SARS-CoV-2 (PCR) Negative (Negative) Point of Care Testing Glucose POC 190 Imaging Data Chest x-ray: Radiologist's Impression: No acute cardiopulmonary disease. CT chest/abd/pelvis: Radiologist's Impression: Close Chest/Abdomen/Pelvis CT (Signed) Rita Calles - 10/05/[address] (Signed) Stevan,Rita - 10/05/22 Chest X-Ray (Signed) Stevan,Rita - 10/05/22 Chest X-Ray (Signed) Rolly Sparrow - 08/27/22 Chest CTA (Signed) Stevan,Rita - 08/24/22 Echocardiogram Ultrasound (Signed) Dustin Cartwright - 08/24/22 EKG Rpt. 08/24/22 EKG Rpt. 08/24/22 Chest X-Ray (Signed) Stevan,Rita - 08/24/22 Launch?[address] [address] [address] Scan Report Signed Patient: Agapito Mora MR#: [id number] : 1950 Acct:[id number] Age/Sex: 71 / M Date of Service: 10/05/22 Loc: ED Accession Number: [id number] ?? Procedure: CT chest abd pel w con Ordering Provider: Divina Cabral D.O. PROCEDURE:? CT CHEST ABD PEL W CON ? INDICATIONS:? feels off had obstructive pna 1 month ago, sepsis ? TECHNIQUE:? After the administration of oral and intravenous contrast, axial sections acquired from the supraclavicular neck to the pubic symphysis.? Coronal and sagittal reformats were performed.? For radiation dose reduction, the following was used:? automated exposure control, adjustment of mA and/or kV according to patient size.? ? COMPARISON: ? [facility], CT, CT ANGIO CHEST PE PROTOCOL, 08/24/2022, 17:33. ? FINDINGS:? Image quality:? Excellent.? ? CHEST: Lower Neck:? Bilateral lower neck enlarged lymph nodes.? Left side measures 1.8 cm in short axis.? Thyroid:? Normal. Axillae: No enlarged lymph nodes. Chest Wall:? Unremarkable.? ? Lungs and Airways:? There are moderate centrilobular emphysematous changes.? Several small patchy spiculated airspace opacities in the right upper lobe, anterior left upper lobe, and rounded nodular opacities in the right suprahilar region.? There is irregular reticular thickening involving the right lower lobe and moderate bronchial wall thickening.? These findings have progressed since the prior study. Pleura: No pneumothorax or pleural effusions.? ? Heart:? Normal size heart with a small pericardial effusion. Thoracic Vessels:? The aorta caliber is stable.? Main pulmonary outflow tract is mildly dilated, similar compared to prior. Mediastinum and Genna:? Redemonstrated bulky mediastinal and particularly right hilar adenopathy.? The right suprahilar adenopathy narrows and nearly occludes the right upper lobe pulmonary artery.? This finding has progressed since the prior study. Esophagus: No wall thickening.? No hiatal hernia. ? ? ABDOMEN: Liver:? Normal size liver with tiny hepatic hypodensities, probably cysts. Gallbladder:? Decompressed. Biliary ducts:? Nondilated. Pancreas:? Numerous parenchymal calcifications of chronic pancreatitis. Spleen:? Unremarkable.? ? Adrenal Glands:? Diffuse right adrenal gland thickening and two left adrenal nodules, stable compared to most recent prior study. Kidneys and Ureters: Symmetric enhancement.? No nephrolithiasis or hydronephrosis.? No hydroureter.? Right posterior renal cystic lesion. ? Stomach and Bowel:? Stomach, small bowel loops, and colon are unremarkable.? Peritoneum:? No abnormal intraperitoneal fluid.? No free air.? ? Ventral Wall: ? No hernia.? Abdominal Nodes:? No retroperitoneal or mesenteric adenopathy by size criteria.? Vessels:? Aorta and inferior vena cava are normal in size.? Moderate abdominal aortic atherosclerotic calcification.? ? PELVIS: Pelvic Organs:? Mild prostatomegaly Bladder:? Unremarkable.? ? Pelvic Nodes: No enlarged lymph nodes.? Miscellaneous: No inguinal hernias are seen. ? ? ? Bones:? Several round enhancing lesions throughout the osseous structures of the spine, ribs, and pelvis.? These findings have progressed since the prior study.? There is a new T4 superior endplate compression fracture, probably a pathologic fracture.? Destructive left posterior rib fracture. ? IMPRESSION:? ? 1.? Progressive adenopathy in the lower neck, chest, and particularly right hilum suspicious for malignancy. ? 2.? Parenchymal changes in the right lung of small spiculated areas, and irregular lower lobe reticulation which may be infectious and not significantly cleared since the prior study. ? 3.? There is enlargement of the pulmonary outflow tract, probably due to obstructing adenopathy in the right superior hilar region.? Mild progression. ? 4. 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 ? 5. Two nonspecific left adrenal nodules, adenomas versus metastatic disease. ? 6. Changes of chronic pancreatitis. ? 7. Discussed with Dr. Cabral in the emergency room at 14:19 hours [place] daylight time.? Dictated by: Rita Calles M.D. on 10/05/2022 at 14:09 ? ? Approved by: Rita Calles M.D. on 10/05/2022 at 14:27 ECG Data Attestation: I personally reviewed and interpreted this ECG as follows: Prior ECG tracings: available for review Interpretation: Sinus tachycardia, rate of 113 DE 146 QRS of 94 and QTC of 458. No acute ST elevation or depression. Patient has prior from 08/24/2022 which appears similar. MDM Narrative Medical decision making narrative: This is a 71-year-old male with recent strep pneumonia possibly postobstructive who was transferred to [facility] for possible bronch but they were unable to perform per family because potassium was too low. Patient states he just feels off. He is alert, oriented he is able to answer most questions but does defer a lot to his daughter. She does not appreciate significant altered mental status but states he does seem little off. Patient does not have any clear infectious changes but he is slightly tachycardic here in the department he is afebrile, not hypotensive, room where is appropriate. Labs reflect infection with leukocytosis, no bandemia but leftward shift, patient's lactate is elevated as well as procalcitonin. Blood cultures were pending. Patient's renal function appears appropriate sodium is 134 with chloride 97 potassium is appropriate at 4.2. Glucose is 318 which is elevated from priors, AST ALT are both little elevated at 119 and 378, total bili is negative. Lipase is negative. Trope was 0.049 patient does not have any new ST changes he is tachycardic. BNP shows Repeat lactate UA Head CT and chest x-ray show no acute changes from prior. Patient had sounds like an area of possible narrowing in the bronchus so CT chest abdomen pelvis was obtained to evaluate for possible recurrent pneumonia- patient has worsening adenopathy, what appears to be metastatic lesions to the bone but not lytic, increased right hilar bulky adenopathy causing some compression and pulmonary hypertension type changes and a likely postobstructive pneumonia. Radiology states this has significantly worsened since last month. They still recommend bronch or some form as they suspect malignancy as the main source of issue. LFTs are slightly elevated abdominal evaluation as well. Patient was given 30 cc/kilos fluid bolus, Zosyn and vanco for broad-spectrum coverage. Tachycardia improved somewhat, lactate trending down words to 2.6. Attempting to obtain records from [facility], weekend so it is a little bit more difficult to do at this time. Spoke with Dr. Sunshine, hospitalist at [facility] he agrees patient likely needs a bronch we do not have this available here and benefit from more urgent pulmonology and likely oncology consultation. Discussed with patient and family. Will try [facility] as he was just there. Spoke with Dr. Gilbert, hospitalist who accepts for transfer. Patient received bed assignment. Tachycardia is improved no hypotension. Critical Care Time Critical Care Time Attestation: The high probability of a clinically significant, sudden or life threatening deterioration of the [pulm,cardiac] system(s) required my full and direct attention, intervention and personal management. The aggregate critical care time was [] minutes. This time is in addition to time spent performing reported procedures but includes the following: [x] Data Review and interpretation [x] Patient assessment and monitoring of vital signs [x] Documentation [x] Medication orders and management Discharge Plan Departure Patient Disposition: [facility] Clinical Impression: Sepsis, Obstructive pneumonia, Adenopathy, hilar Prescriptions: No Action amlodipine 5 mg Tablet 5 mg PO DAILY losartan 100 mg Tablet 100 mg PO DAILY Referrals: Miscellaneous,Doctor, MD [Primary Care Provider] -
[2022-10-05 13:02] LABS: Troponin I 0.049 ng/mL (0.01-0.034)
[2022-10-05 13:07] LABS: Procalcitonin 1.13 ng/mL (<0.5)
[2022-10-05] MEDS: SODIUM CHLORIDE 0.9% 825.54 ML IV (13:13)
[2022-10-05 13:15] LABS: Neutrophils Absolute Manual 20304 /uL (3000-5900); Total Cells Counted 100
[2022-10-05 13:16] LABS: RBC Morphology Normal Morphology
--- NOTE | 2022-10-05 13:29 | DI.CT.S_ITS ---
PROCEDURE: CT CHEST ABD PEL W CON INDICATIONS: feels off had obstructive pna 1 month ago, sepsis TECHNIQUE: After the administration of oral and intravenous contrast, axial sections acquired from the supraclavicular neck to the pubic symphysis. Coronal and sagittal reformats were performed. For radiation dose reduction, the following was used: automated exposure control, adjustment of mA and/or kV according to patient size. COMPARISON: [facility], CT, CT ANGIO CHEST PE PROTOCOL, 08/24/2022, 17:33. FINDINGS: Image quality: Excellent. CHEST: Lower Neck: Bilateral lower neck enlarged lymph nodes. Left side measures 1.8 cm in short axis. Thyroid: Normal. Axillae: No enlarged lymph nodes. Chest Wall: Unremarkable. Lungs and Airways: There are moderate centrilobular emphysematous changes. Several small patchy spiculated airspace opacities in the right upper lobe, anterior left upper lobe, and rounded nodular opacities in the right suprahilar region. There is irregular reticular thickening involving the right lower lobe and moderate bronchial wall thickening. These findings have progressed since the prior study. Pleura: No pneumothorax or pleural effusions. Heart: Normal size heart with a small pericardial effusion. Thoracic Vessels: The aorta caliber is stable. Main pulmonary outflow tract is mildly dilated, similar compared to prior. Mediastinum and Genna: Redemonstrated bulky mediastinal and particularly right hilar adenopathy. The right suprahilar adenopathy narrows and nearly occludes the right upper lobe pulmonary artery. This finding has progressed since the prior study. Esophagus: No wall thickening. No hiatal hernia. ABDOMEN: Liver: Normal size liver with tiny hepatic hypodensities, probably cysts. Gallbladder: Decompressed. Biliary ducts: Nondilated. Pancreas: Numerous parenchymal calcifications of chronic pancreatitis. Spleen: Unremarkable. Adrenal Glands: Diffuse right adrenal gland thickening and two left adrenal nodules, stable compared to most recent prior study. Kidneys and Ureters: Symmetric enhancement. No nephrolithiasis or hydronephrosis. No hydroureter. Right posterior renal cystic lesion. Stomach and Bowel: Stomach, small bowel loops, and colon are unremarkable. Peritoneum: No abnormal intraperitoneal fluid. No free air. Ventral Wall: No hernia. Abdominal Nodes: No retroperitoneal or mesenteric adenopathy by size criteria. Vessels: Aorta and inferior vena cava are normal in size. Moderate abdominal aortic atherosclerotic calcification. PELVIS: Pelvic Organs: Mild prostatomegaly Bladder: Unremarkable. Pelvic Nodes: No enlarged lymph nodes. Miscellaneous: No inguinal hernias are seen. Bones: Several round enhancing lesions throughout the osseous structures of the spine, ribs, and pelvis. These findings have progressed since the prior study. There is a new T4 superior endplate compression fracture, probably a pathologic fracture. Destructive left posterior rib fracture. IMPRESSION: 1. Progressive adenopathy in the lower neck, chest, and particularly right hilum suspicious for malignancy. 2. Parenchymal changes in the right lung of small spiculated areas, and irregular lower lobe reticulation which may be infectious and not significantly cleared since the prior study. 3. There is enlargement of the pulmonary outflow tract, probably due to obstructing adenopathy in the right superior hilar region. Mild progression. 4. 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 5. Two nonspecific left adrenal nodules, adenomas versus metastatic disease. 6. Changes of chronic pancreatitis. 7. Discussed with Dr. Cabral in the emergency room at 14:19 hours [place] daylight time. Dictated by: Rita Calles M.D. on 10/05/2022 at 14:09 Approved by: Rita Calles M.D. on 10/05/2022 at 14:27
[2022-10-05] MEDS: PIPERACILLIN/TAZO 4.5 GM in SODIUM CHLORIDE 0.9% 100 ML IV (13:53)
[2022-10-05 14:29] LABS: Reflexed Lactate in 2 Hours Y
[2022-10-05] MEDS: LIDOCAINE 2% (GLYDO) 6 ML GEL TOP (14:50)
[2022-10-05 15:08] LABS: Appearance Urine UA CLEAR; Bilirubin Urine UA NEGATIVE (NEGATIVE); Color Urine UA YELLOW; Glucose Urine UA TRACE g/dL (Negative); Ketones Urine UA NEGATIVE (NEGATIVE); Leukocyte Esterase Urine UA NEGATIVE (NEGATIVE); Nitrite Urine UA NEGATIVE (Negative); Occult Blood Urine UA TRACE-INTACT (Negative); Protein Urine UA NEGATIVE (Negative); Urobilinogen Urine UA 0.2 E.U./dL (0.2)
[2022-10-05 15:17] LABS: Lactate 2HR (Lactic Acid Rflx) 2.6 mmol/L (0.7-2.1)
[2022-10-05 15:18] LABS: Bacteria Urine None Seen; Culture Indicated Urine Cult Not Indicated; RBC Urine 1-5/HPF (0-5/HPF); Squamous Epithelial Cell Urine None Seen (0-5/HPF); WBC Urine None Seen (0-5/HPF)
[2022-10-05] MEDS: VANCOMYCIN 1,250 MG/250 ML PIGGYBACK 250 MG IV (15:18)
[2022-10-05 15:46] LABS: Troponin I 0.049 ng/mL (0.01-0.034)
[2022-10-05 15:50] LABS: NT-proBNP (BNP-Adult 18+) 495 pg/mL (<125)
[2022-10-05 16:20] LABS: COVID19 -Nasal RAPID Negative (Negative)
--- NOTE | 2022-10-05 18:12 | PC.NURSE ---
Report given to Norma at [facility] about this patient. There were no further questions after our discussion. This RN gave her this Emergency Department direct phone number if they have and further questions.
[2022-10-06 22:40] LABS: x Labcorp Estim. Avg Glu (eAG) 197 mg/dL (.); x Labcorp Hemoglobin A1c 8.5 % (4.8-5.6)
== END 2022-10-05 19:30 | disposition short-term general hospital (02) ==
PROVIDERS: Emergency Provider Emergency Medicine
DX: A41.9 Sepsis, unspecified organism (principal); J18.8 Other pneumonia, unspecified organism; R59.0 Localized enlarged lymph nodes; R00.0 Tachycardia, unspecified; Z20.822 Contact with and (suspected) exposure to COVID-19; Z87.891 Personal history of nicotine dependence
CPT/HCPCS: 36415; 51798; 70450; 71045; 71260; 74177; 80053; 81001; 82550; 82962; 83036; 83605; 83690; 83880; 84145; 84484; 85007; 85025; 85610; 85730; 87040; 87635; 93005; 93010; 96365; 96367; 99285; 99291; C9803; J2543; Q9967